=== PATIENT | female | born 1970 | race Caucasian/White ===

== ENCOUNTER 2021-05-23 09:15 | Emergency (ER) | payer OTHER ==
--- OUTSIDE RECORDS SUMMARY | 2021-05-23 09:18 | XMS REPORT | Continuity of Care Document ---
:1970 Author Organization [facility] t Address [address] [place] [address] Care Team Providers Name Role Phone Siver Primary Care Physician THANH Attending Clinician Unavailable Thanh ZAMUDIO Attending Clinician Doctor Unassigned, Name Attending Clinician Unavailable Payers Payer Name Policy Type Policy Number Effective Date Expiration Date S shilo [employer] MEDICARE [id number] 2019 00:00:00 Problems Condition Condition Condition Status Onset Resolution Last Treating Co mments Source Name Details Category Date Date Treatment Clinician Date No known No known Disease Unive rs active active ity of problems problems [facility] Allergies, Adverse Reactions, Alerts Allergy Allergy Status Severity Reaction(s) Onset Inactive Treating Comm ents Source Name Type Date Date Clinician NO KNOWN Drug Active Univers ALLERGIE Class ity of S [facility] Social History Social Habit Start Date Stop Date Quantity Comments Source Exposure to Not sure [facility] SARS-CoV-2 (event) Medica l Branch Sex Assigned At [birth year] [facility] 00:00:00 00:00:00 Medical Branch Smoking Status Start Date Stop Date Source Unknown if ever smoked [facility] Medications Ordered Filled Start Stop Current Ordering Indication Dosage Frequency Signature Comments Components Source Medication Medication Date Date Medication? Clinician (SIG) Name Name dapaglifloz 2020-05 Yes [id number] 10mg Take 1 Univers in 1-15 tablet by ity of (FARXIGA) 00:00: mouth [place] 10 mg 00 daily. Medical tablet Branch glimepiride 2020-05 Yes [id number] 2mg Take 1 Univers 2 mg tablet 1-15 tablet by ity of 00:00: mouth [place] 00 daily with Medical breakfast. Branch semaglutide 2020-05 Yes [id number] 1mg inject 1 Univers (OZEMPIC) 1 1-15 mg under ity of mg/dose (4 00:00: the skin [place] mg/3 mL) 00 weekly. Medical PnIj Branch dapaglifloz 2020-05 Yes [id number] 10mg Take 1 Univers in 1-15 tablet by ity of (FARXIGA) 00:00: mouth [place] 10 mg 00 daily. Medical tablet Branch glimepiride 2020-05 Yes [id number] 2mg Take 1 Univers 2 mg tablet 1-15 tablet by ity of 00:00: mouth [place] 00 daily with Medical breakfast. Branch semaglutide 2020-05 Yes [id number] 1mg inject 1 Univers (OZEMPIC) 1 1-15 mg under ity of mg/dose (4 00:00: the skin [place] mg/3 mL) 00 weekly. Medical PnIj Branch dapaglifloz 2020-05 Yes [id number] 10mg Take 1 Univers in 1-15 tablet by ity of (FARXIGA) 00:00: mouth [place] 10 mg 00 daily. Medical tablet Branch glimepiride 2020-05 Yes [id number] 2mg Take 1 Univers 2 mg tablet 1-15 tablet by ity of 00:00: mouth [place] 00 daily with Medical breakfast. Branch semaglutide 2020-05 Yes [id number] 1mg inject 1 Univers (OZEMPIC) 1 1-15 mg under ity of mg/dose (4 00:00: the skin [place] mg/3 mL) 00 weekly. Medical PnIj Branch dapaglifloz 2020-05 Yes [id number] 10mg Take 1 Univers in 1-15 tablet by ity of (FARXIGA) 00:00: mouth [place] 10 mg 00 daily. Medical tablet Branch glimepiride 2020-05 Yes [id number] 2mg Take 1 Univers 2 mg tablet 1-15 tablet by ity of 00:00: mouth [place] 00 daily with Medical breakfast. Branch semaglutide 2020-05 Yes [id number] 1mg inject 1 Univers (OZEMPIC) 1 1-15 mg under ity of mg/dose (4 00:00: the skin [place] mg/3 mL) 00 weekly. Medical PnIj Branch GLIMEPIRIDE 2020-05- No [id number] 2mg TAKE 1 Univers 2 mg tablet 05-15 TABLET BY it y of 00:00: 00:00 MOUTH [place] 00 :00 DAILY WITH Medical BREAKFAST Branch GLIMEPIRIDE 2020-05- No [id number] 2mg TAKE 1 Univers 2 mg tablet 05-15 TABLET BY it y of 00:00: 00:00 MOUTH [place] 00 :00 DAILY WITH Medical BREAKFAST Branch dapaglifloz 2020- No [id number] 10mg Take 1 Univers in 09-17 tablet by ity of ([facility]) 00:00: 00:00 mouth [place] 10 mg 00 :00 daily. Medical tablet Branch dapaglifloz 2020- No [id number] 10mg Take 1 Univers in 09-17 tablet by ity of ([facility]) 00:00: 00:00 mouth [place] 10 mg 00 :00 daily. Medical tablet Branch semaglutide 2020- No [id number] 1mg inject 1 Univers (OZEMPIC) 1 5-03 11-15 mg under ity of mg/dose (4 00:00: 00:00 [place] mg/3 mL) 00 :00 weekly. Medical PnIj Branch semaglutide 2020- No [id number] 1mg inject 1 Univers (OZEMPIC) 1 5-03 11-15 mg under ity of mg/dose (4 00:00: 00:00 [place] mg/3 mL) 00 :00 weekly. Medical PnIj Branch dulaglutide 2020- No 3mg inject 0.5 Univers injection 3-04 11-15 mL under ity o f 00:00: 00:00 the skin [place] 00 :00 weekly. (3 Medical mg dose) Branch dulaglutide 2020- No 3mg inject 0.5 Univers injection 3-04 11-15 mL under ity o f 00:00: 00:00 the skin [place] 00 :00 weekly. (3 Medical mg dose) Branch Lancets 2019-05 Yes Use to Univers (ACCU-CHEK 2-03 check ity of FASTCLIX 00:00: blood [place] LANCET 00 sugar 1X Medical DRUM) Misc daily. Branch DX:E11.65 blood sugar 2019-05 Yes Use to Univ ers diagnostic 2-03 check ity of (ACCU-CHEK 00:00: blood [place] GUIDE TEST 00 sugar 1X Medic al STRIPS) daily. Branch strip DX:E11.65 Blood-Gluco 2019-05 Yes Use to Univ ers se Meter 2-03 check ity of (ACCU-CHEK 00:00: blood [place] GUIDE 00 sugar 1X Medical GLUCOSE daily. Branch METER) Misc DX:E11.65 Lancets 2019-05 Yes Use to Univers (ACCU-CHEK 2-03 check ity of FASTCLIX 00:00: blood [place] LANCET 00 sugar 1X Medical DRUM) Misc daily. Branch DX:E11.65 blood sugar 2019-05 Yes Use to Univ ers diagnostic 2-03 check ity of (ACCU-CHEK 00:00: blood [place] GUIDE TEST 00 sugar 1X Medic al STRIPS) daily. Branch strip DX:E11.65 Blood-Gluco 2019-05 Yes Use to Univ ers se Meter 2-03 check ity of (ACCU-CHEK 00:00: blood [place] GUIDE 00 sugar 1X Medical GLUCOSE daily. Branch METER) Misc DX:E11. Lancets 2019-05 Yes Use to Univers (ACCU-CHEK 2-03 check ity of FASTCLIX 00:00: blood [place] LANCET 00 sugar 1X Medical DRUM) Misc daily. Branch DX:E11.65 blood sugar 2019-05 Yes Use to Univ ers diagnostic 2-03 check ity of (ACCU-CHEK 00:00: blood [place] GUIDE TEST 00 sugar 1X Medic al STRIPS) daily. Branch strip DX:E11.65 Blood-Gluco 2019-05 Yes Use to Univ ers se Meter 2-03 check ity of (ACCU-CHEK 00:00: blood [place] GUIDE 00 sugar 1X Medical GLUCOSE daily. Branch METER) Misc DX:E11.65 Lancets 2019-05 Yes Use to Univers (ACCU-CHEK 2-03 check ity of FASTCLIX 00:00: blood [place] LANCET 00 sugar 1X Medical DRUM) Misc daily. Branch DX:E11.65 blood sugar 2019-05 Yes Use to Univ ers diagnostic 2-03 check ity of (ACCU-CHEK 00:00: blood [place] GUIDE TEST 00 sugar 1X Medic al STRIPS) daily. Branch strip DX:E11.65 Blood-Gluco 2019-05 Yes Use to Univ ers se Meter 2-03 check ity of (ACCU-CHEK 00:00: blood [place] GUIDE 00 sugar 1X Medical GLUCOSE daily. Branch METER) Misc DX:E11.65 atorvastati 2019-05 Yes 40mg Take 40 mg Univers n 40 mg 1-02 by mouth ity of tablet 10:23: at [place] [address] bedtime. Medical Branch atorvastati 2019-05 Yes 40mg Take 40 mg Univers n 40 mg 1-02 by mouth ity of tablet 10:23: at [place] [address] bedtime. [facility] atorvastati 2019-05 Yes 40mg Take 40 mg Univers n 40 mg 1-02 by mouth ity of tablet 10:23: at [place] [address] bedtime. [facility] atorvastati 2019-05 Yes 40mg Take 40 mg Univers n 40 mg 1-02 by mouth ity of tablet 10:23: at [place] [address] bedtime. [facility] ezetimibe 2019-05 Yes 10mg Take 10 mg Un susie 10 mg 1-02 by mouth ity of tablet 10:23: daily. [address] ezetimibe 2019-05 Yes 10mg Take 10 mg Un susie 10 mg 1-02 by mouth ity of tablet 10:23: daily. [address] ezetimibe 2019-05 Yes 10mg Take 10 mg Un susie 10 mg 1-02 by mouth ity of tablet 10:23: daily. [address] ezetimibe 2019-05 Yes 10mg Take 10 mg Un susie 10 mg 1-02 by mouth ity of tablet 10:23: daily. [address] LISINOPRIL 2019-0 Yes Take by Uni vers ORAL 2-17 mouth. ity of 13:16: [address] LISINOPRIL 2019-0 Yes Take by Uni vers ORAL 2-17 mouth. ity of 13:16: [address] LISINOPRIL 2019-0 Yes Take by Uni vers ORAL 2-17 mouth. ity of 13:16: [address] LISINOPRIL 2019-0 Yes Take by Uni vers ORAL 2-17 mouth. ity of 13:16: [place] 53 Medical Branch omeprazole 2020-0 Yes TK 1 C PO Un susie 40 mg 2-06 D ity of capsule 00:00: [place] [facility] Branch omeprazole 2020-0 Yes TK 1 C PO Un susie 40 mg 2-06 D ity of capsule 00:00: [address] Branch omeprazole 2020-0 Yes TK 1 C PO Un susie 40 mg 2-06 D ity of capsule 00:00: [address] Branch omeprazole 2020-0 Yes TK 1 C PO Un susie 40 mg 2-06 D ity of capsule 00:00: [place] [facility] Branch haloperidol 2020-0 Yes Univer s 5 mg tablet 1-30 ity of 00:00: [place] Medical Branch haloperidol 2020-0 Yes Univer s 5 mg tablet 1-30 ity of 00:00: [place] [facility] Branch haloperidol 2020-0 Yes Univer s 5 mg tablet 1-30 ity of 00:00: [place] [facility] haloperidol 2020-0 Yes Univer s 5 mg tablet 1-30 ity of 00:00: [place] [address] Medical Branch ABILIFY 15 2020-0 Yes TK 1 T PO Un susie mg tablet 1-29 D ity of 00:00: [address] Branch benztropine 2020-0 Yes Univer s 0.5 mg 1-29 ity of tablet 00:00: [place] [address] Medical Branch ABILIFY 15 2020-0 Yes TK 1 T PO Un susie mg tablet 1-29 D ity of 00:00: [place] [facility] benztropine 2020-0 Yes Univer s 0.5 mg 1-29 ity of tablet 00:00: [address] Branch ABILIFY 15 2020-0 Yes TK 1 T PO Un susie mg tablet 1-29 D ity of 00:00: [place] [facility] Branch benztropine 2020-0 Yes Univer s 0.5 mg 1-29 ity of tablet 00:00: [place] [address] Medical Branch ABILIFY 15 2020-0 Yes TK 1 T PO Un susie mg tablet 1-29 D ity of 00:00: [place] [address] Medical Branch benztropine 2020-0 Yes Univer s 0.5 mg 1-29 ity of tablet 00:00: [place] [address] Medical [place] hydrOXYzine 2019-1 Yes TK 1 T PO U nivers 25 mg 2-28 BID ity of tablet 00:00: [address] hydrOXYzine 2019- Yes TK 1 T PO U nivers 25 mg 2-28 BID ity of tablet 00:00: [place] [facility] hydrOXYzine 2019- Yes TK 1 T PO U nivers 25 mg 2-28 BID ity of tablet 00:00: [place] [facility] hydrOXYzine 2018- Yes TK 1 T PO U nivers 25 mg 2-28 BID ity of tablet 00:00: [place] [facility] Ketoprofen 2019- Yes TK 1 C PO Un susie 200 mg C24P 2-24 ONCE D PRN it y of 00:00: [place] [facility] Ketoprofen 2019- Yes TK 1 C PO Un susie 200 mg C24P 2-24 ONCE D PRN it y of 00:00: [address] Ketoprofen 2019- Yes TK 1 C PO Un susie 200 mg C24P 2-24 ONCE D PRN it y of 00:00: [address] Ketoprofen 2018- Yes TK 1 C PO Un susie 200 mg C24P 2-24 ONCE D PRN it y of 00:00: [address] Immunizations Ordered Filled Immunization Date Status Comments Sour e Immunization Name Name Influenza Virus 2020-01-18 Completed Universit y of Vaccine 00:00:00 [facility] Influenza Virus 2020-01-18 Completed Universit y of Vaccine 00:00:00 [facility] Influenza Virus 2020-01-18 Completed Universit y of Vaccine 00:00:00 [facility] Influenza Virus 2020-01-18 Completed Universit y of Vaccine 00:00:00 [facility] Vital Signs Vital Name Observation Time Observation Value Comments Source Systolic blood 2021-03-29 18:07:00 112 mm[Hg] Univer sity [facility] Diastolic blood 2021-03-29 18:07:00 81 mm[Hg] [facility] Heart rate 2021-03-29 18:07:00 86 /min [facility] Body height 2021-03-29 18:07:00 172.7 cm [facility] Body weight 2021-03-29 18:07:00 136.079 kg [facility] BMI 2021-03-29 18:07:00 45.61 kg/m2 [facility] Oxygen saturation 2021-03-29 18:07:00 96 /min [facility] in Arterial blood Medical Br anch by Pulse oximetry Procedures Procedure Date / Time Performed Performing Clinician [facility] e POCT HEMOGLOBIN A1C 2021-03-29 18:08:00 [facility] Encounters Start End Encounter Admission Attending Care Care Encounter Source Date/Time Date/Time Type Type Clinicians Facility Department ID 2021-08-02 2021-08-02 Outpatient R [facility] [id number] Univers 11:30:00 11:30:00 [id number] 2021-08-02 2021-08-02 Outpatient R [facility] [id number] Univers 11:30:00 11:30:00 [facility] 2021-04-21 2021-04-21 Telephone Thanh [facility] [id number] Univers 00:00:00 00:00:00 Striped [place]ail [id number] it y [facility] [id number] [place] BIRD?BLEA [id number] [address] MEDICAL OFFICE BUILDING 2021-03-30 2021-03-30 Outpatient R [facility] [id number] Univers 08:45:00 08:45:00 [id number] [facility] 2021-03-30 2021-03-30 Outpatient R [facility] [id number] Univers 08:45:00 08:45:[facility] 2021-[facility] 2021-03-29 Outpatient R [facility] [id number] Univers 13:30:00 13:30:00 [id number] [facility] 2021-03-29 2021-03-29 Outpatient R [facility] [id number] Univers 13:30:00 13:30:00 [facility] 2021-03-29 2021-03-29 [facility] [id number] Univers 11:45:47 12:15:47 Visit [facility] [id number] it y [facility] [id number] [place] BIRD?BLEA [id number] [address] OFFICE [facility] 2021-03-29 2021-03-29 [facility]phone [facility] [id number] Univers 00:00:00 00:00:00 [facility] [id number] it y [facility] [id number] [place] BIRD?BLEA [id number] [address] 2020-04-16 2020-04-16 Refill [facility] [id number] 00:00:00 00:00:00 Inge [place] [id number] [place] [id number] Professio [id number] [address] 2020-03-26 2020-03-26 Orders Doctor JOSSIE [id number] 00:00:00 00:00:00 Only Unassigned, MILO [id number] [place] [id number] 2020-03-16 2020-03-16 [facility] [id number] 09:57:45 10:33:41 Visit Inge Nolan [id number] [place] [id number] Professio [id number] [address] 2020-03-16 2020-03-16 Orders Doctor JOSSIE [id number] 00:00:00 00:00:00 Only Unassigned, MILO [id number] [place] [id number] Results Test Description Test Time Test Comments Results Result Comments Source POCT HEMOGLOBIN A1C TEST 2021-03-29 18:12:00 Test Item Value Reference Range Interpretation Comme nts POCT HBA1C (test code = 4548-4) 8.0 % 4-6 A Lab Interpretation (test code = 55382-6) Abnormal [facility] HEMOGLOBIN A1C [id number] 18:12:00 Test Item Value Reference Range Interpretation Comments POCT HBA1C (test code = 4548-4) 8.0 % 4-6 A Lab Interpretation (test code = Abnormal 52651-5) [facility]
--- NOTE | 2021-05-23 10:27 | EDPHYS ---
Physician Documentation [facility] Name: Flora Ascencio Age: 51 yrs Sex: Female : 1970 Arrival Date: 05/23/2021 Time: 09:17 Bed 25 Private MD: ED Physician Brent Mcgowan HPI: 05/23 10:20 This 51 yrs old Unknown Female presents to ER via Ambulatory with complaints of Vaginal ma2 Pain. 10:20 Onset: The symptoms/episode began/occurred gradually, 60 day(s) ago. Associated signs ma2 and symptoms: Pertinent negatives: diarrhea, fever, nausea. The patient has not experienced similar symptoms in the past. Patient is here with painful vaginal ulcer for 2 months constant, not vaginal discharge, she is not sexually active. 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 - Social history:: Smoking status: Patient reports the use of cigarette tobacco products, cigars, Patient/guardian denies using alcohol, street drugs, The patient lives with family. - Family history:: not pertinent. ROS: 10:20 Negative for injury or acute deformity, urinary symptoms, hematuria, flank pain, ma2 difficulty urinating, foul smelling urine, vaginal bleeding, menstrual abnormality, missed period. 10:20 Constitutional: Negative for fever, chills, and weight loss. 10:20 All other systems are negative. Exam: 10:20 Constitutional: This is a well developed, well nourished patient who is awake, alert, ma2 and in no acute distress. Chest/axilla: Normal chest wall appearance and motion. Nontender with no deformity. No lesions are appreciated. Cardiovascular: Regular rate and rhythm with a normal S1 and S2. No gallops, murmurs, or rubs. Normal PMI, no JVD. No pulse deficits. Respiratory: Lungs have equal breath sounds bilaterally, clear to auscultation and percussion. No rales, rhonchi or wheezes noted. No increased work of breathing, no retractions or nasal flaring. Abdomen/GI: Soft, non-tender, with normal bowel sounds. No distension or tympany. No guarding or rebound. No evidence of tenderness throughout. Back: No spinal tenderness. No costovertebral tenderness. Full range of motion. Female : There is 2 painful ulcer, on the uvula, outside, otherwise there is no skin rash, and otherwise normal external genitalia. Skin: Warm, dry with normal turgor. Normal color with no rashes, no lesions, and no evidence of cellulitis. MS/ Extremity: Pulses equal, no cyanosis. Neurovascular intact. Full, normal range of motion. Neuro: Awake and alert, GCS 15, oriented to person, place, time, and situation. Cranial nerves II-XII grossly intact. Motor strength 5/5 in all extremities. Sensory grossly intact. Cerebellar exam normal. Normal gait. Vital Signs: 09:21 Pulse 113; Resp 22; Temp 97.1(TE); Pulse Ox 99% on R/A; Weight 136.08 kg; Height 5 ft. ww 8 in. (172.72 cm); Pain 6/10; 10:00 BP 172 / 83; Pulse 95; Resp 17; Pulse Ox 97% ; Pain 6/10; eo2 09:21 Body Mass Index 45.61 (136.08 kg, 172.72 cm) ww MDM: 09:34 Patient medically screened. ma2 10:20 Differential diagnosis: Painful vaginal, uvula ulcer, not raised, likely due to ma2 haemophilus Damien, unlikely STDs, unlikely herpes or syphilis. Unlikely UTI. Data reviewed: vital signs, nurses notes. Counseling: I had a detailed discussion with the patient and/or guardian regarding: the historical points, exam findings, and any diagnostic results supporting the discharge/admit diagnosis, the presence of at least one elevated blood pressure reading (>120/80) during this emergency department visit, the need for further work-up and treatment in the hospital. Response to treatment: the patient's symptoms have markedly improved after treatment. Administered Medications: 10:38 Drug: AZITHromycin 1000 mg Route: PO; eo2 10:52 Follow up: Response: No adverse reaction eo2 Disposition Summary: 05/23/21 10:25 Discharge Ordered Location: Home ma2 Condition: Stable ma2 Diagnosis - Rash and other nonspecific skin eruption - vaginal ulcer ma2 Followup: ma2 - With: Private Physician - When: Tomorrow - Reason: Continuance of care Followup: ma2 - With: Phill Reed MD - When: Tomorrow - Reason: Continuance of care Discharge Instructions: - Discharge Summary Sheet ma2 Forms: - Medication Reconciliation Form ma2 - Thank You Letter ma2 - Antibiotic Education ma2 - Prescription Opioid Use ma2 - Work release form eb Prescriptions: - Clotrimazole 1 % Vaginal Cream - insert 1 applicatorful by VAGINAL route At bedtime for 7 days; 7 Syringe; ma2 Refills: 0, Product Selection Permitted - Diclofenac Sodium 75 mg Oral Tablet Sustained Release - take 1 tablet by ORAL route 2 times per day; 30 tablet; Refills: 0, Product ma2 Selection Permitted Signatures: Dispatcher [employer] EDMS Brent Mcgowan MD MD ma2 Riri Murcia, RN RN Jen Huntley RN RN eo2 Corrections: (The following items were deleted from the chart) 10:29 09:34 IV Saline Lock ordered. ma2 eo2 10:30 09:34 Urine Dipstick-Ancillary ordered. ma2 eo2 10:30 09:34 Labs collected and sent ordered. ma2 eo2
--- NOTE | 2021-05-23 10:27 | ER ---
Nurse's Notes [facility] Name: Flora Ascencio Age: 51 yrs Sex: Female : 1970 Arrival Date: 05/23/2021 Time: 09:17 Bed 25 Private MD: Diagnosis: Rash and other nonspecific skin eruption-vaginal ulcer Presentation: 05/23 09:21 Chief complaint: Patient states: Has a sore on her vagina that has been going on for a ww few weeks and the pain is just getting worse. Attempted to treat with hydocortisone at home. Coronavirus screen: Vaccine status: Patient reports receiving the 2nd dose of the covid vaccine. Client denies travel out of the [place] in the last 14 days. Ebola Screen: Patient negative for fever greater than or equal to 101.5 degrees Fahrenheit, and additional compatible Ebola Virus Disease symptoms Patient denies exposure to infectious person. Initial Sepsis Screen: Does the patient meet any 2 criteria? No. Patient's initial sepsis screen is negative. Does the patient have a suspected source of infection? No. Patient's initial sepsis screen is negative. Risk Assessment: Do you want to hurt yourself or someone else? Patient reports no desire to harm self or others. Onset of symptoms is unknown. 09:21 Method Of Arrival: Ambulatory ww 09:21 Acuity: LILLIANA 3 ww 09:23 Note patient removed blood pressure and refused to retake in triage. ww Triage Assessment: 09:23 General: Appears uncomfortable, Behavior is agitated. Pain: Complains of pain in groin. ww Neuro: Level of Consciousness is awake, alert, obeys commands, Oriented to person, place, time, situation. Cardiovascular: Denies chest pain. Respiratory: Airway is patent Respiratory effort is even, unlabored, Respiratory pattern is regular, symmetrical. GI: No deficits noted. No signs and/or symptoms were reported involving the gastrointestinal system. : No signs and/or symptoms were reported regarding the genitourinary system. Reports vaginal sore. Derm: Reports vaginal sore. 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 - Social history:: Smoking status: Patient reports the use of cigarette tobacco products, cigars, Patient/guardian denies using alcohol, street drugs, The patient lives with family. - Family history:: not pertinent. Screenin:00 Abuse screen: Denies threats or abuse. Denies injuries from another. Nutritional eo2 screening: No deficits noted. Tuberculosis screening: No symptoms or risk factors identified. Fall Risk None identified. Assessment: 09:56 General: Appears in no apparent distress. Behavior is calm, cooperative. Neuro: Level eo2 of Consciousness is awake, alert, obeys commands, Oriented to person, place, time, situation, Denies dizziness, headache. Cardiovascular: Denies chest pain. Respiratory: Reports shortness of breath. : Reports "spot on my vagina for 3 weeks, I've been putting hydrocortisone, and it's not working". Pt denies dysuria, states "it hurts when I'm wiping", denies any discharge, states she had a colonoscopy with Dr. Coombs 3 weeks ago, had what appeared to be a period a few days after but denies vaginal bleeding since that episode. 10:28 Reassessment: Per Dr. Mcgowan, no labs or urine needed. eo2 Vital Signs: 09:21 Pulse 113; Resp 22; Temp 97.1(TE); Pulse Ox 99% on R/A; Weight 136.08 kg; Height 5 ft. ww 8 in. (172.72 cm); Pain 6/10; 10:00 BP 172 / 83; Pulse 95; Resp 17; Pulse Ox 97% ; Pain 6/10; eo2 09:21 Body Mass Index 45.61 (136.08 kg, 172.72 cm) ED Course: 09:17 Patient arrived in ED. am2 09:23 Triage completed. ww 09:23 Arm band placed on left wrist. ww 09:34 Brent Mcgowan MD is Attending Physician. ma2 09:46 Jen Huntley, [place] is Primary Nurse. eo2 10:00 Patient has correct armband on for positive identification. Pulse ox on. NIBP on. Door eo2 closed. Noise minimized. Warm blanket given. 10:20 Assist provider with pelvic exam:. eo2 10:23 Phill Reed MD is Referral Physician. ma2 10:52 Patient did not have IV access during this emergency room visit. eo2 Administered Medications: 10:38 Drug: AZITHromycin 1000 mg Route: PO; eo2 10:52 Follow up: Response: No adverse reaction eo2 Outcome: 10:25 Discharge ordered by . ma2 10: Discharged to home ambulatory. eo2 10:52 Condition: stable 10:52 Discharge instructions given to patient, Instructed on discharge instructions, follow up and referral plans. medication usage, Demonstrated understanding of instructions, follow-up care, medications, Prescriptions given X 1. 10:52 Patient left the ED. eo2 Signatures: Luisa Finch am2 Brent Mcgowan MD MD ma2 Riri Murcia, RN RN ww Jen Huntley RN RN eo2 Corrections: (The following items were deleted from the chart) 10:38 10:36 AZITHromycin 1000 mg PO eo2 eo2
[2021-05-23] MEDS ORDERED: AZITHROMYCIN 250 MG TAB ONE (10:38)
[2021-05-23 11:04] VITALS: TEMP 97.1
[2021-05-23 11:15] VITALS: BP 172/83; O2SAT 97
== END 2021-05-23 10:52 | disposition home or self-care (01) ==
LOC: ER 09:15
DX: N76.5 Ulceration of vagina (principal); R21 Rash and other nonspecific skin eruption; I10 Essential (primary) hypertension; F17.290 Nicotine dependence, other tobacco product, uncomplicated; Z88.5 Allergy status to narcotic agent; Z88.8 Allergy status to other drugs, medicaments and biological substances
CPT/HCPCS: 99284

== ENCOUNTER 2021-09-21 08:32 | Day surgery (SDC) | payer OTHER ==
[2021-09-21] MEDS ORDERED: NA CHLORIDE 0.9% 1,000 ML ONE (08:51)
[2021-09-21] MEDS ORDERED: propofoL 200 MG/20 ML VIAL IV ONE ×2 (10:21→11:44)
[2021-09-21] MEDS ORDERED: FENTANYL CITR 100 MCG/2 ML ONE (10:21)
[2021-09-21] MEDS ORDERED: MIDAZOLAM HCL 2 MG/2 ML INJ ONE (10:22)
[2021-09-21] MEDS ORDERED: LIDOCAINE 2% MPF 5 ML VIAL ONE (10:22)
[2021-09-21] MEDS: LIDOCAINE 1% W/EPI 1:100,000 MDV 50 ML VIAL ONE ×2 (11:11→11:41)
[2021-09-21] MEDS ORDERED: LABETALOL HCL 100 MG/20 ML ONE (11:43)
[2021-09-21] MEDS ORDERED: IBUPROFEN 200 MG TAB PO PRN (12:19)
--- NOTE | 2021-09-21 12:21 | P.BOP ---
Preoperative diagnosis: PMB Postoperative diagnosis: same Primary procedure: hysteroscopy d/c Estimated blood loss: min Specimen: EMC Findings: cavity empty, scant specimen Anesthesia: MAC Complications: None Transferred to: Recovery Room Condition: Good
[2021-09-21 12:27] VITALS: BP 142/98; TEMP 97.6; O2SAT 95
[2021-09-21] MEDS ORDERED: DICYCLOMINE HCL 10 MG CAP PO SCH (14:00)
[2021-09-21] MEDS ORDERED: ATORVASTATIN 20 MG TAB PO SCH (21:00)
[2021-09-21] MEDS ORDERED: GLIMEPIRIDE 2 MG TABLET PO SCH (21:00)
--- NOTE | 2021-09-21 23:56 | OP ---
Date of Procedure: 09/21/2021 Surgeon: Heidi Ambrocio MD Preoperative Diagnosis: Postmenopausal bleeding. Postoperative Diagnosis: Postmenopausal bleeding. Procedure Performed: Hysteroscopy dilatation and curettage. Anesthesia: MAC plus paracervical block. Specimens: Endometrial curettings. Complications: No complications. Drains: No drains. Condition: Stable. Findings: Endometrial cavity empty, undistorted complete cavity visualization obtained. Indications: The patient is a 51-year-old with abnormal bleeding, meeting definition for postmenopau brittany bleeding. The patient with comorbidity of morbid obesity. Transvaginal ultrasound showed thicke herrera endometrium. However, FSH was under 14. So, questionable perimenopausal bleeding, however, wanted to make sure that there is no atypia or mal ignancy in the uterine cavity. The patient is completely intolerant of any office procedures or exam ination to even visualize the cervix adequately, so she was consented for hospital procedure and brou ght in. Description Of Procedure: After informed consent was re-verified, she was taken back to OR, placed i n supine fashion on the operating table and then MAC was given. She was placed in a dorsal lithotomy position using Mohsen stirrups. Vulva and vagina were prepped and draped in a sterile fashion. Spec ulum placed to expose the cervix and the cervix was injected at 12 o'clock with 6 cc of lidocaine wit h epi. Then, 6 each at 4 and 8 o'clock positions. Two Allis clamps were held on the anterior lip. Cervix dilated to 14-Japanese. Diagnostic SlimLine hysteroscope introduced through the cervical canal and traversed into the endometrial canal without any problems. The cavity was empty, had to be rinse d out. Both tubal ostia were seen, no distortion. Scope was removed. Endometrial curettings were p erformed with a #1 curette and the specimens were scant; however, they were sent over for permanent p athology. All instruments were removed. Instrument and sponge counts were correct at the end of adi e. The patient was recovered from anesthesia and taken to PACU in stable condition. She has a 1-wee k followup appointment with us in the office. BABS/DENISSE Voice ID: [id number] Report ID: [id number]
[2021-09-22] MEDS ORDERED: VILAZODONE HCL PO SCH (09:00)
[2021-09-22] MEDS ORDERED: HOME MED 1 EA UNK (Dapagliflozin Propanediol [Farxiga] 10 MG Tablet) PO SCH (09:00)
[2021-09-22] MEDS ORDERED: FERROUS SULFATE 325 MG TAB PO SCH (09:00)
[2021-09-22] MEDS ORDERED: EZETIMIBE 10 MG TAB PO SCH (09:00)
[2021-09-22] MEDS ORDERED: METHSCOPOLAMINE BROMIDE 5 MG PO SCH (09:00)
[2021-09-22] MEDS ORDERED: CARIPRAZINE HCL 3 MG PO SCH (09:00)
[2021-09-22] MEDS ORDERED: VITAMIN D 5,000 UNIT CAP PO SCH (09:00)
[2021-09-22] MEDS ORDERED: lisinopriL 20 MG TAB PO SCH (09:00)
[2021-09-28] MEDS ORDERED: HOME MED 1 EA UNK (Semaglutide [Ozempic] 1 MG/0.75 ML Pen.Injctr) SQ SCH (09:00)
== END 2021-09-21 12:55 | disposition home or self-care (01) ==
LOC: OR 08:32
PROVIDERS: ATTEND Obstetrics & Gynecology
PROC: 0UJD8ZZ Inspection of Uterus and Cervix, Via Natural or Artificial Opening Endoscopic (ICD-10-PCS; 2021-09-21)
PROC: 0UDB7ZX Extraction of Endometrium, Via Natural or Artificial Opening, Diagnostic (ICD-10-PCS; principal; 2021-09-21 10:30)
DX: N95.0 Postmenopausal bleeding (principal); N83.292 Other ovarian cyst, left side; E11.65 Type 2 diabetes mellitus with hyperglycemia; E66.01 Morbid (severe) obesity due to excess calories; I10 Essential (primary) hypertension; Z20.822 Contact with and (suspected) exposure to COVID-19; F32.A Depression, unspecified; E78.00 Pure hypercholesterolemia, unspecified
CPT/HCPCS: 82947; 88305; 58558; U0003; J2704 ×2; J2250; J3010; J7030

== ENCOUNTER → 2023-07-28 | Emergency (ER) | payer OTHER ==
[~2023-07-28] MED LIST: ACYCLOVIR 400 MG TABLET ONE; CEFTRIAXONE 1000 MG/VIAL ONE; KETOROLAC 30 MG/ML INJ ONE; LIDOCAINE 1% MPF 2 ML AMPULE ONE; ONDANSETRON 4 MG (ODT) TAB ONE
--- OUTSIDE RECORDS SUMMARY | 2023-07-28 04:41 | XMS REPORT | Continuity of Care Document ---
Author Name Unknown Address [address] [facility] [address] [place] [address] [facility] thconnect Address [address] [facility] [address] [place] [address] Care Team Providers Care [place] [facility] Name Role Phone Sandra Owens Primary Care Physician [phone] SUZANNA CALVILLO Attending Clinician Unavailable Suzanna Lora Attending Clinician [phone] Doctor Unassigned, [place] Attending Clinician U navailable [email or web address] Attending Clinician Janna Ventura MD Attending Clinician [phone] JANNA HERNANDES Attending Clinician Unavailable Team, [facility] Attending Clinicia n Inge Hay MD Attending Clinician INGE [place] Attending Clinician Unavailable BJ BLACKWELL Attending Clinician jB Moseley MD Attending Clinician [phone] [email or web address] Admitting Clinician Sarah araujo Payers Payer Name Policy Type Policy Number Effective Date Expirati on Date Source [employer] CHO[employer] [id number] 2020 00:00:00 Problems Condition Name Condition Details Condition Category Status Onset Date Resolution Date Last Treatment Date Treating Clinician Comments Source Class 3 severe obesity due to excess calories with serious comorbidit y and body mass index (BMI) of 45.0 to 49.9 in adult Class 3 severe obesity due to excess calories with serious comorbidit y and body mass index (BMI) of 45.0 to 49.9 in adult Disease Active 10-25 00:00: 00 [facility] Mixed hyperlipid emia Mixed hyperlipid emia Disease Active 10-25 00:00: 00 [facility] Type 2 diabetes mellitus with hyperglyce yeyo, without long-term current use of insulin Type 2 diabetes mellitus with hyperglyce yeyo, without long-term current use of insulin Disease Active 08-23 00:00: 00 [facility] Allergies, Adverse Reactions, Alerts Allergy Name Allergy Type Status Severity Reaction(s) Onset Date Inactive Date Treating Clinician Comments Source CODEINE DRUG INGREDI Active Rash 10-18 00:00: 00 [facility] LORAZEPA M DRUG INGREDI Active Hives 10-18 00:00: 00 [facility] Codeine Propensi ty to adverse reaction s Active Rash 10-18 00:00: 00 [facility] Lorazepa m Propensi ty to adverse reaction s Active Hives 10-18 00:00: 00 [facility] NO KNOWN ALLERGIE S Drug Class Active [facility] Social History Social Habit Start Date Stop Date Quantity Comments Source [facility] of tobacco use Cigar Smoker [facility] Alcohol intake 2023-05-12 00:00:00 2023-05-12 00:00:00 .14 /d [facility] History of Social function 2023-04-28 00:00:00 2023-04-28 00:00:00 [facility] Exposure to SARS-CoV-2 (event) 2022-02-12 00:00:00 2022-02-22 12:15:00 Not sure [facility] Sex Assigned At 1970 00:00:00 1970 00:00:00 [facility] Smoking Status Start Date Stop Date Source Occasional tobacco smoker 2023-05-12 00:00:00 [facility] Tobacco smoking consumption unknown [facility] Medications Ordered Medication Name Filled Medication Name Start Date Stop Date Current Medication? Ordering Clinician Indication Dosage Frequency Signature (SIG) Comments Components Source empaglifloz in (JARDIANCE) 10 mg tablet 07-17 00:00: 00 Yes [id number] 10mg Take 1 tablet by mouth in the morning. [facility] DAPAGLIFLOZ IN PROPANEDIOL 10 mg tablet 07-05 00:00: 00 Yes [id number] 10mg TAKE 1 TABLET BY MOUTH IN THE MORNING [facility] DAPAGLIFLOZ IN PROPANEDIOL 10 mg tablet 07-05 00:00: 00 07-17 00:00 :00 No [id number] 10mg TAKE 1 TABLET BY MOUTH IN THE MORNING [facility] tirzepatide (MOUNJARO) 7.5 mg/0.5 mL subcutaneou s injection 06-21 00:00: 00 Yes [id number] 7.5mg inject 7.5 mg under the skin weekly. [facility] tirzepatide (MOUNJARO) 7.5 mg/0.5 mL subcutaneou s injection 06-21 00:00: 00 Yes [id number] 7.5mg inject 7.5 mg under the skin weekly. [facility] tirzepatide (MOUNJARO) 7.5 mg/0.5 mL subcutaneou s injection 06-21 00:00: 00 Yes [id number] 7.5mg inject 7.5 mg under the skin weekly. [facility] tirzepatide (MOUNJARO) 7.5 mg/0.5 mL subcutaneou s injection 06-21 00:00: 00 Yes [id number] 7.5mg inject 7.5 mg under the skin weekly. [facility] glimepiride 2 mg tablet - 00:00: 00 Yes [id number] 2mg Take 1 tablet by mouth 2 (two) times daily before breakfast and dinner. [facility] glimepiride 2 mg tablet 05-23 00:00: 00 Yes [id number] 2mg Take 1 tablet by mouth 2 (two) times daily before breakfast and dinner. [facility] glimepiride 2 mg tablet 4-0 1-09 00:00: 00 Yes [id number] 2mg Take 1 tablet by mouth 2 (two) times daily before breakfast and dinner. [facility] glimepiride 2 mg tablet 4-0 1-09 00:00: 00 Yes [id number] 2mg Take 1 tablet by mouth 2 (two) times daily before breakfast and dinner. [facility] glimepiride 2 mg tablet 4-0 1-09 00:00: 00 Yes [id number] 2mg Take 1 tablet by mouth 2 (two) times daily before breakfast and dinner. [facility] dapaglifloz in (FARXIGA) 10 mg tablet 3-0 6-12 00:00: 00 Yes [id number] TAKE 1 TABLET BY MOUTH IN THE MORNING [facility] dapaglifloz in (FARXIGA) 10 mg tablet 3-0 6-12 00:00: 00 Yes [id number] TAKE 1 TABLET BY MOUTH IN THE MORNING [facility] dapaglifloz in (FARXIGA) 10 mg tablet 3-0 6-12 00:00: 00 Yes [id number] TAKE 1 TABLET BY MOUTH IN THE MORNING [facility] dapaglifloz in (FARXIGA) 10 mg tablet 3-0 6-12 00:00: 00 Yes [id number] TAKE 1 TABLET BY MOUTH IN THE MORNING [facility] dapaglifloz in (FARXIGA) 10 mg tablet 3-0 6-12 00:00: 00 Yes [id number] TAKE 1 TABLET BY MOUTH IN THE MORNING [facility] dapaglifloz in (FARXIGA) 10 mg tablet 3-0 6-12 00:00: 00 Yes [id number] TAKE 1 TABLET BY MOUTH IN THE MORNING [facility] dapaglifloz in (FARXIGA) 10 mg tablet 2023-0 6-12 00:00: 00 Yes [id number] TAKE 1 TABLET BY MOUTH IN THE MORNING [facility] dapaglifloz in (FARXIGA) 10 mg tablet 2023-0 6-12 00:00: 00 07-05 00:00 :00 No [id number] TAKE 1 TABLET BY MOUTH IN THE MORNING [facility] Fe gluconate/v it C/folic acid (IRON-C ORAL) 10-18 13:42: 41 Yes [facility] Fe gluconate/v it C/folic acid (IRON-C ORAL) 0 10-18 13:42: 41 Yes [facility] Fe gluconate/v it C/folic acid (IRON-C ORAL) 0 10-18 13:42: 41 Yes [facility] Fe gluconate/v it C/folic acid (IRON-C ORAL) 10-18 13:42: 41 Yes [facility] Fe gluconate/v it C/folic acid (IRON-C ORAL) 10-18 13:42: 41 Yes [facility] Fe gluconate/v it C/folic acid (IRON-C ORAL) 10-18 13:42: 41 Yes [facility] Fe gluconate/v it C/folic acid (IRON-C ORAL) 0 10-18 13:42: 41 Yes [facility] Fe gluconate/v it C/folic acid (IRON-C ORAL) 10-18 13:42: 41 Yes [facility] Fe gluconate/v it C/folic acid (IRON-C ORAL) 0 10-18 13:42: 41 Yes [facility] Fe gluconate/v it C/folic acid (IRON-C ORAL) 0 10-18 13:42: 41 Yes [facility] Fe gluconate/v it C/folic acid (IRON-C ORAL) 10-18 13:42: 41 Yes [facility] L. acidophilus /Bifido. longum (PROBIOTIC PEARLS ORAL) 0 10-18 13:42: 40 Yes [facility] L. acidophilus /Bifido. longum (PROBIOTIC PEARLS ORAL) 10-18 13:42: 40 Yes [facility] L. acidophilus /Bifido. longum (PROBIOTIC PEARLS ORAL) 10-18 13:42: 40 Yes [facility] L. acidophilus /Bifido. longum (PROBIOTIC PEARLS ORAL) 10-18 13:42: 40 Yes [facility] L. acidophilus /Bifido. longum (PROBIOTIC PEARLS ORAL) 10-18 13:42: 40 Yes [facility] L. acidophilus /Bifido. longum (PROBIOTIC PEARLS ORAL) 10-18 13:42: 40 Yes [facility] L. acidophilus /Bifido. longum (PROBIOTIC PEARLS ORAL) 10-18 13:42: 40 Yes [facility] L. acidophilus /Bifido. longum (PROBIOTIC PEARLS ORAL) 10-18 13:42: 40 Yes [facility] L. acidophilus /Bifido. longum (PROBIOTIC PEARLS ORAL) 10-18 13:42: 40 Yes [facility] L. acidophilus /Bifido. longum (PROBIOTIC PEARLS ORAL) 10-18 13:42: 40 Yes [facility] L. acidophilus /Bifido. longum (PROBIOTIC PEARLS ORAL) 10-18 13:42: 40 Yes [facility] mv-mn/iron/ folic acid/herb 190 (VITAMIN D3 COMPLETE ORAL) 10-18 13:42: 39 Yes [facility] mv-mn/iron/ folic acid/herb 190 (VITAMIN D3 COMPLETE ORAL) 10-18 13:42: 39 Yes [facility] mv-mn/iron/ folic acid/herb 190 (VITAMIN D3 COMPLETE ORAL) 10-18 13:42: 39 Yes [facility] mv-mn/iron/ folic acid/herb 190 (VITAMIN D3 COMPLETE ORAL) 10-18 13:42: 39 Yes [facility] mv-mn/iron/ folic acid/herb 190 (VITAMIN D3 COMPLETE ORAL) 10-18 13:42: 39 Yes [facility] mv-mn/iron/ folic acid/herb 190 (VITAMIN D3 COMPLETE ORAL) 0 10-18 13:42: 39 Yes [facility] mv-mn/iron/ folic acid/herb 190 (VITAMIN D3 COMPLETE ORAL) 0 10-18 13:42: 39 Yes [facility] mv-mn/iron/ folic acid/herb 190 (VITAMIN D3 COMPLETE ORAL) 0 10-18 13:42: 39 Yes [facility] mv-mn/iron/ folic acid/herb 190 (VITAMIN D3 COMPLETE ORAL) 0 10-18 13:42: 39 Yes [facility] mv-mn/iron/ folic acid/herb 190 (VITAMIN D3 COMPLETE ORAL) 0 10-18 13:42: 39 Yes [facility] mv-mn/iron/ folic acid/herb 190 (VITAMIN D3 COMPLETE ORAL) 0 10-18 13:42: 39 Yes [facility] LISINOPRIL ORAL 0 10-18 13:22: 37 Yes Take by mouth. [facility] LISINOPRIL ORAL 0 10-18 13:22: 37 Yes Take by mouth. [facility] LISINOPRIL ORAL 0 10-18 13:22: 37 Yes Take by mouth. [facility] LISINOPRIL ORAL 0 10-18 13:22: 37 Yes Take by mouth. [facility] LISINOPRIL ORAL 0 10-18 13:22: 37 Yes Take by mouth. [facility] LISINOPRIL ORAL 2022-0 10-18 13:22: 37 Yes Take by mouth. [facility] LISINOPRIL ORAL 2022-0 10-18 13:22: 37 Yes Take by mouth. [facility] LISINOPRIL ORAL 0 10-18 13:22: 37 Yes Take by mouth. [facility] LISINOPRIL ORAL 2022-0 10-18 13:22: 37 Yes Take by mouth. [facility] LISINOPRIL ORAL 2022-10-18 13:22: 37 Yes Take by mouth. [facility] LISINOPRIL ORAL 10-18 13:22: 37 Yes Take by mouth. [facility] atorvastati n 40 mg tablet 10-18 13:22: 14 Yes 40mg Take 40 mg by mouth at bedtime. [facility] atorvastati n 40 mg tablet 10-18 13:22: 14 Yes 40mg Take 40 mg by mouth at bedtime. [facility] atorvastati n 40 mg tablet 10-18 13:22: 14 Yes 40mg Take 40 mg by mouth at bedtime. [facility] atorvastati n 40 mg tablet 10-18 13:22: 14 Yes 40mg Take 40 mg by mouth at bedtime. [facility] atorvastati n 40 mg tablet 10-18 13:22: 14 Yes 40mg Take 40 mg by mouth at bedtime. [facility] atorvastati n 40 mg tablet 10-18 13:22: 14 Yes 40mg Take 40 mg by mouth at bedtime. [facility] atorvastati n 40 mg tablet 10-18 13:22: 14 Yes 40mg Take 40 mg by mouth at bedtime. [facility] atorvastati n 40 mg tablet 10-18 13:22: 14 Yes 40mg Take 40 mg by mouth at bedtime. [facility] atorvastati n 40 mg tablet 10-18 13:22: 14 Yes 40mg Take 40 mg by mouth at bedtime. [facility] atorvastati n 40 mg tablet 0 10-18 13:22: 14 Yes 40mg Take 40 mg by mouth at bedtime. [facility] atorvastati n 40 mg tablet 0 10-18 13:22: 14 Yes 40mg Take 40 mg by mouth at bedtime. [facility] ezetimibe 10 mg tablet 10-18 13:22: 13 Yes 10mg Take 10 mg by mouth daily. [facility] ezetimibe 10 mg tablet 2022-0 10-18 13:22: 13 Yes 10mg Take 10 mg by mouth daily. [facility] ezetimibe 10 mg tablet 2022-0 10-18 13:22: 13 Yes 10mg Take 10 mg by mouth daily. [facility] ezetimibe 10 mg tablet 0 10-18 13:22: 13 Yes 10mg Take 10 mg by mouth daily. [facility] ezetimibe 10 mg tablet 2022-0 10-18 13:22: 13 Yes 10mg Take 10 mg by mouth daily. [facility] ezetimibe 10 mg tablet 0 10-18 13:22: 13 Yes 10mg Take 10 mg by mouth daily. [facility] ezetimibe 10 mg tablet 0 10-18 13:22: 13 Yes 10mg Take 10 mg by mouth daily. [facility] ezetimibe 10 mg tablet 0 10-18 13:22: 13 Yes 10mg Take 10 mg by mouth daily. [facility] ezetimibe 10 mg tablet 0 10-18 13:22: 13 Yes 10mg Take 10 mg by mouth daily. [facility] ezetimibe 10 mg tablet 0 10-18 13:22: 13 Yes 10mg Take 10 mg by mouth daily. [facility] ezetimibe 10 mg tablet 0 10-18 13:22: 13 Yes 10mg Take 10 mg by mouth daily. [facility] semaglutide (OZEMPIC) 2 mg/dose (8 mg/3 mL) PnIj 0 10-18 00:00: 00 Yes [id number] 2mg inject 2 mg under the skin weekly. [facility] glimepiride 2 mg tablet 0 10-18 00:00: 00 Yes [id number] 2mg Take 1 tablet by mouth 2 (two) times daily before breakfast and dinner. [facility] semaglutide (OZEMPIC) 2 mg/dose (8 mg/3 mL) PnIj 10-18 00:00: 00 Yes [id number] 2mg inject 2 mg under the skin weekly. [facility] glimepiride 2 mg tablet 10-18 00:00: 00 Yes [id number] 2mg Take 1 tablet by mouth 2 (two) times daily before breakfast and dinner. [facility] semaglutide (OZEMPIC) 2 mg/dose (8 mg/3 mL) PnIj 10-18 00:00: 00 Yes [id number] 2mg inject 2 mg under the skin weekly. [facility] glimepiride 2 mg tablet 10-18 00:00: 00 Yes [id number] 2mg Take 1 tablet by mouth 2 (two) times daily before breakfast and dinner. [facility] semaglutide (OZEMPIC) 2 mg/dose (8 mg/3 mL) PnIj 10-18 00:00: 00 Yes [id number] 2mg inject 2 mg under the skin weekly. [facility] glimepiride 2 mg tablet 10-18 00:00: 00 Yes [id number] 2mg Take 1 tablet by mouth 2 (two) times daily before breakfast and dinner. [facility] semaglutide (OZEMPIC) 2 mg/dose (8 mg/3 mL) PnIj 10-18 00:00: 00 Yes [id number] 2mg inject 2 mg under the skin weekly. [facility] glimepiride 2 mg tablet 10-18 00:00: 00 Yes [id number] 2mg Take 1 tablet by mouth 2 (two) times daily before breakfast and dinner. [facility] semaglutide (OZEMPIC) 2 mg/dose (8 mg/3 mL) PnIj 0 10-18 00:00: 00 Yes [id number] 2mg inject 2 mg under the skin weekly. [facility] glimepiride 2 mg tablet 10-18 00:00: 00 Yes [id number] 2mg Take 1 tablet by mouth 2 (two) times daily before breakfast and dinner. [facility] semaglutide (OZEMPIC) 2 mg/dose (8 mg/3 mL) PnIj 0 6-06 00:00: 00 Yes [id number] 2mg inject 2 mg under the skin weekly. [facility] semaglutide (OZEMPIC) 2 mg/dose (8 mg/3 mL) PnIj 0 6- 00:00: 00 06-21 00:00 :00 No [id number] 2mg inject 2 mg under the skin weekly. [facility] glimepiride 2 mg tablet 0 - 00:00: 00 05-23 00:00 :00 No [id number] 2mg Take 1 tablet by mouth 2 (two) times daily before breakfast and dinner. [facility] dapaglifloz in ([facility]) 10 mg tablet 3-0 5-25 00:00: 00 Yes [id number] 10mg Take 1 tablet by mouth in the morning. NEED TO MAKE FOLLOW UP APPT FOR FURTHER REFILLS [facility] 10 mg tablet 3-0 5-25 00:00: 00 10-24 00:00 :00 No [id number] 10mg Take 1 tablet by mouth in the morning. NEED TO MAKE FOLLOW UP APPT FOR FURTHER REFILLS [facility]loz in [facility] 10 mg tablet 3-0 5-25 00:00: 00 10-24 00:00 :00 No [id number] 10mg Take 1 tablet by mouth in the morning. NEED TO MAKE FOLLOW UP APPT FOR FURTHER REFILLS [facility]loz in [facility] 10 mg tablet 3-0 5-25 00:00: 00 10-24 00:00 :00 No [id number] 10mg Take 1 tablet by mouth in the morning. NEED TO MAKE FOLLOW UP APPT FOR FURTHER REFILLS [facility] ABILIFY 10 mg tablet 2023-0 5-10 00:00: 00 Yes [facility] ABILIFY 10 mg tablet 3-0 5-10 00:00: 00 Yes [facility] ABILIFY 10 mg tablet 2023-0 5-10 00:00: 00 Yes [facility] ABILIFY 10 mg tablet 2023-0 5-10 00:00: 00 Yes [facility] ABILIFY 10 mg tablet 2023-0 5-10 00:00: 00 Yes [facility] ABILIFY 10 mg tablet 3-0 5-10 00:00: 00 Yes [facility] ABILIFY 10 mg tablet 2023-0 5-10 00:00: 00 Yes [facility] ABILIFY 10 mg tablet 2023-0 5-10 00:00: 00 Yes [facility] ABILIFY 10 mg tablet 3-0 5-10 00:00: 00 Yes [facility] ABILIFY 10 mg tablet 3-0 5-10 00:00: 00 Yes [facility] ABILIFY 10 mg tablet 3-0 5-10 00:00: 00 Yes [facility] azelastine 137 mcg (0.1 %) nasal spray 2022-0 08-10 00:00: 00 Yes USE 1 TO 2 SPRAYS IN EACH NOSTRIL TWICE DAILY [facility] azelastine 137 mcg (0.1 %) nasal spray 2022-0 08-10 00:00: 00 Yes USE 1 TO 2 SPRAYS IN EACH NOSTRIL TWICE DAILY [facility] azelastine 137 mcg (0.1 %) nasal spray 2022-0 08-10 00:00: 00 Yes USE 1 TO 2 SPRAYS IN EACH NOSTRIL TWICE DAILY [facility] azelastine 137 mcg (0.1 %) nasal spray 2022-0 08-10 00:00: 00 Yes USE 1 TO 2 SPRAYS IN EACH NOSTRIL TWICE DAILY [facility] azelastine 137 mcg (0.1 %) nasal spray 2022-0 08-10 00:00: 00 Yes USE 1 TO 2 SPRAYS IN EACH NOSTRIL TWICE DAILY [facility] azelastine 137 mcg (0.1 %) nasal spray 2022-0 08-10 00:00: 00 Yes USE 1 TO 2 SPRAYS IN EACH NOSTRIL TWICE DAILY [facility] azelastine 137 mcg (0.1 %) nasal spray 08-10 00:00: 00 Yes USE 1 TO 2 SPRAYS IN EACH NOSTRIL TWICE DAILY [facility] azelastine 137 mcg (0.1 %) nasal spray 08-10 00:00: 00 Yes USE 1 TO 2 SPRAYS IN EACH NOSTRIL TWICE DAILY [facility] azelastine 137 mcg (0.1 %) nasal spray 08-10 00:00: 00 Yes USE 1 TO 2 SPRAYS IN EACH NOSTRIL TWICE DAILY [facility] azelastine 137 mcg (0.1 %) nasal spray 08-10 00:00: 00 Yes USE 1 TO 2 SPRAYS IN EACH NOSTRIL TWICE DAILY [facility] azelastine 137 mcg (0.1 %) nasal spray 08-10 00:00: 00 Yes USE 1 TO 2 SPRAYS IN EACH NOSTRIL TWICE DAILY [facility] glimepiride 2 mg tablet 2021-05 00:00: 00 Yes [id number] 2mg Take 1 tablet by mouth 2 (two) times daily before breakfast and dinner. [facility] dapaglifloz in ([facility]) 10 mg tablet 2021-05 00:00: 00 Yes [id number] 10mg Take 1 tablet by mouth in the morning. [facility] semaglutide (OZEMPIC) 1 mg/dose (4 mg/3 mL) PnIj 2021-05 00:00: 00 Yes [id number] 1mg inject 1 mg under the skin weekly. [facility] glimepiride 2 mg tablet 2021-05 00:00: 00 Yes [id number] 2mg Take 1 tablet by mouth 2 (two) times daily before breakfast and dinner. [facility]loz in ([facility] 10 mg tablet 2021-05 00:00: 00 Yes [id number] 10mg Take 1 tablet by mouth in the morning. [facility] semaglutide (OZEMPIC) 1 mg/dose (4 mg/3 mL) PnIj 2021-05 00:00: 00 Yes [id number] 1mg inject 1 mg under the skin weekly. [facility] glimepiride 2 mg tablet 2021-05 00:00: 00 Yes [id number] 2mg Take 1 tablet by mouth 2 (two) times daily before breakfast and dinner. [facility] dapaglifloz in (FARXIGA) 10 mg tablet 2021-05 00:00: 00 Yes [id number] 10mg Take 1 tablet by mouth in the morning. [facility] semaglutide (OZEMPIC) 1 mg/dose (4 mg/3 mL) [facility] 2021-05 00:00: 00 Yes [id number] 1mg inject 1 mg under the skin weekly. [facility] glimepiride 2 mg tablet 2021-05 00:00: 00 Yes [id number] 2mg Take 1 tablet by mouth 2 (two) times daily before breakfast and dinner. [facility] d[facility]loz in ([facility] 10 mg tablet 2021-05 00:00: 00 Yes [id number] 10mg Take 1 tablet by mouth in the morning. [facility] semaglutide (OZEMPIC) 1 mg/dose (4 mg/3 mL) Ij 2021-05 00:00: 00 Yes [id number] 1mg inject 1 mg under the skin weekly. [facility] glimepiride 2 mg tablet 2021-05 00:00: 00 Yes [id number] 2mg Take 1 tablet by mouth 2 (two) times daily before breakfast and dinner. [facility] dapaglifloz in ([facility]) 10 mg tablet 2021-05 00:00: 00 Yes [id number] 10mg Take 1 tablet by mouth in the morning. [facility] semaglutide (OZEMPIC) 1 mg/dose (4 mg/3 mL) PnIj 2021-05 00:00: 00 Yes [id number] 1mg inject 1 mg under the skin weekly. [facility] glimepiride 2 mg tablet 2021-05 0-11 00:00: 00 Yes [id number] 2mg Take 1 tablet by mouth 2 (two) times daily before breakfast and dinner. [facility] semaglutide (OZEMPIC) 1 mg/dose (4 mg/3 mL) PnIj 2021-05 0-11 00:00: 00 Yes [id number] 1mg inject 1 mg under the skin weekly. [facility] glimepiride 2 mg tablet 2021-05 0 00:00: 00 10-18 00:00 :00 No [id number] 2mg Take 1 tablet by mouth 2 (two) times daily before breakfast and dinner. [facility] semaglutide (OZEMPIC) 1 mg/dose (4 mg/3 mL) PnIj 2021-05 0 00:00: 00 10-18 00:00 :00 No [id number] 1mg inject 1 mg under the skin weekly. [facility] glimepiride 2 mg tablet 2021-05 0 00:00: 00 10-18 00:00 :00 No [id number] 2mg Take 1 tablet by mouth 2 (two) times daily before breakfast and dinner. [facility] semaglutide (OZEMPIC) 1 mg/dose (4 mg/3 mL) PnIj 2021-05 0 00:00: 00 10-18 00:00 :00 No [id number] 1mg inject 1 mg under the skin weekly. [facility] dapaglifloz in (FARXIGA) 10 mg tablet 2021-05 0-11 00:00: 00 10-06 00:00 :00 No [id number] 10mg Take 1 tablet by mouth in the morning. [facility] vilazodone 20 mg 2021- 0-10 00:00: 00 Yes [facility] vilazodone 20 mg 2021- 0-10 00:00: 00 Yes [facility] vilazodone 20 mg 2021- 0-10 00:00: 00 Yes [facility] vilazodone 20 mg 2-1 0-10 00:00: 00 Yes [facility] vilazodone 20 mg 2-1 0-10 00:00: 00 Yes [facility] ity [facility] vilazodone 20 mg 2-1 0-10 00:00: 00 Yes [facility] ity [facility] vilazodone 20 mg 2-1 0-10 00:00: 00 10-18 00:00 :00 No [facility] ity [facility] vilazodone 20 mg 2-1 0-10 00:00: 00 10-18 00:00 :00 No [facility] ity [facility] semaglutide (OZEMPIC) 1 mg/dose (4 mg/3 mL) PnIj 08-23 00:00: 00 Yes [id number] 1mg inject 1 mg under the skin weekly. [facility] glimepiride 2 mg tablet 08-23 00:00: 00 Yes [id number] 2mg Take 1 tablet by mouth 2 (two) times daily before breakfast and dinner. [facility] dapaglifloz in (FARXIGA) 10 mg tablet 2021-0 08-23 00:00: 00 Yes [id number] 10mg Take 1 tablet by mouth daily. [facility] semaglutide (OZEMPIC) 1 mg/dose (4 mg/3 mL) PnIj 0 08-23 00:00: 00 Yes [id number] 1mg inject 1 mg under the skin weekly. [facility] glimepiride 2 mg tablet 0 08-23 00:00: 00 Yes [id number] 2mg Take 1 tablet by mouth 2 (two) times daily before breakfast and dinner. [facility] dapaglifloz in (FARXIGA) 10 mg tablet 0 08-23 00:00: 00 Yes [id number] 10mg Take 1 tablet by mouth daily. [facility] semaglutide (OZEMPIC) 1 mg/dose (4 mg/3 mL) PnIj 0 - 00:00: 00 Yes [id number] 1mg inject 1 mg under the skin weekly. [facility] glimepiride 2 mg tablet 0 08-23 00:00: 00 Yes [id number] 2mg Take 1 tablet by mouth 2 (two) times daily before breakfast and dinner. [facility] dapaglifloz in ([facility]) 10 mg tablet 0 08-23 00:00: 00 Yes [id number] 10mg Take 1 tablet by mouth daily. [facility] semaglutide (OZEMPIC) 1 mg/dose (4 mg/3 mL) PnIj 0 08-23 00:00: 00 Yes [id number] 1mg inject 1 mg under the skin weekly. [facility] glimepiride 2 mg tablet 08-23 00:00: 00 Yes [id number] 2mg Take 1 tablet by mouth 2 (two) times daily before breakfast and dinner. [facility] dapaglifloz in ([facility]) 10 mg tablet 08-23 00:00: 00 Yes [id number] 10mg Take 1 tablet by mouth daily. [facility] semaglutide (OZEMPIC) 1 mg/dose (4 mg/3 mL) PnIj 0 08-23 00:00: 00 Yes [id number] 1mg inject 1 mg under the skin weekly. [facility] glimepiride 2 mg tablet 2021-0 08-23 00:00: 00 Yes [id number] 2mg Take 1 tablet by mouth 2 (two) times daily before breakfast and dinner. [facility] dapaglifloz in ([facility]) 10 mg tablet 2021-0 08-23 00:00: 00 Yes [id number] 10mg Take 1 tablet by mouth daily. [facility] semaglutide (OZEMPIC) 1 mg/dose (4 mg/3 mL) PnIj 0 08-23 00:00: 00 Yes [id number] 1mg inject 1 mg under the skin weekly. [facility] glimepiride 2 mg tablet 2021-0 - 00:00: 00 Yes [id number] 2mg Take 1 tablet by mouth 2 (two) times daily before breakfast and dinner. [facility] dapaglifloz in ([facility]) 10 mg tablet 08-23 00:00: 00 Yes [id number] 10mg Take 1 tablet by mouth daily. [facility] glimepiride 2 mg tablet 08-23 00:00: 00 02-22 00:00 :00 No [id number] 2mg Take 1 tablet by mouth 2 (two) times daily before breakfast and dinner. [facility] dapaglifloz in ([facility]) 10 mg tablet 08-23 00:00: 00 02-22 00:00 :00 No [id number] 10mg Take 1 tablet by mouth daily. [facility] semaglutide (OZEMPIC) 1 mg/dose (4 mg/3 mL) Ij 08-23 00:00: 00 02-22 00:00 :00 No [id number] 1mg inject 1 mg under the skin weekly. [facility] glimepiride 2 mg tablet 08-23 00:00: 00 02-22 00:00 :00 No [id number] 2mg Take 1 tablet by mouth 2 (two) times daily before breakfast and dinner. [facility] dapaglifloz in ([facility]) 10 mg tablet 08-23 00:00: 00 02-22 00:00 :00 No [id number] 10mg Take 1 tablet by mouth daily. [facility] semaglutide (OZEMPIC) 1 mg/dose (4 mg/3 mL) PnIj 08-23 00:00: 00 02-22 00:00 :00 No [id number] 1mg inject 1 mg under the skin weekly. [facility] valACYclovi r 500 mg tablet 18 00:00: 00 Yes 500mg Take 500 mg by mouth 2 (two) times daily. [facility] valACYclovi r 500 mg tablet 18 00:00: 00 Yes 500mg Take 500 mg by mouth 2 (two) times daily. [facility] valACYclovi r 500 mg tablet 18 00:00: 00 Yes 500mg Take 500 mg by mouth 2 (two) times daily. [facility] valACYclovi r 500 mg tablet 2021-0 3-18 00:00: 00 Yes 500mg Take 500 mg by mouth 2 (two) times daily. [facility] valACYclovi r 500 mg tablet 2021-0 3-18 00:00: 00 Yes 500mg Take 500 mg by mouth 2 (two) times daily. [facility] valACYclovi r 500 mg tablet 2021-0 318 00:00: 00 Yes 500mg Take 500 mg by mouth 2 (two) times daily. [facility] valACYclovi r 500 mg tablet 2021-0 18 00:00: 00 Yes 500mg Take 500 mg by mouth 2 (two) times daily. [facility] valACYclovi r 500 mg tablet 2021-0 318 00:00: 00 Yes 500mg Take 500 mg by mouth 2 (two) times daily. [facility] valACYclovi r 500 mg tablet 2021-0 18 00:00: 00 Yes 500mg Take 500 mg by mouth 2 (two) times daily. [facility] valACYclovi r 500 mg tablet 2021-0 18 00:00: 00 Yes 500mg Take 500 mg by mouth 2 (two) times daily. [facility] valACYclovi r 500 mg tablet 2021-0 318 00:00: 00 Yes 500mg Take 500 mg by mouth 2 (two) times daily. [facility] valACYclovi r 500 mg tablet 2021-0 318 00:00: 00 Yes 500mg Take 500 mg by mouth 2 (two) times daily. [facility] valACYclovi r 500 mg tablet 2-0 3-18 00:00: 00 Yes 500mg Take 500 mg by mouth 2 (two) times daily. [facility] valACYclovi r 500 mg tablet 2-0 3-18 00:00: 00 Yes 500mg Take 500 mg by mouth 2 (two) times daily. [facility] valACYclovi r 500 mg tablet 2021-0 3-18 00:00: 00 Yes 500mg Take 500 mg by mouth 2 (two) times daily. [facility] 2-0 3-18 00:00: 00 Yes 500mg Take 500 mg by mouth 2 (two) times daily. [facility] mg tablet 2-0 3-18 00:00: 00 Yes 500mg Take 500 mg by mouth 2 (two) times daily. [facility] mg tablet 2-0 3-18 00:00: 00 Yes 500mg Take 500 mg by mouth 2 (two) times daily. [facility] mg tablet 2-0 3-18 00:00: 00 Yes 500mg Take 500 mg by mouth 2 (two) times daily. [facility] mg tablet 2-0 3-18 00:00: 00 Yes 500mg Take 500 mg by mouth 2 (two) times daily. [facility] mg tablet 2-0 3-18 00:00: 00 Yes 500mg Take 500 mg by mouth 2 (two) times daily. [facility] mg tablet 2-0 3-18 00:00: 00 Yes 500mg Take 500 mg by mouth 2 (two) times daily. [facility] valACYclovi r 500 mg tablet 2-0 3-18 00:00: 00 Yes 500mg Take 500 mg by mouth 2 (two) times daily. [facility] VRAYLAR 1.5 mg Cap 2022-0 3-13 00:00: 00 Yes [facility] VRAYLAR 1.5 mg Cap 2022-0 3-13 00:00: 00 Yes [facility] VRAYLAR 1.5 mg Cap 2022-0 3-13 00:00: 00 Yes [facility] VRAYLAR 1.5 mg Cap 2022-0 3-13 00:00: 00 Yes [facility] VRAYLAR 1.5 mg Cap 2022-0 3-13 00:00: 00 Yes [facility] VRAYLAR 1.5 mg Cap 2-0 3-13 00:00: 00 Yes [facility] VRAYLAR 1.5 mg Cap 2-0 3-13 00:00: 00 Yes [facility] VRAYLAR 1.5 mg Cap 2-0 3-13 00:00: 00 Yes [facility] VRAYLAR 1.5 mg Cap 2-0 3-13 00:00: 00 Yes [facility] VRAYLAR 1.5 mg Cap 2-0 3-13 00:00: 00 Yes [facility] VRAYLAR 1.5 mg Cap 2-0 3-13 00:00: 00 Yes [facility] VRAYLAR 1.5 mg Cap 2-0 3-13 00:00: 00 Yes [facility] VRAYLAR 1.5 mg Cap 2-0 3-13 00:00: 00 10-18 00:00 :00 No [facility] VRAYLAR 1.5 mg Cap 2-0 3-13 00:00: 00 10-18 00:00 :00 No [facility] dapaglifloz in ([facility]) 10 mg tablet 2020-05 00:00: 00 08-23 00:00 :00 No [id number] 10mg Take 1 tablet by mouth daily. [facility] glimepiride 2 mg tablet 2020-05 00:00: 00 08-23 00:00 :00 No [id number] 2mg Take 1 tablet by mouth daily with breakfast. [facility] semaglutide (OZEMPIC) 1 mg/dose (4 mg/3 mL) PnIj 2020-05 00:00: 00 08-23 00:00 :00 No [id number] 1mg inject 1 mg under the skin weekly. [facility] dapaglifloz in ([facility]) 10 mg tablet 2020-05 00:00: 00 08-23 00:00 :00 No [id number] 10mg Take 1 tablet by mouth daily. [facility] glimepiride 2 mg tablet 2020-05 00:00: 00 08-23 00:00 :00 No [id number] 2mg Take 1 tablet by mouth daily with breakfast. [facility] semaglutide (OZEMPIC) 1 mg/dose (4 mg/3 mL) PnIj 2020-05 00:00: 00 08-23 00:00 :00 No [id number] 1mg inject 1 mg under the skin weekly. [facility] Lancets (ACCU-CHEK FASTCLIX LANCET DRUM) [facility] 2019-05 00:00: 00 Yes Use to check blood sugar 1X daily. DX:E11.65 [facility] blood sugar diagnostic (ACCU-CHEK GUIDE TEST STRIPS) strip 2019-05 00:00: 00 Yes Use to check blood sugar 1X daily. DX:E11.65 [facility] Blood-Gluco se Meter (ACCU-CHEK GUIDE GLUCOSE METER) [facility] 2019-05 00:00: 00 Yes Use to check blood sugar 1X daily. DX:E11.65 [facility] Lancets (ACCU-CHEK FASTCLIX LANCET DRUM) [facility] 2019-05 00:00: 00 Yes Use to check blood sugar 1X daily. DX:E11.65 [facility] blood sugar diagnostic (ACCU-CHEK GUIDE TEST STRIPS) strip 2019-05 00:00: 00 Yes Use to check blood sugar 1X daily. DX:E11.65 [facility] Blood-Gluco se Meter (ACCU-CHEK GUIDE GLUCOSE METER) [facility] 2019-05 00:00: 00 Yes Use to check blood sugar 1X daily. DX:E11.65 [facility] Lancets (ACCU-CHEK FASTCLIX LANCET DRUM) [facility] 2019-05 00:00: 00 Yes Use to check blood sugar 1X daily. DX:E11.65 [facility] blood sugar diagnostic (ACCU-CHEK GUIDE TEST STRIPS) strip 2019-05 00:00: 00 Yes Use to check blood sugar 1X daily. DX[facility]E11.65 [facility] (ACCU-CHEK GUIDE GLUCOSE METER) [facility] 2019-05 00:00: 00 Yes Use to check blood sugar 1X daily. DX:E11.65 [facility] Lancets (ACCU-CHEK FASTCLIX LANCET DRUM) [facility] 2019-05 00:00: 00 Yes Use to check blood sugar 1X daily. DX:E11.65 [facility] blood sugar diagnostic (ACCU-CHEK GUIDE TEST STRIPS) strip 2019-05 00:00: 00 Yes Use to check blood sugar 1X daily. DX:E11.65 [facility] Blood-Gluco se Meter (ACCU-CHEK GUIDE GLUCOSE METER) [facility] 2019-05 00:00: 00 Yes Use to check blood sugar 1X daily. DX:E11.65 [facility] Lancets (ACCU-CHEK FASTCLIX LANCET DRUM) [facility] 2019-05 00:00: 00 Yes Use to check blood sugar 1X daily. DX:E11.65 [facility] blood sugar diagnostic (ACCU-CHEK GUIDE TEST STRIPS) strip 2019-05 00:00: 00 Yes Use to check blood sugar 1X daily. DX:E11.65 [facility] Blood-Gluco se Meter (ACCU-CHEK GUIDE GLUCOSE METER) [facility] 2019-05 00:00: 00 Yes Use to check blood sugar 1X daily. DX:E11.65 [facility] Lancets (ACCU-CHEK FASTCLIX LANCET DRUM) [facility] 2019-05 00:00: 00 Yes Use to check blood sugar 1X daily. DX:E11.65 [facility] blood sugar diagnostic (ACCU-CHEK GUIDE TEST STRIPS) strip 2019-05 00:00: 00 Yes Use to check blood sugar 1X daily. DX:E11.65 [facility] Blood-Gluco se Meter (ACCU-CHEK GUIDE GLUCOSE METER) [facility] 2019-05 00:00: 00 Yes Use to check blood sugar 1X daily. DX:E11.65 [facility] Lancets (ACCU-CHEK FASTCLIX LANCET DRUM) [facility] 2019-05 00:00: 00 Yes Use to check blood sugar 1X daily. DX:E11.65 [facility] blood sugar diagnostic (ACCU-CHEK GUIDE TEST STRIPS) strip 2019-05 00:00: 00 Yes Use to check blood sugar 1X daily. DX:E11.65 [facility] Blood-Gluco se Meter (ACCU-CHEK GUIDE GLUCOSE METER) [facility] 2019-05 00:00: 00 Yes Use to check blood sugar 1X daily. DX:E11.65 [facility] Lancets (ACCU-CHEK FASTCLIX LANCET DRUM) [facility] 2019-05 00:00: 00 Yes Use to check blood sugar 1X daily. DX:E11.65 [facility] blood sugar diagnostic (ACCU-CHEK GUIDE TEST STRIPS) strip 2019-05 00:00: 00 Yes Use to check blood sugar 1X daily. DX:E11.65 [facility] Blood-Gluco se Meter (ACCU-CHEK GUIDE GLUCOSE METER) [facility] 2019-05 00:00: 00 Yes Use to check blood sugar 1X daily. DX:E11.65 [facility] Lancets (ACCU-CHEK FASTCLIX LANCET DRUM) [facility] 2019-05 00:00: 00 Yes Use to check blood sugar 1X daily. DX:E11.65 [facility] blood sugar diagnostic (ACCU-CHEK GUIDE TEST STRIPS) strip 2019-05 00:00: 00 Yes Use to check blood sugar 1X daily. DX:E11.65 [facility] Blood-Gluco se Meter (ACCU-CHEK GUIDE GLUCOSE METER) [facility] 2019-05 00:00: 00 Yes Use to check blood sugar 1X daily. DX:E11.65 [facility] Lancets (ACCU-CHEK FASTCLIX LANCET DRUM) [facility] 2019-05 00:00: 00 Yes Use to check blood sugar 1X daily. DX:E11.65 [facility] blood sugar diagnostic (ACCU-CHEK GUIDE TEST STRIPS) strip 2019-05 00:00: 00 Yes Use to check blood sugar 1X daily. DX:E11.65 [facility] (ACCU-CHEK GUIDE GLUCOSE METER) [facility] 2019-05 00:00: 00 Yes Use to check blood sugar 1X daily. DX:E11.65 [facility] Lancets (ACCU-CHEK FASTCLIX LANCET DRUM) [facility] 2019-05 00:00: 00 Yes Use to check blood sugar 1X daily. DX:E11.65 [facility] blood sugar diagnostic (ACCU-CHEK GUIDE TEST STRIPS) strip 2019-05 00:00: 00 Yes Use to check blood sugar 1X daily. DX:E11.65 [facility] Blood-Gluco se Meter (ACCU-CHEK GUIDE GLUCOSE METER) [facility] 2019-05 00:00: 00 Yes Use to check blood sugar 1X daily. DX:E11.65 [facility] Lancets (ACCU-CHEK FASTCLIX LANCET DRUM) [facility] 2019-05 00:00: 00 Yes Use to check blood sugar 1X daily. DX:E11.65 [facility] blood sugar diagnostic (ACCU-CHEK GUIDE TEST STRIPS) strip 2019-05 00:00: 00 Yes Use to check blood sugar 1X daily. DX:E11.65 [facility] Blood-Gluco se Meter (ACCU-CHEK GUIDE GLUCOSE METER) [facility] 2019-05 00:00: 00 Yes Use to check blood sugar 1X daily. DX:E11.65 [facility] Lancets (ACCU-CHEK FASTCLIX LANCET DRUM) [facility] 2019-05 00:00: 00 Yes Use to check blood sugar 1X daily. DX:E11.65 [facility] blood sugar diagnostic (ACCU-CHEK GUIDE TEST STRIPS) strip 2019-05 00:00: 00 Yes Use to check blood sugar 1X daily. DX:E11.65 [facility] Blood-Gluco se Meter (ACCU-CHEK GUIDE GLUCOSE METER) [facility] 2019-05 00:00: 00 Yes Use to check blood sugar 1X daily. DX:E11.65 [facility] Lancets (ACCU-CHEK FASTCLIX LANCET DRUM) [facility] 2019-05 00:00: 00 Yes Use to check blood sugar 1X daily. DX:E11.65 [facility] blood sugar diagnostic (ACCU-CHEK GUIDE TEST STRIPS) strip 2019-05 00:00: 00 Yes Use to check blood sugar 1X daily. DX:E11.65 [facility] Blood-Gluco se Meter (ACCU-CHEK GUIDE GLUCOSE METER) [facility] 2019-05 00:00: 00 Yes Use to check blood sugar 1X daily. DX:E11.65 [facility] Lancets (ACCU-CHEK FASTCLIX LANCET DRUM) [facility] 2019-05 00:00: 00 Yes Use to check blood sugar 1X daily. DX:E11.65 [facility] blood sugar diagnostic (ACCU-CHEK GUIDE TEST STRIPS) strip 2019-05 00:00: 00 Yes Use to check blood sugar 1X daily. DX:E11.65 [facility] Blood-Gluco se Meter (ACCU-CHEK GUIDE GLUCOSE METER) [facility] 2019-05 00:00: 00 Yes Use to check blood sugar 1X daily. DX:E11.65 [facility] Lancets (ACCU-CHEK FASTCLIX LANCET DRUM) [facility] 2019-05 00:00: 00 Yes Use to check blood sugar 1X daily. DX:E11.65 [facility] blood sugar diagnostic (ACCU-CHEK GUIDE TEST STRIPS) strip 2019-05 00:00: 00 Yes Use to check blood sugar 1X daily. DX:E11.65 [facility] Blood-Gluco se Meter (ACCU-CHEK GUIDE GLUCOSE METER) [facility] 2019-05 00:00: 00 Yes Use to check blood sugar 1X daily. DX:E11.65 [facility] Lancets (ACCU-CHEK FASTCLIX LANCET DRUM) [facility] 2019-05 00:00: 00 Yes Use to check blood sugar 1X daily. DX:E11.65 [facility] (ACCU-CHEK GUIDE TEST STRIPS) strip 2019-05 00:00: 00 Yes Use to check blood sugar 1X daily. DX:E11.65 [facility] Blood-Gluco se Meter (ACCU-CHEK GUIDE GLUCOSE METER) [facility] 2019-05 00:00: 00 Yes Use to check blood sugar 1X daily. DX:E11.65 [facility] Lanc[facility] (ACCU-CHEK FASTCLIX LANCET DRUM) [facility] 2019-05 00:00: 00 Yes Use to check blood sugar 1X daily. DX:E11.65 [facility] diagnostic (ACCU-CHEK GUIDE TEST STRIPS) strip 2019-05 00:00: 00 Yes Use to check blood sugar 1X daily. DX:E11.65 [facility] Blood-Gluco se Meter (ACCU-CHEK GUIDE GLUCOSE METER) [facility] 2019-05 00:00: 00 Yes Use to check blood sugar 1X daily. DX:E11.65 [facility] Lancets (ACCU-CHEK FASTCLIX LANCET DRUM) [facility] 2019-05 00:00: 00 Yes Use to check blood sugar 1X daily. DX:E11.65 [facility] blood sugar diagnostic (ACCU-CHEK GUIDE TEST STRIPS) strip 2019-05 00:00: 00 Yes Use to check blood sugar 1X daily. DX:E11.65 [facility] Blood-Gluco [facility] Meter (ACCU-CHEK GUIDE GLUCOSE METER) [facility] 2019-05 00:00: 00 Yes Use to check blood sugar 1X daily. DX:E11.65 [facility] Lancets (ACCU-CHEK FASTCLIX LANCET DRUM) [facility] 2019-05 00:00: 00 Yes Use to check blood sugar 1X daily. DX:E11.65 [facility] diagnostic (ACCU-CHEK GUIDE TEST STRIPS) strip 2019-05 00:00: 00 Yes Use to check blood sugar 1X daily. DX:E11.65 [facility] Blood-Gluco se Meter (ACCU-CHEK GUIDE GLUCOSE METER) [facility] 2019-05 00:00: 00 Yes Use to check blood sugar 1X daily. DX:E11.65 [facility] Lancets (ACCU-CHEK FASTCLIX LANCET DRUM) [facility] 2019-05 00:00: 00 Yes Use to check blood sugar 1X daily. DX:E11.65 [facility] blood sugar diagnostic (ACCU-CHEK GUIDE TEST STRIPS) strip 2019-05 00:00: 00 Yes Use to check blood sugar 1X daily. DX:E11.65 [facility] Blood-Gluco se Meter (ACCU-CHEK GUIDE GLUCOSE METER) [facility] 2019-05 00:00: 00 Yes Use to check blood sugar 1X daily. DX:E11.65 [facility] Lancets (ACCU-CHEK FASTCLIX LANCET DRUM) [facility] 2019-05 00:00: 00 Yes Use to check blood sugar 1X daily. DX:E11.65 [facility] blood sugar diagnostic (ACCU-CHEK GUIDE TEST STRIPS) strip 2019-05 00:00: 00 Yes Use to check blood sugar 1X daily. DX:E11.65 [facility] Blood-Gluco se Meter (ACCU-CHEK GUIDE GLUCOSE METER) [facility] 2019-05 00:00: 00 Yes Use to check blood sugar 1X daily. DX:E11.65 [facility] Lancets (ACCU-CHEK FASTCLIX LANCET DRUM) [facility] 2019-05 00:00: 00 Yes Use to check blood sugar 1X daily. DX:E11.65 [facility] blood sugar diagnostic (ACCU-CHEK GUIDE TEST STRIPS) strip 2019-05 00:00: 00 Yes Use to check blood sugar 1X daily. DX:E11.65 [facility] Blood-Gluco se Meter (ACCU-CHEK GUIDE GLUCOSE METER) [facility] 2019-05 00:00: 00 Yes Use to check blood sugar 1X daily. DX:E11.65 [facility] Lancets (ACCU-CHEK FASTCLIX LANCET DRUM) [facility] 2019-05 00:00: 00 Yes Use to check blood sugar 1X daily. DX:E11.65 [facility] blood sugar diagnostic (ACCU-CHEK GUIDE TEST STRIPS) strip 2019-05 00:00: 00 Yes Use to check blood sugar 1X daily. DX:E11.65 [facility] Blood-Gluco se Meter (ACCU-CHEK GUIDE GLUCOSE METER) [facility] 2019-05 00:00: 00 Yes Use to check blood sugar 1X daily. DX:E11.65 [facility] atorvastati n 40 mg tablet 2019-05 10:23: 31 Yes 40mg Take 40 mg by mouth at bedtime. [facility] atorvastati n 40 mg tablet 2019-05 10:23: 31 Yes 40mg Take 40 mg by mouth at bedtime. [facility] atorvastati n 40 mg tablet 2019-05 10:23: 31 Yes 40mg Take 40 mg by mouth at bedtime. [facility] atorvastati n 40 mg tablet 2019-05 10:23: 31 Yes 40mg Take 40 mg by mouth at bedtime. [facility] atorvastati n 40 mg tablet 2019-05 10:23: 31 Yes 40mg Take 40 mg by mouth at bedtime. [facility] atorvastati n 40 mg tablet 2019-05 10:23: 31 Yes 40mg Take 40 mg by mouth at bedtime. [facility] atorvastati n 40 mg tablet 2019-05 10:23: 31 Yes 40mg Take 40 mg by mouth at bedtime. [facility] atorvastati n 40 mg tablet 2019-05 10:23: 31 Yes 40mg Take 40 mg by mouth at bedtime. [facility] atorvastati n 40 mg tablet 2019-05 10:23: 31 Yes 40mg Take 40 mg by mouth at bedtime. [facility] atorvastati n 40 mg tablet 2019-05 10:23: 31 Yes 40mg Take 40 mg by mouth at bedtime. [facility] atorvastati n 40 mg tablet 2019-05 10:23: 31 Yes 40mg Take 40 mg by mouth at bedtime. [facility] atorvastati n 40 mg tablet 2019-05 10:23: 31 Yes 40mg Take 40 mg by mouth at bedtime. [facility] atorvastati n 40 mg tablet 2019-05 10:23: 31 Yes 40mg Take 40 mg by mouth at bedtime. [facility] ezetimibe 10 mg tablet 2019-05 10:23: 16 Yes 10mg Take 10 mg by mouth daily. [facility] ezetimibe 10 mg tablet 2019-05 10:23: 16 Yes 10mg Take 10 mg by mouth daily. [facility] ezetimibe 10 mg tablet 2019-05 10:23: 16 Yes 10mg Take 10 mg by mouth daily. [facility] ezetimibe 10 mg tablet 2019-05 10:23: 16 Yes 10mg Take 10 mg by mouth daily. [facility] ezetimibe 10 mg tablet 2019-05 10:23: 16 Yes 10mg Take 10 mg by mouth daily. [facility] ezetimibe 10 mg tablet 2019-05 10:23: 16 Yes 10mg Take 10 mg by mouth daily. [facility] ezetimibe 10 mg tablet 2019-05 10:23: 16 Yes 10mg Take 10 mg by mouth daily. [facility] ezetimibe 10 mg tablet 2019-05 10:23: 16 Yes 10mg Take 10 mg by mouth daily. [facility] ezetimibe 10 mg tablet 2019-05 10:23: 16 Yes 10mg Take 10 mg by mouth daily. [facility] ezetimibe 10 mg tablet 2019-05 10:23: 16 Yes 10mg Take 10 mg by mouth daily. [facility] ezetimibe 10 mg tablet 2019-05 10:23: 16 Yes 10mg Take 10 mg by mouth daily. [facility] ezetimibe 10 mg tablet 2019-1 05-16 10:23: 16 Yes 10mg Take 10 mg by mouth daily. [facility] ezetimibe 10 mg tablet 2019-1 - 10:23: 16 Yes 10mg Take 10 mg by mouth daily. [facility] 2020-0 2-17 13:16: 53 Yes Take by mouth. [facility] LISIN[facility]AL 2020-0 2-17 13:16: 53 Yes Take by mouth. [facility] LISINOPRIL ORAL 2020-0 2-17 13:16: 53 Yes Take by mouth. [facility] LISINOPRIL ORAL 2020-0 2-17 13:16: 53 Yes Take by mouth. [facility] LISINOPRIL ORAL 2020-0 2-17 13:16: 53 Yes Take by mouth. [facility] LISINOPRIL ORAL 2020-0 2-17 13:16: 53 Yes Take by mouth. [facility] LIS[facility]AL 2020-0 2-17 13:16: 53 Yes Take by mouth. [facility] LISINOPRIL ORAL 2020-0 2-17 13:16: 53 Yes Take by mouth. [facility] LISINOPRIL ORAL 2020-0 2-17 13:16: 53 Yes Take by mouth. [facility] LISINOPRIL ORAL 2020-0 2-17 13:16: 53 Yes Take by mouth. [facility] LISINOPRIL ORAL 2020-0 2-17 13:16: 53 Yes Take by mouth. [facility] LISINOPRIL ORAL 2020-0 2-17 13:16: 53 Yes Take by mouth. [facility] LISINOPRIL ORAL 2020-0 2-17 13:16: 53 Yes Take by mouth. [facility] omeprazole 40 mg capsule 2020-0 2-06 00:00: 00 Yes TK 1 C PO D [facility] capsule 2020-0 2-06 00:00: 00 Yes TK 1 C PO D [facility] omeprazole 40 mg capsule 2020-0 2-06 00:00: 00 Yes TK 1 C PO D [facility] omeprazole 40 mg capsule 2020-0 2-06 00:00: 00 Yes TK 1 C PO D [facility] omeprazole 40 mg capsule 2020-0 2-06 00:00: 00 Yes TK 1 C PO D [facility] omeprazole 40 mg capsule 2020-0 2-06 00:00: 00 Yes TK 1 C PO D [facility] omeprazole 40 mg capsule 2020-0 2-06 00:00: 00 Yes TK 1 C PO D [facility] omeprazole 40 mg capsule 2020-0 2-06 00:00: 00 Yes TK 1 C PO D [facility] omeprazole 40 mg capsule 2020-0 2-06 00:00: 00 Yes TK 1 C PO D [facility] omeprazole 40 mg capsule 2020-0 2-06 00:00: 00 Yes TK 1 C PO D [facility] omeprazole 40 mg capsule 2020-0 2-06 00:00: 00 Yes TK 1 C PO D [facility] omeprazole 40 mg capsule 2020-0 2-06 00:00: 00 Yes TK 1 C PO D [facility] omeprazole 40 mg capsule 2020-0 2-06 00:00: 00 Yes TK 1 C PO D [facility] omeprazole 40 mg capsule 2020-0 2-06 00:00: 00 - 00:00 :00 No TK 1 C PO D [facility] omeprazole 40 mg capsule 2020-0 2-06 00:00: 00 - 00:00 :00 No TK 1 C PO D [facility] haloperidol 5 mg tablet 2020-0 1-30 00:00: 00 Yes [facility] haloperidol 5 mg tablet 2020-0 1-30 00:00: 00 Yes [facility] haloperidol 5 mg tablet 2020-0 1-30 00:00: 00 Yes [facility] haloperidol 5 mg tablet 2020-0 1-30 00:00: 00 Yes [facility] haloperidol 5 mg tablet 2020-0 1-30 00:00: 00 Yes [facility] haloperidol 5 mg tablet 2020-0 30 00:00: 00 Yes [facility] haloperidol 5 mg tablet 2020-0 06-13 00:00: 00 Yes [facility] haloperidol 5 mg tablet 2020-0 06-13 00:00: 00 Yes [facility] haloperidol 5 mg tablet 2020-0 06-13 00:00: 00 Yes [facility] haloperidol 5 mg tablet 2020-0 06-13 00:00: 00 Yes [facility] haloperidol 5 mg tablet 2019-0 06-13 00:00: 00 Yes [facility] haloperidol 5 mg tablet 2019-0 06-13 00:00: 00 Yes [facility] haloperidol 5 mg tablet 2019-0 06-13 00:00: 00 Yes [facility] haloperidol 5 mg tablet 2019-0 06-13 00:00: 00 10-18 00:00 :00 No [facility] haloperidol 5 mg tablet 2019-0 06-13 00:00: 00 10-18 00:00 :00 No [facility] ABILIFY 15 mg tablet 2019-0 06-12 00:00: 00 Yes TK 1 T PO D [facility] benztropine 0.5 mg tablet 2019-0 06-12 00:00: 00 Yes [facility] ABILIFY 15 mg tablet 2020-0 06-12 00:00: 00 Yes TK 1 T PO D [facility] benztropine 0.5 mg tablet 2019-0 06-12 00:00: 00 Yes [facility] ABILIFY 15 mg tablet 2020-0 06-12 00:00: 00 Yes TK 1 T PO D [facility] benztropine 0.5 mg tablet 2020-0 06-12 00:00: 00 Yes [facility] ABILIFY 15 mg tablet 2020-0 06-12 00:00: 00 Yes TK 1 T PO D [facility] benztropine 0.5 mg tablet 2020-0 06-12 00:00: 00 Yes [facility] ABILIFY 15 mg tablet 2020-0 29 00:00: 00 Yes TK 1 T PO D [facility] benztropine 0.5 mg tablet 2020-0 06-12 00:00: 00 Yes [facility] ABILIFY 15 mg tablet 2020-0 06-12 00:00: 00 Yes TK 1 T PO D [facility] benztropine 0.5 mg tablet 2020-0 06-12 00:00: 00 Yes [facility] ABILIFY 15 mg tablet 2020-0 06-12 00:00: 00 Yes TK 1 T PO D [facility] benztropine 0.5 mg tablet 2020-0 06-12 00:00: 00 Yes [facility] benztropine 0.5 mg tablet 2020-0 06-12 00:00: 00 Yes [facility] benztropine 0.5 mg tablet 2020-0 06-12 00:00: 00 Yes [facility] benztropine 0.5 mg tablet 2020-0 06-12 00:00: 00 Yes [facility] benztropine 0.5 mg tablet 2020-0 29 00:00: 00 Yes [facility] benztropine 0.5 mg tablet 2020-0 06-12 00:00: 00 Yes [facility] benztropine 0.5 mg tablet 2020-0 29 00:00: 00 Yes [facility] benztropine 0.5 mg tablet 2020-0 29 00:00: 00 Yes [facility] benztropine 0.5 mg tablet 2020-0 29 00:00: 00 Yes [facility] benztropine 0.5 mg tablet 2020-0 29 00:00: 00 Yes [facility] benztropine 0.5 mg tablet 2020-0 29 00:00: 00 Yes [facility] benztropine 0.5 mg tablet 2020-0 29 00:00: 00 Yes [facility] ABILIFY 15 mg tablet 2020-0 06-12 00:00: 00 Yes TK 1 T PO D [facility] benztropine 0.5 mg tablet 2019-0 06-12 00:00: 00 Yes [facility] ABILIFY 15 mg tablet 2019-0 06-12 00:00: 00 Yes TK 1 T PO D [facility] benztropine 0.5 mg tablet 2019-0 06-12 00:00: 00 Yes [facility] ABILIFY 15 mg tablet 2019-0 06-12 00:00: 00 Yes TK 1 T PO D [facility] benztropine 0.5 mg tablet 2019-0 06-12 00:00: 00 Yes [facility] ABILIFY 15 mg tablet 2019-0 06-12 00:00: 00 Yes TK 1 T PO D [facility] benztropine 0.5 mg tablet 0 06-12 00:00: 00 Yes [facility] ABILIFY 15 mg tablet 2019-0 06-12 00:00: 00 Yes TK 1 T PO D [facility] benztropine 0.5 mg tablet 2019-0 06-12 00:00: 00 Yes [facility] ABILIFY 15 mg tablet 2019-0 06-12 00:00: 00 Yes TK 1 T PO D [facility] benztropine 0.5 mg tablet 0 06-12 00:00: 00 Yes [facility] ABILIFY 15 mg tablet 2019-0 06-12 00:00: 00 10-18 00:00 :00 No TK 1 T PO D [facility] ABILIFY 15 mg tablet 2019-0 06-12 00:00: 00 10-18 00:00 :00 No TK 1 T PO D [facility] hydrOXYzine 25 mg tablet 2018-05 00:00: 00 Yes TK 1 T PO BID [facility] hydrOXYzine 25 mg tablet 2018-05 00:00: 00 Yes TK 1 T PO BID [facility] hydrOXYzine 25 mg tablet 2018-05 00:00: 00 Yes TK 1 T PO BID [facility] hydrOXYzine 25 mg tablet 2018-05 00:00: 00 Yes TK 1 T PO BID [facility] hydrOXYzine 25 mg tablet 2018-05 00:00: 00 Yes TK 1 T PO BID [facility] hydrOXYzine 25 mg tablet 2018-05 00:00: 00 Yes TK 1 T PO BID [facility] hydrOXYzine 25 mg tablet 2018-05 00:00: 00 Yes TK 1 T PO BID [facility] hydrOXYzine 25 mg tablet 2018-05 00:00: 00 Yes TK 1 T PO BID [facility] hydrOXYzine 25 mg tablet 2018-05 00:00: 00 Yes TK 1 T PO BID [facility] hydrOXYzine 25 mg tablet 2018-05 00:00: 00 Yes TK 1 T PO BID [facility] hydrOXYzine 25 mg tablet 2018-05 00:00: 00 Yes TK 1 T PO BID [facility] hydrOXYzine 25 mg tablet 2018-05 00:00: 00 Yes TK 1 T PO BID [facility] hydrOXYzine 25 mg tablet 2018-05 00:00: 00 Yes TK 1 T PO BID [facility] hydrOXYzine 25 mg tablet 2018-05 00:00: 00 10-18 00:00 :00 No TK 1 T PO BID [facility] hydrOXYzine 25 mg tablet 2018-05 00:00: 00 10-18 00:00 :00 No TK 1 T PO BID [facility] Ketoprofen 200 mg C24P 2018-05 00:00: 00 Yes TK 1 C PO ONCE D PRN [facility] Ketoprofen 200 mg C24P 2018-05 00:00: 00 Yes TK 1 C PO ONCE D PRN [facility] Ketoprofen 200 mg C24P 2018-05 00:00: 00 Yes TK 1 C PO ONCE D PRN [facility] Ketoprofen 200 mg C24P 2019- 2 00:00: 00 Yes TK 1 C PO ONCE D PRN [facility] Ketoprofen 200 mg C24P 2019-1 2 00:00: 00 Yes TK 1 C PO ONCE D PRN [facility] Ketoprofen 200 mg C24P 2019- 2 00:00: 00 Yes TK 1 C PO ONCE D PRN [facility] Ketoprofen 200 mg C24P 2019- 2 00:00: 00 Yes TK 1 C PO ONCE D PRN [facility] Ketoprofen 200 mg C24P 2019-07-08 00:00: 00 Yes TK 1 C PO ONCE D PRN [facility] Ketoprofen 200 mg C24P 2019-07-08 00:00: 00 Yes TK 1 C PO ONCE D PRN [facility] Ketoprofen 200 mg C24P 2019- 2 00:00: 00 Yes TK 1 C PO ONCE D PRN [facility] Ketoprofen 200 mg C24P 2019-07-08 00:00: 00 Yes TK 1 C PO ONCE D PRN [facility] Ketoprofen 200 mg C24P 2019-07-08 00:00: 00 Yes TK 1 C PO ONCE D PRN [facility] Ketoprofen 200 mg C24P 2018-07-08 00:00: 00 Yes TK 1 C PO ONCE D PRN [facility] Ketoprofen 200 mg C24P 2019- 2 00:00: 00 Yes TK 1 C PO ONCE D PRN [facility] Ketoprofen 200 mg C24P 2019-1 2 00:00: 00 Yes TK 1 C PO ONCE D PRN [facility] Ketoprofen 200 mg C24P 2019-1 2 00:00: 00 Yes TK 1 C PO ONCE D PRN [facility] Ketoprofen 200 mg C24P 2019-1 2 00:00: 00 Yes TK 1 C PO ONCE D PRN [facility] Ketoprofen 200 mg C24P 2019- 2 00:00: 00 Yes TK 1 C PO ONCE D PRN [facility] Ketoprofen 200 mg C24P 2018-05 00:00: 00 Yes TK 1 C PO ONCE D PRN [facility] Ketoprofen 200 mg C24P 2018-05 00:00: 00 Yes TK 1 C PO ONCE D PRN [facility] Ketoprofen 200 mg C24P 2018-05 00:00: 00 Yes TK 1 C PO ONCE D PRN [facility] Ketoprofen 200 mg C24P 2018-05 00:00: 00 Yes TK 1 C PO ONCE D PRN [facility] Ketoprofen 200 mg C24P 2018-05 00:00: 00 Yes TK 1 C PO ONCE D PRN [facility] Ketoprofen 200 mg C24P 2018-05 00:00: 00 Yes TK 1 C PO ONCE D PRN [facility] Immunizations Ordered Immunization Name Filled Immunization Name Date Status Comments Source Influenza Virus Vaccine 2020-01-18 00:00:00 Completed [facility] Influenza Virus Vaccine 2020-01-18 00:00:00 Completed [facility] Influenza Virus Vaccine 2020-01-18 00:00:00 Completed [facility] Influenza Virus Vaccine 2020-01-18 00:00:00 Completed [facility] Influenza Virus Vaccine 2020-01-18 00:00:00 Completed [facility] Influenza Virus Vaccine 2020-01-18 00:00:00 Completed [facility] Influenza Virus Vaccine 2020-01-18 00:00:00 Completed [facility] Influenza Virus Vaccine 2020-01-18 00:00:00 Completed [facility] Influenza Virus Vaccine 2020-01-18 00:00:00 Completed [facility] Influenza Virus Vaccine 2020-01-18 00:00:00 Completed [facility] Influenza Virus Vaccine 2020-01-18 00:00:00 Completed [facility] Influenza Virus Vaccine 2020-01-18 00:00:00 Completed [facility] Influenza Virus Vaccine 2020-01-18 00:00:00 Completed [facility] Influenza Virus Vaccine 2020-01-18 00:00:00 Completed [facility] Influenza Virus Vaccine 2020-01-18 00:00:00 Completed [facility] Influenza Virus Vaccine 2020-01-18 00:00:00 Completed [facility] Influenza Virus Vaccine Unknown Completed [facility] Influenza Virus Vaccine Unknown Completed [facility] Influenza Virus Vaccine Unknown Completed [facility] Influenza Virus Vaccine Unknown Completed [facility] Influenza Virus Vaccine Unknown Completed [facility] Influenza Virus Vaccine Unknown Completed [facility] Influenza Virus Vaccine Unknown Completed [facility] Influenza Virus Vaccine Unknown Completed [facility] Vital Signs Vital Name Observation Time Observation Value Comments S ource Heart rate 2023-04-28 17:35:00 94 /min [facility] Body height 2023-04-28 17:35:00 172.7 cm [facility] Body weight 2023-04-28 17:35:00 136.261 kg [facility] BMI 2023-04-28 17:35:00 45.68 kg/m2 [facility] Oxygen saturation in Arterial blood by Pulse oximetry 2023-04-28 17:35:00 94 /min [facility] Systolic blood pressure 2022-10-18 18:09:00 123 mm[Hg] [facility] Diastolic blood pressure 2022-10-18 18:09:00 94 mm[Hg] [facility] Heart rate 2022-10-18 18:09:00 98 /min [facility] Body height 2022-10-18 18:09:00 172.7 cm [facility] Body weight 2022-10-18 18:09:00 135.353 kg [facility] BMI 2022-10-18 18:09:00 45.37 kg/m2 [facility] Systolic blood pressure 2022-02-22 17:29:00 128 mm[Hg] [facility] Diastolic blood pressure 2022-02-22 17:29:00 89 mm[Hg] [facility] Heart rate 2022-02-22 17:29:00 105 /min [facility] Body height 2022-02-22 17:29:00 172.7 cm [facility] Body weight 2022-02-22 17:29:00 133.811 kg [facility] BMI 2022-02-22 17:29:00 44.85 kg/m2 [facility] Oxygen saturation in Arterial blood by Pulse oximetry 2022-02-22 17:29:00 94 /min [facility] Heart rate 2021-08-23 18:15:00 112 /min [facility] Body height 2021-08-23 18:15:00 172.7 cm [facility] Body weight 2021-08-23 18:15:00 134.718 kg [facility] BMI 2021-08-23 18:15:00 45.16 kg/m2 [facility] Oxygen saturation in Arterial blood by Pulse oximetry 2021-08-23 18:15:00 91 /min [facility] Procedures Procedure Date / Time Performed Performing Clinicia n Source POCT HEMOGLOBIN A1C TEST 2023-04-28 17:37:00 Suzanna Calvillo [facility] ASSIGNMENT OF BENEFITS 2023-04-28 17:03:13 Docto r Unassigned, Willard [facility] POCT HEMOGLOBIN A1C TEST 2022-10-18 18:12:00 Suzanna Calvillo [facility] POCT HEMOGLOBIN A1C TEST 2022-02-22 17:33:00 Janna Hernandes [facility] ASSIGNMENT OF BENEFITS 2022-02-22 17:18:51 Docto r Unassigned, Willard [facility] POCT HEMOGLOBIN A1C TEST 2021-08-23 18:20:00 Inge Caba [facility] Encounters Start Date/Time End Date/Time Encounter Type Admission Type Attending Clinicians Care Facility Care Department Encounter ID Source 2023-08-25 13:00:00 2023-08-25 13:00:00 Outpatient R SUZANNA CALVILLO [facility] [id number] [facility] 2023-07-18 00:00:00 2023-07-18 00:00:00 Telephone Suzanna Calvillo [facility] [id number] 350.1.13.10 4.2.7.2.686 [id number] 220 [id number] [facility] 2023-07-05 00:00:00 2023-07-05 00:00:00 [facility]ill [facility] [id number] 350.1.13.10 4.2.7.2.686 [id number] [facility] 2023-06-21 00:00:00 2023-06-21 00:00:00 [facility] [id number] 350.1.13.10 4.2.7.2.686 [id number] [facility] 2023-06-19 00:00:00 2023-06-19 00:00:00 [facility] [id number] 350.1.13.10 4.2.7.2.686 [id number] [facility] 2023-05-22 00:00:00 2023-05-22 00:00:00 [facility]phone [facility] [id number] 350.1.13.10 4.2.7.2.686 [id number] [facility] 2023-04-28 11:30:00 2023-04-28 14:07:35 Outpatient R SUZANNA CALVILLO [facility] [id number] [facility] 2023-04-28 11:30:00 2023-04-28 14:07:35 Office Visit [facility] [id number] 350.1.13.10 4.2.7.2.686 [id number] [facility] 2023-04-28 00:00:00 2023-04-28 00:00:00 Orders Only Doctor Unassigned, Willard [facility] 1.840.114 350.1.13.10 4.2.7.2.686 [id number] [facility] 2023-03-12 00:00:00 2023-03-12 00:00:00 Outpatient GC_[id number] diyala_S PRIV PRIV [id number] [facility] 2023-01-31 15:30:00 2023-01-31 15:30:00 Outpatient R GOODSUZANNA DUNCAN [facility] [id number] [facility] 2023-01-24 13:00:00 2023-01-24 13:00:00 Outpatient R GOODDAKOTA [facility] [id number] [facility] 2022-10-24 00:00:00 2022-10-24 00:00:00 Refill [facility] 1.840.114 350.1.13.10 4.2.7.2.686 [id number] [facility] 2022-10-18 13:00:00 2022-10-18 13:47:23 Outpatient R GOODDAKOTA [facility] [id number] [facility] 2022-10-18 13:00:00 2022-10-18 13:47:23 Office Visit Karli [facility]?TOSHIAVicki [facility] 1.840.114 350.1.13.10 4.2.7.2.686 [id number] [facility] 2022-10-06 00:00:00 2022-10-06 00:00:00 [facility] 1.840.114 350.1.13.10 4.2.7.2.686 [id number] [facility] 2022-08-09 14:00:00 2022-08-09 14:00:00 Outpatient R [facility] [id number] [facility] 2022-08-08 00:00:00 2022-08-08 00:00:00 Refill [facility] 1.840.114 350.1.13.10 4.2.7.2.686 [id number] [facility] 2022-03-17 00:00:00 2022-03-17 00:00:00 Telephone Team, [facility] 1..114 350.1.13.10 4.2.7.2.686 [id number] [facility] 2022-02-22 13:00:00 2022-02-22 13:43:27 Outpatient R [facility] [id number] [facility] 2022-02-22 13:00:00 2022-02-22 13:43:27 Office Visit [facility] [id number] 350.1.13.10 4.2.7.2.686 [id number] [facility] 2022-02-22 00:00:00 2022-02-22 00:00:00 Orders Only Doctor Unassigned, Willard [facility] 1.20.114 350.1.13.10 4.2.7.2.686 [id number] [facility] 2022-02-22 00:00:00 2022-02-22 00:00:00 [facility] 1.2840.114 350.1.13.10 4.2.7.2.686 [id number] [facility] 2021-11-30 16:00:00 2021-11-30 16:00:00 Outpatient R JANNA HERNANDES [facility] [id number] [facility] 2021-11-23 00:00:00 2021-11-23 00:00:00 Telephone Rosales [facility] 1.2840.114 350.1.13.10 4.2.7.2.686 [id number] [facility] 2021-08-26 00:00:00 2021-08-26 00:00:00 Telephone Rosales [facility] 1.2840.114 350.1.13.10 4.2.7.2.686 [id number] [facility] 2021-08-24 00:00:00 2021-08-24 00:00:00 Telephone Rosales [facility] 1.2840.114 350.1.13.10 4.2.7.2.686 [id number] [facility] 2021-08-23 13:30:00 2021-08-23 14:04:25 Outpatient R ROSALES NEMOURS [facility] [id number] [facility] 2021-08-23 13:30:00 2021-08-23 14:04:25 Office Visit Rosales [facility] B[facility] 1.2840.114 350.1.13.10 4.2.7.2.686 [id number] 220 [id number] [facility] 2021-08-20 00:00:00 2021-08-20 00:00:00 [facility] 1.2840.114 350.1.13.10 4.2.7.2.686 [id number] 220 [id number] [facility] 2021-08-02 11:30:00 2021-08-02 11:30:00 [facility] [id number] [facility] 2021-08-02 11:30:00 2021-08-02 11:30:00 Outpatient R ROSALES [facility] [id number] [facility] 2021-08-02 00:00:00 2021-08-02 00:00:00 [facility] 1..840.114 350.1.13.10 4.2.7.2.686 [id number] 220 [id number] [facility] 2021-07-07 00:00:00 2021-07-07 00:00:00 Orders Only Doctor Unassigned, Willard [facility] 1..840.114 350.1.13.10 4.2.7.2.686 [id number] 009 [id number] [facility] 2021-05-25 00:00:00 2021-05-25 00:00:00 [facility] 1..840.114 350.1.13.10 4.2.7.2.686 [id number] 220 [id number] [facility] 2021-04-21 00:00:00 2021-04-21 00:00:00 [facility] 1..840.114 350.1.13.10 4.2.7.2.686 [id number] 220 [id number] [facility] 2021-03-30 08:45:00 2021-03-30 15:54:44 Outpatient R ROSALES [facility] [id number] [facility] 2021-03-30 08:45:00 2021-03-30 08:45:00 Outpatient R INGE CABA [facility] [id number] [facility] 2021-03-29 13:30:00 2021-03-29 13:30:00 Outpatient R INGE CABA [facility] [id number] [facility] 2021-03-29 11:45:47 2021-03-29 12:15:47 Office Visit [facility] 1.2.840.114 350.1.13.10 4.2.7.2.686 [id number] 220 [id number] [facility] 2021-03-29 11:30:00 2021-03-29 11:30:00 [facility] [id number] [facility] 2021-03-29 00:00:00 2021-03-29 00:00:00 Telephone Rosales [facility] 1.2.840.114 350.1.13.10 4.2.7.2.686 [id number] 220 [id number] [facility] 2021-03-14 00:00:00 2021-03-14 00:00:00 Refill Rosales [facility] BUILDING 1.2.840.114 350.1.13.10 4.2.7.2.686 [id number] 220 [id number] [facility] 2021-02-22 10:30:00 2021-02-22 10:30:00 [facility] [id number] [facility] 2021-01-25 13:00:00 2021-01-25 13:00:00 Outpatient R ROSALES [facility] [id number] [facility] 2021-01-22 00:00:00 2021-01-22 00:00:00 Telephone Inge Caba [facility] 1.2.840.114 350.1.13.10 4.2.7.2.686 [id number] 220 [id number] [facility] 2020-10-05 13:45:00 2020-10-05 13:45:00 Outpatient R ROSALES [facility] [id number] [facility] 2020-10-05 13:45:00 2020-10-05 13:45:00 Outpatient R ROSALES [facility] [id number] [facility] 2020-09-14 11:00:00 2020-09-14 11:00:00 Outpatient R ROSALES [facility] [id number] [facility] 2020-09-14 09:57:24 2020-09-14 10:54:01 Office Visit Rosales [facility] 1..840.114 350.1.13.10 4.2.7.2.686 [id number] 220 [id number] [facility] 2020-09-14 10:00:00 2020-09-14 10:00:00 Outpatient R ROSALES [facility] [id number] [facility] 2020-09-11 00:00:00 2020-09-11 00:00:00 Orders Only Doctor Unassigned, Willard [facility] 1..840.114 350.1.13.10 4.2.7.2.686 [id number] 009 [id number] [facility] 2020-09-08 00:00:00 2020-09-08 00:00:00 Telephone Rosales [facility] 1.2.840.114 350.1.13.10 4.2.7.2.686 [id number] 220 [id number] [facility] 2020-09-08 00:00:00 2020-09-08 00:00:00 Telephone Inge Caba [facility] 1.2.840.114 350.1.13.10 4.2.7.2.686 [id number] 220 [id number] [facility] 2020-07-15 00:00:00 2020-07-15 00:00:00 [facility] 1.2.840.114 350.1.13.10 4.2.7.2.686 [id number] 220 [id number] [facility] 2020-05-27 00:00:00 2020-05-27 00:00:00 [facility] 1.2.840.114 350.1.13.10 4.2.7.2.686 [id number] 220 [id number] [facility] 2020-04-16 00:00:00 2020-04-16 00:00:00 Refill Rosales [facility] 1.2.840.114 350.1.13.10 4.2.7.2.686 [id number] 220 [id number] 2020-04-16 00:00:00 2020-04-16 00:00:00 [facility] 1.2.840.114 350.1.13.10 4.2.7.2.686 [id number] 220 [id number] [facility] 2020-04-03 12:00:00 2020-04-03 12:00:00 Outpatient BJ BURCIAGA [facility] [id number] [facility] 2020-03-26 00:00:00 2020-03-26 00:00:00 Orders Only Doctor Unassigned, Willard [facility] 1.2.840.114 350.1.13.10 4.2.7.2.686 [id number] 009 [id number] 2020-03-26 00:00:00 2020-03-26 00:00:00 Orders Only Doctor Unassigned, Willard [facility] 1.2.840.114 350.1.13.10 4.2.7.2.686 [id number] 009 [id number] [facility] 2020-03-16 09:57:45 2020-03-16 10:33:41 Office Visit Rosales [facility] 1.2.840.114 350.1.13.10 4.2.7.2.686 [id number] 220 [id number] 2020-03-16 09:57:45 2020-03-16 10:33:41 Office Visit Rosales [facility] 1.2.840.114 350.1.13.10 4.2.7.2.686 [id number] 220 [id number] [facility] 2020-03-16 10:00:00 2020-03-16 10:00:00 Outpatient R ROSALES [facility] [id number] [facility] 2020-03-16 00:00:00 2020-03-16 00:00:00 Orders Only Doctor Unassigned, Willard [facility] 1.2.840.114 350.1.13.10 4.2.7.2.686 [id number] 009 [id number] 2020-03-16 00:00:00 2020-03-16 00:00:00 Letter (Out) Doctor Unassigned, Willard [facility] 1.2.840.114 350.1.13.10 4.2.7.2.686 [id number] [id number] [facility] 2020-03-16 00:00:00 2020-03-16 00:00:00 Orders Only Doctor Unassigned, Willard [facility] 1.2.840.114 350.1.13.10 4.2.7.2.686 [id number] 009 [id number] [facility] 2020-02-17 11:00:00 2020-02-17 11:00:00 Outpatient R INGE CABA [facility] [id number] [facility] 2020-02-07 00:00:00 2020-02-07 00:00:00 Telephone Inge Caba [facility] Professio nal Building 1.2.840.114 350.1.13.10 4.2.7.2.686 [id number] 220 [id number] [facility] 2020-01-24 00:00:00 2020-01-24 00:00:00 [facility] 1.2.840.114 350.1.13.10 4.2.7.2.686 [id number] 220 [id number] [facility] 2020-01-24 00:00:00 2020-01-24 00:00:00 Telephone Inge Caba [facility] 1.2.840.114 350.1.13.10 4.2.7.2.686 [id number] 220 [id number] [facility] 2020-01-01 00:00:00 2020-01-01 00:00:00 Telephone Rosales Inge [facility] Professio nal Building 1.2.840.114 350.1.13.10 4.2.7.2.686 [id number] 220 [id number] [facility] 2019-12-08 00:00:00 2019-12-08 00:00:00 Telephone Inge Caba [facility] 1.2.840.114 350.1.13.10 4.2.7.2.686 [id number] 220 [id number] [facility] 2019-12-06 00:00:00 2019-12-06 00:00:00 Telephone Bj Blackwell [facility] Professio nal Building 1.2840.114 350.1.13.10 4.2.7.2.686 [id number] 220 [id number] [facility] 2019-10-16 00:00:00 2019-10-16 00:00:00 Orders Only Doctor Unassigned, Willard [facility] 1.2.840.114 350.1.13.10 4.2.7.2.686 [id number] [id number] [facility] 2019-10-08 00:00:00 2019-10-08 00:00:[facility] 1.2840.114 350.1.13.10 4.2.7.2.686 [id number] 220 [id number] [facility] 2019-09-30 11:30:00 2019-09-30 11:30:00 Outpatient R ROSALES [facility] [id number] [facility] 2019-09-30 08:04:06 2019-09-30 08:34:06 Telemedici ne Visit Douglasmaximo [facility] 1.2840.114 350.1.13.10 4.2.7.2.686 [id number] 220 [id number] [facility] 2019-08-28 00:00:00 2019-08-28 00:00:00 Orders Only Doctor Unassigned, Willard [facility] 1.2840.114 350.1.13.10 4.2.7.2.686 [id number] 009 [id number] [facility] 2019-08-22 00:00:00 2019-08-22 00:00:00 Telephone Douglaschemokhadijah [facility] 1.2840.114 350.1.13.10 4.2.7.2.686 [id number] 220 [id number] [facility] 2019-08-22 00:00:00 2019-08-22 00:00:00 Telephone Inge Caba [facility] Building 1.2.840.114 350.1.13.10 4.2.7.2.686 [id number] 220 [id number] [facility] 2019-08-02 00:00:00 2019-08-02 00:00:00 Orders Only Doctor Unassigned, Willard [facility] 1.2.840.114 350.1.13.10 4.2.7.2.686 [id number] 009 [id number] [facility] 2019-07-31 00:00:00 2019-07-31 00:00:00 Telephone Inge Caba [facility] Building 1.2.840.114 350.1.13.10 4.2.7.2.686 [id number] 220 [id number] [facility] 2019-07-31 00:00:00 2019-07-31 00:00:00 Telephone Inge Caba [facility] Building 1.2.840.114 350.1.13.10 4.2.7.2.686 [id number] 220 [id number] [facility] 2019-07-15 00:00:00 2019-07-15 00:00:00 Telephone Inge Caba [facility] Building 1.2.840.114 350.1.13.10 4.2.7.2.686 [id number] 220 [id number] [facility] 2019-07-14 00:00:00 2019-07-14 00:00:00 Orders Only Doctor Unassigned, Willard [facility] 1.2.840.114 350.1.13.10 4.2.7.2.686 [id number] 009 [id number] [facility] 2019-07-10 00:00:00 2019-07-10 00:00:00 [facility] 1.2.840.114 350.1.13.10 4.2.7.2.686 [id number] 220 [id number] [facility] 2019-07-08 00:00:00 2019-07-08 00:00:00 Telephone Inge Caba [facility] essio nal Building 1.2.840.114 350.1.13.10 4.2.7.2.686 [id number] 220 [id number] [facility] 2019-07-01 12:57:27 2019-07-01 17:00:06 Office Visit Inge Caba [facility] Maggiio nal Building 1.2.840.114 350.1.13.10 4.2.7.2.686 [id number] 220 [id number] [facility] Results Test Description Test Time Test Comments Results Result Co mments Source [facility] Hemoglobin A1C [id number] 17:37:00* Test Item Value Reference Range Interpretation Comme nts POCT HBA1C (test code = 4548-4) 9.6 % 4-6 A Lab Interpretation (test cod e = 22324-3) Abnormal [facility] HEMOGLOBIN A1C [id number] 18:12:00* Test Item Value Reference Range Interpretation Comme nts POCT HBA1C (test code = 4548-4) 8.0 % 4-6 A Lab Interpretation (test cod e = 05467-7) Abnormal [facility] HEMOGLOBIN A1C [id number] 18:12:00* Test Item Value Reference Range Interpretation Comme nts POCT HBA1C (test code = 4548-4) 8.0 % 4-6 A Lab Interpretation (test cod e = 55967-7) Abnormal [facility] HEMOGLOBIN A1C [id number] 17:33:00* Test Item Value Reference Range Interpretation Comme nts POCT HBA1C (test code = 4548-4) 7.9 % 4-6 A Lab Interpretation (test cod e = 89546-9) Abnormal [facility] HEMOGLOBIN A1C [id number] 17:33:00* Test Item Value Reference Range Interpretation Comme nts POCT HBA1C (test code = 4548-4) 7.9 % 4-6 A Lab Interpretation (test cod e = 20955-1) Abnormal [facility] HEMOGLOBIN A1C [id number] 18:20:00* Test Item Value Reference Range Interpretation Comme [facility] POCT HBA1C (test code = 4548-4) 8.3 % 4-6 A Lab Interpretation (test cod e = 03605-3) Abnormal [facility] HEMOGLOBIN A1C [id number] 18:20:00* Test Item Value Reference Range Interpretation Comme [facility] POCT HBA1C (test code = 4548-4) 8.3 % 4-6 A Lab Interpretation (test cod e = 18135-4) Abnormal [facility] Notes Date/Time Note Provider Source 2023-07-18 17:30:11 8qlZB7X60SubARXMyhrK 8bzw1Qk8v8Xqi hIoTNwK5REIEQt35WTeet5G7q7suZqo93 05-08-047:30:11 Please call patient and let her know that since her insurance will not cover her Víctorxiga, I have placed a prescription for Jardiance instead. 32911-6Iifgcderr encounter GjrfDH3055-03-58R30:35:27Telephon e encounter NoteTXT1.2.840.662446.1.13.104.2. 7.2.087781|[id number] for patient jocy75986-9HywgETEESTIHXGAHomubsb ed C-CDA narrative [address] FdyrUrnescapzYuctjebmwPYYA4177665 379WPFBGHLYEOBGLLWPSHCRCQ1395-42- 05T17:35:271.2.840.753215.1.72.3. 15|1.2.840.622044.1.13.104.2.7.2. 727879_[id number] [facility] 2023-07-05 10:35:21 5/pWb+jm2mEswfE8XZUK RSTZXFS+QW5B8 MHPPFWLIyNptLS33uctPxIA4Qpq8/zG20 08-07-20T10:35:21 RAMILA 04/28/2023NOV 4dapagliflozin (FARXIGA) 10 mg Lon Montes MA 07/05/2023 10:37 AM 08399-1Uilvajoae encounter LfeoUV6956-21-92A07:38:21Telephon e encounter NoteTXT1.2.840.614561.1.13.104.2. 7.2.684446|5787589633LLZxbifmmid for patient vkwv26032-8YzqgSSVOFASTRBNJnnbxcl ed C-CDA narrative text[address] VadlOefuynlbhXckdmgfaiTYCB0549844 422RJGUDAOEMTYALNZDKAINUT5992-98- 21T10:38:211.2.840.017043.1.72.3. 15|1.2.840.589388.1.13.104.2.7.2. 727879_[id number] [facility] 2023-06-21 10:08:21 BHroDVyzY9z0okAW1Yc0 DS0p6BewO5qPY lbgLzZaDDYPMQbBPHz9rz9BapszcV1U54 08-07-06T10:08:21 Spoke with patient and let her know Navdeepro was sent to pharmacy in place of Ozempic. She states she was doing well on Ozempic up until the last couple of doses which made her sick, vomiting, ect. Reminded patient importance of eating smaller, more frequent and health conscience meals to help avoid gastric issues when taking these types of medications.Patient reported eating healthier, making better choices. Blood sugar has gone up since being off Ozempic. 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 Let patient know many medications are requiring a prior authorization but the clinic sometimes does not receive the fax. 03452-1Iihixuiky encounter ApdgIJ9815-06-55M34:14:21Telephon e encounter NoteTXT1.2.840.437039.1.13.104.2. 7.2.447731|[id number] for patient bvuc29089-5PzvoGQPBVUVBBLPLgbkhqu ed C-CDA narrative [id number] D [place] [address] 078TBKAVEOKYGETZNGWUKBDSO2160-34- 07T10:14:211.2.840.916504.1.72.3. 15|1.2.840.473431.1.13.104.2.7.2. 727879_[id number] Aga Knutson LVN [facility] 2023-06-21 08:57:21 UsvgHOqGsFNGxW1m15X6 xgLBPlee90QUp w5vOJf0hB/p9CKOIg4bLAhgPTbvOCoH45 08-07-06T08:57:21 Noted. Closing encounter 16128-1Ajpdhhcky encounter KyocMK1985-97-62F84:57:33Telephon e encounter NoteTXT1.2.840.685344.1.13.104.2. 7.2.378382|6795801997GQFdyedvddk for patient nfcv58470-0OpcxMLNANLIAALUVuhzlre ed C-CDA narrative ilea188738795Rspp D [place] [address] 192KCATEDZXSXAHKQNQSBXXCB6737-87- 07T08:57:331.2.840.147288.1.72.3. 15|1.2.840.495688.1.13.104.2.7.2. 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 A prescription for Mounjaro 7.5 mg weekly injection has been sent to her local [facility] [place] [address]-1Sjmriqbpt encounter QutmQX1346-39-09A41:45:07Telephon e encounter NoteTXT1.2.840.388595.1.13.104.2. 7.2.375705|4252432610LUZcqoaijvk for patient apwt69082-6KwcfYYOCZYKZEKACjwfyjc ed C-CDA narrative textUT[address] DlzjJxescucqwShuubsupqUCHU4845193 843NGAFLRUWKIWHZIICKTJCGU8531-82- 07T08:45:071.2.840.646607.1.72.3. 15|1.2.840.338142.1.13.104.2.7.2. 727879_[id number] [facility] 2023-06-21 08:32:24 XAwAC8GNjnF6HApKM0Jb KBaVd90c2EFwl DPczu77oltzYT2oXBmuENklD+/aNcX960 08-07-0608:32:24 Flora Ascencio is a 53 year old female pt is calling stating she is still having elevated blood sugars and Ozempic makes her vomit. Please advise asap 55662-5Yzxoymmwp encounter JnscCG5421-22-55X55:34:11Telephon e encounter NoteTXT1.2.840.684760.1.13.104.2. 7.2.548886|9887092466BGImxqnuigi for patient dafa06211-2CiduLTCPTAYNKBZHgybywh ed C-CDA narrative oryq058835739Kqqoqcuo [address]TXTX[address] 062EDEMGAUCUNOFELRDPUDXGG5266-66- 07T08:34:111.2.840.731959.1.72.3. 15|1.2.840.642927.1.13.104.2.7.2. 727879_[id number] [facility] 14:28:34 fguXPrLcvR/z8O+vCuO4 ezzxedq8qj22G nCFXCX158ctXEFKSYBFzudQRAsmpadU74 08-07-05T14:28:34 Exchange Consultant Karri is calling to talk to the Nurse about the Assessment call yesterday. Please call Karri at [phone] signed by Lauren Wesley at 06/20/2023 2:30 PM RRH78836-2Rbnhgbiyr encounter SutiXY3783-30-74D26:30:01Telephon e encounter NoteTXT1.2.840.094031.1.13.104.2. 7.2.468174|2511022445KGLegdxdgmy for patient pfdv70478-5QgaoDOUAGTORUDSDwpfitr ed C-CDA narrative kofm468653355Ptdgb J Boudreau[address]TXTX[address] 779MVCSIXZZGJVEDHKBFWODGH5251-91- 06T14:30:011.2.840.117998.1.72.3. 15|1.2.840.598731.1.13.104.2.7.2. 727879_[id number] Lauren Wesley [facility] 2023-06-20 13:27:27 1evv97Qikv1+qog1jYeE Yhn1vDkqRuWjy T/V2BEVaKRSiQA6wlR2BioGSlqaKFQT71 08-07-053:27:27 Flora Ascencio is a 53 year old femalePts caregiver is calling to speak with a nurse regarding pts blood sugar and vomiting , Please advise 18564-5Havysjroo encounter SeiqXE5681-57-54G46:29:36Telephon e encounter NoteTXT1.2.840.134747.1.13.104.2. 7.2.455210|0921307467BGRxzuciefl for patient wjcw88950-7QpzsYVIJZJLXJHBWlhnpua ed C-CDA narrative khxa539617079Jczvee [address] HjkcUqgqvffwmCylprhohnGQMI2563322 487FBJRKZKVJHGCNHNFACZDXI3488-36- 06T13:29:361.2.840.802571.1.72.3. 15|1.2.840.241753.1.13.104.2.7.2. 727879_[id number] Rut Navarrete [facility] 2023-06-20 10:32:16 Jasmyne/Kai/PROCfLAcgr MAYimMdqe6+63 0nFyMvtZtxlz6RyBRdbzlpZk7tKEr6K17 08-07-050:32:16 Flora Ascencio is a 53 year old femalePt is calling back requesting to speak with a nurse 49623-1Tqpgnkyck encounter FnpvSL3993-92-14E60:32:46Telephon e encounter NoteTXT1.2.840.985419.1.13.104.2. 7.2.730832|8679650746YLCtrnugqjx for patient tuvf17683-5CkuoDXLDOKCOVSKRgjymkb ed C-CDA narrative mavt897863715Lswanu Mayra Hay[address]TXTX[address] 886IKBBIWDINCYWBDSXNABSYJ6021-09- 06T10:32:461.2.840.546638.1.72.3. 15|1.2.840.132063.1.13.104.2.7.2. 727879_[id number] Chinyere Guido [facility] 2023-06-20 09:11:52 2qj/eEFn7sRLTN5cvnEf Jose/5LdRZZQR P4yhXKAUoTruzbePEMrLw2kJ5ADi2sz74 08-07-05T09:11:52 Flora Ascencio is a 53 year old femalePatient mother calling in requesting a call back from nurse regarding pts sugar being high in the mornings.[phone] - [phone] - [facility] number 13921-0Ygmmypzki encounter FbozLJ0287-06-54Y08:13:20Telephon e encounter NoteTXT1.2.840.278874.1.13.104.2. 7.2.691833|5125712367DZObkqjihoi for patient pprw62808-2WoqdKPIUKRHZYCAMhlqcaa ed C-CDA narrative dspg971666603Iqax [address]TXTX[address] 659FYAVGJJJNXORQCOUQAHAQS6655-66- 06T09:13:201.2.840.665275.1.72.3. 15|1.2.840.124904.1.13.104.2.7.2. 727879_[id number] Madelyn Curtis [facility] 2023-06-19 15:11:01 g6yLKYSukEMo6tXIBh/0 HsTHbaWxQIERL bWb9s340yTl+TxyDI4+souCSEqi3JGD10 08-07-045:11:01 Pt florin moon call 30959-5Ukwusubil encounter FyoyUS3392-19-97E14:11:13Telephon e encounter NoteTXT1.2.840.554354.1.13.104.2. 7.2.687413|8464188910ZEAwteaqeuj for patient rftr22112-3PizuTLWAQXSTEBYGmeyrwf ed C-CDA narrative cdlo670984607Jcvrjrb [address] UvqbO[id number] 710EGRJGYVBAIHDEOJYAFEZMN3353-61- 05T15:11:131.2.840.018094.1.72.3. 15|1.2.840.050626.1.13.104.2.7.2. 727879_[id number] Diann Mckinney [facility] 2023-06-19 14:58:52 5gVc/cqI55JExr7d1In0 h9zJ7879HRkHi KkCzuxs8KQW4tDsV1Dy3nlQ3/cPCGF835 08-07-044:58:52 Reached out to patient but no answer. Left message. 78365-0Jxosxhxxv encounter DqylCD4398-81-24B68:59:21Telephon e encounter NoteTXT1.2.840.604131.1.13.104.2. 7.2.615823|8579641000YFMhpntnyye for patient wraq54170-9LeyxAXHJCHNUZMIEwnuxot ed C-CDA narrative text[address]TXTX[address]77 459EKLITAFIQSOIYPMDOBURZE7514-75- 05T14:59:211.2.840.700885.1.72.3. 15|1.2.840.280272.1.13.104.2.7.2. 727879_[id number] [facility] 2023-06-19 14:39:12 SoMetC4fCePAp1pox1JU R4aaSh/Ad0QSc 3pvkPlJQiksOZmaObcPawn1PtySvF0T85 08-07-044:39:12 Pt is returning call to the nurse about her blood sugar being 300.969-179-0372Qqlfikufwmmvch signed by Lauren Wesley at 06/19/2023 2:41 PM WIJ03972-4Jlqyrkwwe encounter TckaJF8814-36-32G74:41:16Telephon e encounter NoteTXT1.2.840.864196.1.13.104.2. 7.2.023005|8507021395EMVvaekyoes for patient attq06331-1TkwlZXGBPROBQTDAkxvzjc ed C-CDA narrative textUT[address] Brown StreetTXTX[address]77 653ECXSIHCQRLHRGEIRIKUUIK3448-56- 05T14:41:161.2.840.027810.1.72.3. 15|1.2.840.587168.1.13.104.2.7.2. 727879_[id number] [facility] 2023-06-19 08:28:46 Vz2s3rJv2z6JMQLRueiF GnWvLWlOMBbWJ cGAj3ackUckosed6MpSGHcXW/2Zs8UU54 08-07-0408:28:46 Pt states that her meds are not helping. Pt states that her blood sugar is 300. She states that Ozempic makes her vomit. Pls advise. 64636-5Tsimsujzp encounter YkjdIL5011-24-95A06:29:57Telephon e encounter NoteTXT1.2.840.955507.1.13.104.2. 7.2.982523|[id number] for patient axbj25908-0AkspJHUVWAHPGSOLzlvjet ed C-CDA narrative [id number] [address] HirxLesxsrmpcRqgtpwuotGZGP8457779 442QEQVIZDWYXNJXKAIHMPFAG3220-32- 05T08:29:571.2.840.904000.1.72.3. 15|1.2.840.392751.1.13.104.2.7.2. 727879_[id number] Danilo [facility] 2023-05-23 10:09:53 HLomkn4NRQ5/1x9MbGZV kDglHcCeOsOij tishEDZ/sDltLpM4XJtA4lQalqAbY3t51 07-06-080:09:53 RAMILA 04/28/23NOV 08/25/23Per RAMILA note:Please restart Glimepiride 2 mg BID 04228-0Zvabnxnxs encounter VlpwYI3411-02-53A71:11:09Telephon e encounter NoteTXT1.2.840.570853.1.13.104.2. 7.2.995746|5027262176CHJrbyimpkq for patient wznh52764-4FhmtNVPITSOBOQUUvvvezr ed C-CDA narrative textUT49 Armstrong StreetJmnkIuyprsfgrZfigcagsrPMPE8678796 155FKFBQZLFHELGFXMIYURJDZ6423-58- 09T10:11:091.2.840.040843.1.72.3. 15|1.2.840.934210.1.13.104.2.7.2. 727879_[id number] [facility] 2023-05-22 17:24:23 yvkAGVYw1z+bIq8ZuvMc AXzHl0VT093bb eUr1QGrhfCcUmUdQ2ow9mUAOETaNHfP68 07-06-077:24:23 Images from the original note were not included. 53841-1Aqqzqmcuv encounter UxglVC3619-48-84Z52:25:05Telephon e encounter NoteTXT1.2.840.844701.1.13.104.2. 7.2.000287|1975359194DUFycowajav for patient agum11782-0ZtzeFUCZUOOMZHRGokevla ed C-CDA narrative rxwc167906509Doilpo NallUT49 [address] StreetMwqfVtwhvivemBgikapqhwCCCA9206688 171ZKYOJKSEVCILQYTZTFSJCG6431-69- 08T17:25:051.2.840.214058.1.72.3. 15|1.2.840.565520.1.13.104.2.7.2. 727879_[id number] Ginger Thomas [facility]"
--- NOTE | 2023-07-28 06:43 | EDPHYS ---
Physician Documentation [facility] Name: Flora Ascencio Age: 53 yrs Sex: Female : 1970 Arrival Date: 07/28/2023 Time: 04:36 Bed 6 Private MD: ED Physician Emiliano Lagos HPI: 07/27 04:44 This 53 yrs old Female presents to ER via Unassigned with complaints of sp4 Facial Swelling. 06:53 Pleasant 53-year-old female presents with complaint of left lower gingival pain left sp4 lower facial pain. Patient states that is also blister consistent with fever blister to the left lower lip. . 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 - Social history:: Smoking status: Patient reports the use of cigarette tobacco products, denies chronic smoking, but will smoke occasionally, Patient uses alcohol, but reports only rare drinking. Patient/guardian denies using street drugs. - Family history:: not pertinent. ROS: 06:53 Constitutional: Negative for fever, chills, and weight loss, positive for left lower sp4 gingival pain, positive lower dental pain. Eyes: Negative for injury, pain, redness, and discharge, ENT: Negative for injury, positive for left lower gingival pain 06:53 All other systems are negative, Exam: 06:53 Constitutional: This is a well developed, well nourished patient who is awake, alert, sp4 and in no acute distress. Head/Face: Normocephalic, atraumatic. Eyes: Pupils equal round and reactive to light, extra-ocular motions intact. Lids and lashes normal. Conjunctiva and sclera are not injected. Cornea within normal limits. Periorbital areas with no swelling, redness, or edema. ENT: Nares patent. No nasal discharge, no septal abnormalities noted. Tympanic membranes are normal and external auditory canals are clear. Oropharynx with no redness, swelling, or masses, exudates, or evidence of obstruction, uvula midline. Mucous membranes moist. There is small fever blister lower lip left side Neck: Trachea midline, no thyromegaly or masses palpated, and no cervical lymphadenopathy. Supple, full range of motion without nuchal rigidity, or vertebral point tenderness. Chest/axilla: Normal chest wall appearance and motion. Nontender with no deformity. No lesions are appreciated. Cardiovascular: Regular rate and rhythm with a normal S1 and S2. No gallops, murmurs, or rubs. Normal PMI, no JVD. No pulse deficits. Respiratory: Lungs have equal breath sounds bilaterally, clear to auscultation and percussion. No rales, rhonchi or wheezes noted. No increased work of breathing, no retractions or nasal flaring. Abdomen/GI: Soft, with normal bowel sounds. No distension or tympany. No guarding or rebound. No evidence of tenderness throughout. Back: No spinal tenderness. No costovertebral tenderness. Skin: Warm, dry with normal turgor. Normal color with no rashes, no lesions, and no evidence of cellulitis. MS/ Extremity: Pulses equal, no cyanosis. Neurovascular intact. Full, normal range of motion. Neuro: Awake and alert, GCS 15, oriented to person, place, time, and situation. Cranial nerves II-XII grossly intact. Motor strength 5/5 in all extremities. Sensory grossly intact. Psych: Awake, alert, with orientation to person, place and time. Behavior, mood, and affect are within normal limits Vital Signs: 04:50 Pulse 98; Resp 18; Temp 97.5; Pulse Ox 97% on R/A; Weight 131.54 kg; Height 5 ft. 8 in. pf1 ; Pain 5/10; 05:19 vc1 06:31 Pulse 96; Resp 16 S; Pulse Ox 97% on R/A; jw7 04:50 Body Mass Index 44.09 (131.54 kg, 172.72 cm) pf1 04:50 Pain Scale: Adult pf1 04:50 Patient refused BP pf1 05:19 Patient refuses blood pressure, states it hurts to bad, tried on forearm as well. Pt vc1 states it still hurts too bad. MDM: 05:07 Patient medically screened. sp4 06:53 Differential Diagnosis Dental pain, gingival pain, gingivitis, periapical abscess, sp4 stomatitis, herpes labialis. Data reviewed: vital signs, nurses notes, radiologic studies, CT scan. ED course: CT revealed no periapical abscesses. . 07/27 05:02 Order name: CT Facial Bones W/O Con sp4 Administered Medications: 05:27 Drug: Ondansetron PO 4 mg PO once Route: PO; vc1 07:05 Follow up: Response: No adverse reaction; Marked relief of symptoms jw7 05:27 Drug: Acyclovir PO 800 mg PO once Route: PO; vc1 07:05 Follow up: Response: No adverse reaction jw7 05:28 Drug: Rocephin (cefTRIAXone) IM 1 grams IM once Route: IM; Site: right gluteus; vc1 07:05 Follow up: Response: No adverse reaction jw7 05:28 Drug: Ketorolac IM 60 mg IM once Route: IM; Site: right ventrogluteal; vc1 07:05 Follow up: Response: No adverse reaction; Marked relief of symptoms jw7 Disposition Summary: 07/28/23 06:42 Discharge Ordered Notes: Location: Home sp4 Problem: new sp4 Symptoms: have improved sp4 Condition: Stable sp4 Diagnosis - Dental alveolar anomalies sp4 Followup: sp4 - With: Christian Araiza DDS - When: 7 - 10 days - Reason: Recheck today's complaints Discharge Instructions: - Discharge Summary Sheet sp4 - Dental Pain, [id number] sp4 Forms: - Patient Portal Instructions sp4 Prescriptions: - naproxen 500 mg Oral tablet - take 1 tablet ORAL route every 12 hours PRN pain; 30 tablet; Refills: 0, sp4 Product Selection Permitted - promethazine 25 mg Oral tablet - take 1 tablet ORAL route every 6 hours PRN nausea; 30 tablet; Refills: 0, sp4 Product Selection Permitted - valacyclovir 1 gram Oral tablet - take 1 tablet ORAL route every 12 hours for 10 days; 20 tablet; Refills: 0, sp4 Product Selection Permitted - Fioricet 50-300-40 mg Oral capsule - take 1 capsule ORAL route every 6 hours PRN pain; 30 capsule; Refills: 0, sp4 Product Selection Permitted - Tramadol 50 mg Oral tablet - take 1 tablet ORAL route every 8 hours as needed; 20 tablet; Refills: 0, sp4 Product Selection Permitted Signatures: Dispatcher [employer] Raisa Robertson RN RN vc1 Sarah Saldana RN RN pf1 Emiliano Lagos MD MD sp4 Cristina Aleman RN jw7 Corrections: (The following items were deleted from the chart) 05:04 04:56 PSHx: foot (Hypertensive disorder); pf1 pf1
--- NOTE | 2023-07-28 06:43 | ER ---
Nurse's Notes [facility] Name: Flora Ascencio Age: 53 yrs Sex: Female : 1970 Arrival Date: 07/28/2023 Time: 04:36 Bed 6 Private MD: Diagnosis: Dental alveolar anomalies Presentation: 07/27 04:50 Chief complaint: Patient states: left lower tooth infection with pain of 5,onset 2 pf1 weeks. Patient stated is currently taking doxycycline since Monday from Dr. Rascon. Coronavirus screen: Vaccine status: Client denies travel out of the [place] in the last 14 days. At this time, the client does not indicate any symptoms associated with coronavirus-19. Ebola Screen: Patient negative for fever greater than or equal to 101.5 degrees Fahrenheit, and additional compatible Ebola Virus Disease symptoms. Initial Sepsis Screen: Does the patient meet any 2 criteria? HR > 90 bpm. No. Patient's initial sepsis screen is negative. Does the patient have a suspected source of infection? No. Patient's initial sepsis screen is negative. Risk Assessment: Do you want to hurt yourself or someone else? Patient reports no desire to harm self or others. 04:50 Method Of Arrival: Ambulatory pf1 04:50 Acuity: LILLIANA 4 pf1 05:24 Onset of symptoms is unknown. vc1 Triage Assessment: 04:45 General: Appears in no apparent distress. comfortable, obese, well groomed, well pf1 developed, Behavior is calm, cooperative, appropriate for age, quiet. 04:45 Pain: Complains of pain in left lower mouth Pain began 2 weeks. 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 - Social history:: Smoking status: Patient reports the use of cigarette tobacco products, denies chronic smoking, but will smoke occasionally, Patient uses alcohol, but reports only rare drinking. Patient/guardian denies using street drugs. - Family history:: not pertinent. Screenin:[facility] ED Fall Risk Assessment (Adult) History of falling in the last 3 months, vc1 including since admission No falls in past 3 months (0 pts) Confusion or Disorientation No (0 pts) Intoxicated or Sedated No (0 pts) Impaired Gait No (0 pts) Mobility Assist Device Used No (0 pt) Altered Elimination No (0 pt) Score/Fall Risk Level 0 - 2 = Low Risk Oriented to surroundings, Maintained a safe environment, Educated pt \\T\\ family on fall prevention, incl call for assistance when getting out of bed. Abuse screen: Denies threats or abuse. Nutritional screening: No deficits noted. Tuberculosis screening: No symptoms or risk factors identified. Assessment: 05:22 General: Appears in no apparent distress. comfortable, obese, well groomed, Behavior is vc1 calm, cooperative, appropriate for age. Pain: Complains of pain in left cheek and left jaw Pain does not radiate. Pain currently is 5 out of 10 on a pain scale. at worst was 10 out of 10 on a pain scale. Quality of pain is described as throbbing, Pain began couple of weeks Is continuous, Also complains of no other associated symptoms. Neuro: Level of Consciousness is awake, alert, obeys commands, Oriented to person, place, time, situation, Appropriate for age. Cardiovascular: Heart tones S1 S2 Capillary refill < 3 seconds Patient's skin is warm and dry. Respiratory: Airway is patent Respiratory effort is even, unlabored, Respiratory pattern is regular, symmetrical, Breath sounds are clear. GI: No deficits noted. No signs and/or symptoms were reported involving the gastrointestinal system. Abdomen is round non-distended, Abd is soft and non tender Patient currently denies nausea. : No deficits noted. No signs and/or symptoms were reported regarding the genitourinary system. EENT: No deficits noted. No signs and/or symptoms were reported regarding the EENT system. Derm: swelling to left side of face. Musculoskeletal: No deficits noted. No signs and/or symptoms reported regarding the musculoskeletal system. 06:30 Reassessment: Patient appears in no apparent distress at this time. No changes from jw7 previously documented assessment. Patient and/or family updated on plan of care and expected duration. Pain level reassessed. Patient is alert, oriented x 3, equal unlabored respirations, skin warm/dry/pink. Vital Signs: 04:50 Pulse 98; Resp 18; Temp 97.5; Pulse Ox 97% on R/A; Weight 131.54 kg; Height 5 ft. 8 in. pf1 ; Pain 5/10; 05:19 vc1 06:31 Pulse 96; Resp 16 S; Pulse Ox 97% on R/A; jw7 04:50 Body Mass Index 44.09 (131.54 kg, 172.72 cm) pf1 04:50 Pain Scale: Adult pf1 04:50 Patient refused BP pf1 05:19 Patient refuses blood pressure, states it hurts to bad, tried on forearm as well. Pt vc1 states it still hurts too bad. ED Course: 04:39 Patient arrived in ED. jj6 04:44 Emiliano Lagos MD is Attending Physician. sp4 04:56 Triage completed. pf1 05:22 Arm band placed on right wrist. vc1 05:24 Patient has correct armband on for positive identification. Bed in low position. Call vc1 light in reach. 05:30 Provided Education on: use of call light. jw7 05:42 CT Facial Bones W/O Con In Process Unspecified. EDMS 06:41 Christian Araiza DDS is Referral Physician. sp4 07:04 No provider procedures requiring assistance completed. Patient did not have IV access jw7 during this emergency room visit. Administered Medications: 05:27 Drug: Ondansetron PO 4 mg PO once Route: PO; vc1 07:05 Follow up: Response: No adverse reaction; Marked relief of symptoms jw7 05:27 Drug: Acyclovir PO 800 mg PO once Route: PO; vc1 07:05 Follow up: Response: No adverse reaction jw7 05:28 Drug: Rocephin (cefTRIAXone) IM 1 grams IM once Route: IM; Site: right gluteus; vc1 07:05 Follow up: Response: No adverse reaction jw7 05:28 Drug: Ketorolac IM 60 mg IM once Route: IM; Site: right ventrogluteal; vc1 07:05 Follow up: Response: No adverse reaction; Marked relief of symptoms jw7 Medication: 05:24 VIS not applicable for this client. vc1 Outcome: 06:42 Discharge ordered by . sp4 07:04 Discharged to home ambulatory, jw7 07:04 Condition: stable 07:04 Discharge instructions given to patient, Instructed on discharge instructions, follow up and referral plans. medication usage, Demonstrated understanding of instructions, follow-up care, medications, Prescriptions given X 5 07:05 Patient left the ED. jw7 Addendum: 07/29/2023 18:09 Addendum: Other patient has called several times today requesting more pain meds to be e b called in/ explained to her that we nor the providers are allowed to all in any medication that if she felt that she needed to get rechecked or had a medical emergency she is more than welcome to return to the ED/ pt states " I WILL NOT BE COMING BACK UP THERE SOMEONE WILL BE CALLING IN MORE PAIN MEDS" she left her cell number for a provider "ONLY" to call her at [phone]. Signatures: Dispatcher [employer] EDVT Yani Wilson Jennifer jj6 Raisa Raza RN RN vc1 Cristina Aleman RN RN jw7 Sarah Saldana RN RN pf1 Emiliano Lagos MD MD sp4 Corrections: (The following items were deleted from the chart) 07/27 05:04 04:56 PSHx: foot (Hypertensive disorder); pf1 pf1
[2023-07-28 07:22] VITALS: TEMP 97.5; O2SAT 97
--- NOTE | 2023-07-28 07:49 | RAD REPORT ---
EXAM DESCRIPTION: CT - Facial Bones W/ Mpr - 07/28/2023 5:40 am CLINICAL HISTORY: Left lower facial pain COMPARISON: None TECHNIQUE: Computed axial tomography of the face was obtained. Coronal and sagittal reconstruction w as performed. All CT scans are performed using dose optimization technique as appropriate and may include automated exposure control or mA/KV adjustment according to patient size. FINDINGS: The visualized airway unremarkable. Parotid and submandibular glands unremarkable Mild edema within left cheek. No abscess. The globes are intact. Fluid within the sinuses is not seen. A mucus retention cyst right maxillary sinus IMPRESSION: Mild edema left cheek may indicate a cellulitis should be correlated clinically. No absc ess seen
== END ==
LOC: ER 04:36
DX: M26.79 Other specified alveolar anomalies (principal); K08.89 Other specified disorders of teeth and supporting structures; E11.9 Type 2 diabetes mellitus without complications; I10 Essential (primary) hypertension; F17.210 Nicotine dependence, cigarettes, uncomplicated; Z88.5 Allergy status to narcotic agent
CPT/HCPCS: 70486; 76377; 96372; 99284; Q0162; J0696

== ENCOUNTER → 2023-07-31 | Emergency (ER) | payer OTHER ==
--- OUTSIDE RECORDS SUMMARY | 2023-07-31 07:18 | XMS REPORT | Continuity of Care Document ---
Author Name Unknown Address [address] [facility] [address] [place] [address] [facility] thconnect Address [address] [facility] [address] [place] [address] Care Team Providers Care Bench Tool Maker Name Role Phone Sandra Owens Primary Care Physician [phone] SUZANNA CALVILLO Attending Clinician Unavailable Suzanna Lora Attending Clinician [phone] Doctor Unassigned, [place] Attending Clinician U navailable [email or web address]_S Attending Clinician Janna Ventura MD Attending Clinician [phone] JANNA HERNANDES Attending Clinician Unavailable Team, [facility] Attending Clinicia n Inge Hay MD Attending Clinician INGE [place] Attending Clinician Unavailable BJ BLACKWELL Attending Clinician Bj Moseley MD Attending Clinician [phone] [email or web address]_Kaarinaa_S Admitting Clinician Sarah araujo Payers Payer Name Policy Type Policy Number Effective Date Expirati on Date Source [employer] CHO[employer] [id number] 2020 00:00:00 Problems Condition Name Condition Details [...] in adult Disease Active 10-25 00:00: 00 [facility] Mixed hyperlipid emia Mixed hyperlipid emia Disease Active 10-25 00:00: 00 [facility] Type 2 diabetes mellitus with hyperglyce yeyo, without long-term current use of insulin Type 2 diabetes mellitus with hyperglyce yeyo, without long-term current use of insulin Disease Active 08-23 00:00: 00 [facility] Allergies, Adverse Reactions, Alerts Allergy Name Allergy Type Status Severity Reaction(s) Onset Date Inactive Date Treating Clinician Comments Source CODEINE DRUG INGREDI Active Rash 10-18 00:00: 00 [facility] LORAZEPA M DRUG INGREDI Active Hives 10-18 00:00: 00 [facility] Codeine Propensi ty to adverse reaction s Active Rash 10-18 00:00: 00 [facility] Lorazepa m Propensi ty to adverse reaction s Active Hives 10-18 00:00: 00 [facility] NO KNOWN ALLERGIE S Drug Class Active [facility] Social History Social Habit Start Date Stop Date Quantity Comments Source [facility] of tobacco use Cigar Smoker [facility] Alcohol intake 2023-05-12 00:00:00 2023-05-12 00:00:00 .14 /d [facility] History of Social function 2023-04-28 00:00:00 2023-04-28 00:00:00 [facility] Exposure to SARS-CoV-2 (event) 2022-02-12 00:00:00 2022-02-22 12:15:00 Not sure [facility] Sex Assigned At 1970 00:00:00 1970 00:00:00 [facility] Smoking Status Start Date Stop Date Source Occasional tobacco smoker 2023-05-12 00:00:00 [facility] Tobacco smoking consumption unknown [facility] Medications Ordered Medication Name Filled Medication Name Start Date Stop Date Current Medication? Ordering Clinician Indication Dosage Frequency Signature (SIG) Comments Components Source empaglifloz in (JARDIANCE) 10 mg tablet 07-17 00:00: 00 Yes [id number] 10mg Take 1 tablet by mouth in the morning. [facility] DAPAGLIFLOZ IN PROPANEDIOL 10 mg tablet 07-05 00:00: 00 Yes [id number] 10mg TAKE 1 TABLET BY MOUTH IN THE MORNING [facility] DAPAGLIFLOZ IN PROPANEDIOL 10 mg tablet 07-05 00:00: 00 07-17 00:00 :00 No [id number] 10mg TAKE 1 TABLET BY MOUTH IN THE MORNING [facility] tirzepatide (MOUNJARO) 7.5 mg/0.5 mL subcutaneou s injection 06-21 00:00: 00 Yes [id number] 7.5mg inject 7.5 mg under the skin weekly. [facility] tirzepatide (MOUNJARO) 7.5 mg/0.5 mL subcutaneou s injection 06-21 00:00: 00 Yes [id number] 7.5mg inject 7.5 mg under the skin weekly. [facility] tirzepatide (MOUNJARO) 7.5 mg/0.5 mL subcutaneou s injection 06-21 00:00: 00 Yes [id number] 7.5mg inject 7.5 mg under the skin weekly. [facility] tirzepatide (MOUNJARO) 7.5 mg/0.5 mL subcutaneou s injection 06-21 00:00: 00 Yes [id number] 7.5mg inject 7.5 mg under the skin weekly. [facility] glimepiride 2 mg tablet - 00:00: 00 Yes [id number] 2mg Take 1 tablet by mouth 2 (two) times daily before breakfast and dinner. [facility] glimepiride 2 mg tablet 05-23 00:00: 00 Yes [id number] 2mg Take 1 tablet by mouth 2 (two) times daily before breakfast and dinner. [facility] glimepiride 2 mg tablet 4-0 1-09 00:00: 00 Yes [id number] 2mg Take 1 tablet by mouth 2 (two) times daily before breakfast and dinner. [facility] glimepiride 2 mg tablet 4-0 1-09 00:00: 00 Yes [id number] 2mg Take 1 tablet by mouth 2 (two) times daily before breakfast and dinner. [facility] glimepiride 2 mg tablet 4-0 1-09 00:00: 00 Yes [id number] 2mg Take 1 tablet by mouth 2 (two) times daily before breakfast and dinner. [facility] dapaglifloz in (FARXIGA) 10 mg tablet 3-0 6-12 00:00: 00 Yes [id number] TAKE 1 TABLET BY MOUTH IN THE MORNING [facility] dapaglifloz in (FARXIGA) 10 mg tablet 3-0 6-12 00:00: 00 Yes [id number] TAKE 1 TABLET BY MOUTH IN THE MORNING [facility] dapaglifloz in (FARXIGA) 10 mg tablet 3-0 6-12 00:00: 00 Yes [id number] TAKE 1 TABLET BY MOUTH IN THE MORNING [facility] dapaglifloz in (FARXIGA) 10 mg tablet 3-0 6-12 00:00: 00 Yes [id number] TAKE 1 TABLET BY MOUTH IN THE MORNING [facility] dapaglifloz in (FARXIGA) 10 mg tablet 3-0 6-12 00:00: 00 Yes [id number] TAKE 1 TABLET BY MOUTH IN THE MORNING [facility] dapaglifloz in (FARXIGA) 10 mg tablet 3-0 6-12 00:00: 00 Yes [id number] TAKE 1 TABLET BY MOUTH IN THE MORNING [facility] dapaglifloz in (FARXIGA) 10 mg tablet 2023-0 6-12 00:00: 00 Yes [id number] TAKE 1 TABLET BY MOUTH IN THE MORNING [facility] dapaglifloz in (FARXIGA) 10 mg tablet 2023-0 6-12 00:00: 00 07-05 00:00 :00 No [id number] TAKE 1 TABLET BY MOUTH IN THE MORNING [facility] Fe gluconate/v it C/folic acid (IRON-C ORAL) 10-18 13:42: 41 Yes [facility] Fe gluconate/v it C/folic acid (IRON-C ORAL) 0 10-18 13:42: 41 Yes [facility] Fe gluconate/v it C/folic acid (IRON-C ORAL) 0 10-18 13:42: 41 Yes [facility] Fe gluconate/v it C/folic acid (IRON-C ORAL) 10-18 13:42: 41 Yes [facility] Fe gluconate/v it C/folic acid (IRON-C ORAL) 10-18 13:42: 41 Yes [facility] Fe gluconate/v it C/folic acid (IRON-C ORAL) 10-18 13:42: 41 Yes [facility] Fe gluconate/v it C/folic acid (IRON-C ORAL) 0 10-18 13:42: 41 Yes [facility] Fe gluconate/v it C/folic acid (IRON-C ORAL) 10-18 13:42: 41 Yes [facility] Fe gluconate/v it C/folic acid (IRON-C ORAL) 0 10-18 13:42: 41 Yes [facility] Fe gluconate/v it C/folic acid (IRON-C ORAL) 0 10-18 13:42: 41 Yes [facility] Fe gluconate/v it C/folic acid (IRON-C ORAL) 10-18 13:42: 41 Yes [facility] L. acidophilus /Bifido. longum (PROBIOTIC PEARLS ORAL) 0 10-18 13:42: 40 Yes [facility] L. acidophilus /Bifido. longum (PROBIOTIC PEARLS ORAL) 10-18 13:42: 40 Yes [facility] L. acidophilus /Bifido. longum (PROBIOTIC PEARLS ORAL) 10-18 13:42: 40 Yes [facility] L. acidophilus /Bifido. longum (PROBIOTIC PEARLS ORAL) 10-18 13:42: 40 Yes [facility] L. acidophilus /Bifido. longum (PROBIOTIC PEARLS ORAL) 10-18 13:42: 40 Yes [facility] L. acidophilus /Bifido. longum (PROBIOTIC PEARLS ORAL) 10-18 13:42: 40 Yes [facility] L. acidophilus /Bifido. longum (PROBIOTIC PEARLS ORAL) 10-18 13:42: 40 Yes [facility] L. acidophilus /Bifido. longum (PROBIOTIC PEARLS ORAL) 10-18 13:42: 40 Yes [facility] L. acidophilus /Bifido. longum (PROBIOTIC PEARLS ORAL) 10-18 13:42: 40 Yes [facility] L. acidophilus /Bifido. longum (PROBIOTIC PEARLS ORAL) 10-18 13:42: 40 Yes [facility] L. acidophilus /Bifido. longum (PROBIOTIC PEARLS ORAL) 10-18 13:42: 40 Yes [facility] mv-mn/iron/ folic acid/herb 190 (VITAMIN D3 COMPLETE ORAL) 10-18 13:42: 39 Yes [facility] mv-mn/iron/ folic acid/herb 190 (VITAMIN D3 COMPLETE ORAL) 10-18 13:42: 39 Yes [facility] mv-mn/iron/ folic acid/herb 190 (VITAMIN D3 COMPLETE ORAL) 10-18 13:42: 39 Yes [facility] mv-mn/iron/ folic acid/herb 190 (VITAMIN D3 COMPLETE ORAL) 10-18 13:42: 39 Yes [facility] mv-mn/iron/ folic acid/herb 190 (VITAMIN D3 COMPLETE ORAL) 10-18 13:42: 39 Yes [facility] mv-mn/iron/ folic acid/herb 190 (VITAMIN D3 COMPLETE ORAL) 0 10-18 13:42: 39 Yes [facility] mv-mn/iron/ folic acid/herb 190 (VITAMIN D3 COMPLETE ORAL) 0 10-18 13:42: 39 Yes [facility] mv-mn/iron/ folic acid/herb 190 (VITAMIN D3 COMPLETE ORAL) 0 10-18 13:42: 39 Yes [facility] mv-mn/iron/ folic acid/herb 190 (VITAMIN D3 COMPLETE ORAL) 0 10-18 13:42: 39 Yes [facility] mv-mn/iron/ folic acid/herb 190 (VITAMIN D3 COMPLETE ORAL) 0 10-18 13:42: 39 Yes [facility] mv-mn/iron/ folic acid/herb 190 (VITAMIN D3 COMPLETE ORAL) 0 10-18 13:42: 39 Yes [facility] LISINOPRIL ORAL 0 10-18 13:22: 37 Yes Take by mouth. [facility] LISINOPRIL ORAL 0 10-18 13:22: 37 Yes Take by mouth. [facility] LISINOPRIL ORAL 0 10-18 13:22: 37 Yes Take by mouth. [facility] LISINOPRIL ORAL 0 10-18 13:22: 37 Yes Take by mouth. [facility] LISINOPRIL ORAL 0 10-18 13:22: 37 Yes Take by mouth. [facility] LISINOPRIL ORAL 2022-0 10-18 13:22: 37 Yes Take by mouth. [facility] LISINOPRIL ORAL 2022-0 10-18 13:22: 37 Yes Take by mouth. [facility] LISINOPRIL ORAL 0 10-18 13:22: 37 Yes Take by mouth. [facility] LISINOPRIL ORAL 2022-0 10-18 13:22: 37 Yes Take by mouth. [facility] LISINOPRIL ORAL 2022-10-18 13:22: 37 Yes Take by mouth. [facility] LISINOPRIL ORAL 10-18 13:22: 37 Yes Take by mouth. [facility] atorvastati n 40 mg tablet 10-18 13:22: 14 Yes 40mg Take 40 mg by mouth at bedtime. [facility] atorvastati n 40 mg tablet 10-18 13:22: 14 Yes 40mg Take 40 mg by mouth at bedtime. [facility] atorvastati n 40 mg tablet 10-18 13:22: 14 Yes 40mg Take 40 mg by mouth at bedtime. [facility] atorvastati n 40 mg tablet 10-18 13:22: 14 Yes 40mg Take 40 mg by mouth at bedtime. [facility] atorvastati n 40 mg tablet 10-18 13:22: 14 Yes 40mg Take 40 mg by mouth at bedtime. [facility] atorvastati n 40 mg tablet 10-18 13:22: 14 Yes 40mg Take 40 mg by mouth at bedtime. [facility] atorvastati n 40 mg tablet 10-18 13:22: 14 Yes 40mg Take 40 mg by mouth at bedtime. [facility] atorvastati n 40 mg tablet 10-18 13:22: 14 Yes 40mg Take 40 mg by mouth at bedtime. [facility] atorvastati n 40 mg tablet 10-18 13:22: 14 Yes 40mg Take 40 mg by mouth at bedtime. [facility] atorvastati n 40 mg tablet 0 10-18 13:22: 14 Yes 40mg Take 40 mg by mouth at bedtime. [facility] atorvastati n 40 mg tablet 0 10-18 13:22: 14 Yes 40mg Take 40 mg by mouth at bedtime. [facility] ezetimibe 10 mg tablet 10-18 13:22: 13 Yes 10mg Take 10 mg by mouth daily. [facility] ezetimibe 10 mg tablet 2022-0 10-18 13:22: 13 Yes 10mg Take 10 mg by mouth daily. [facility] ezetimibe 10 mg tablet 2022-0 10-18 13:22: 13 Yes 10mg Take 10 mg by mouth daily. [facility] ezetimibe 10 mg tablet 0 10-18 13:22: 13 Yes 10mg Take 10 mg by mouth daily. [facility] ezetimibe 10 mg tablet 2022-0 10-18 13:22: 13 Yes 10mg Take 10 mg by mouth daily. [facility] ezetimibe 10 mg tablet 0 10-18 13:22: 13 Yes 10mg Take 10 mg by mouth daily. [facility] ezetimibe 10 mg tablet 0 10-18 13:22: 13 Yes 10mg Take 10 mg by mouth daily. [facility] ezetimibe 10 mg tablet 0 10-18 13:22: 13 Yes 10mg Take 10 mg by mouth daily. [facility] ezetimibe 10 mg tablet 0 10-18 13:22: 13 Yes 10mg Take 10 mg by mouth daily. [facility] ezetimibe 10 mg tablet 0 10-18 13:22: 13 Yes 10mg Take 10 mg by mouth daily. [facility] ezetimibe 10 mg tablet 0 10-18 13:22: 13 Yes 10mg Take 10 mg by mouth daily. [facility] semaglutide (OZEMPIC) 2 mg/dose (8 mg/3 mL) PnIj 0 10-18 00:00: 00 Yes [id number] 2mg inject 2 mg under the skin weekly. [facility] glimepiride 2 mg tablet 0 10-18 00:00: 00 Yes [id number] 2mg Take 1 tablet by mouth 2 (two) times daily before breakfast and dinner. [facility] semaglutide (OZEMPIC) 2 mg/dose (8 mg/3 mL) PnIj 10-18 00:00: 00 Yes [id number] 2mg inject 2 mg under the skin weekly. [facility] glimepiride 2 mg tablet 10-18 00:00: 00 Yes [id number] 2mg Take 1 tablet by mouth 2 (two) times daily before breakfast and dinner. [facility] semaglutide (OZEMPIC) 2 mg/dose (8 mg/3 mL) PnIj 10-18 00:00: 00 Yes [id number] 2mg inject 2 mg under the skin weekly. [facility] glimepiride 2 mg tablet 10-18 00:00: 00 Yes [id number] 2mg Take 1 tablet by mouth 2 (two) times daily before breakfast and dinner. [facility] semaglutide (OZEMPIC) 2 mg/dose (8 mg/3 mL) PnIj 10-18 00:00: 00 Yes [id number] 2mg inject 2 mg under the skin weekly. [facility] glimepiride 2 mg tablet 10-18 00:00: 00 Yes [id number] 2mg Take 1 tablet by mouth 2 (two) times daily before breakfast and dinner. [facility] semaglutide (OZEMPIC) 2 mg/dose (8 mg/3 mL) PnIj 10-18 00:00: 00 Yes [id number] 2mg inject 2 mg under the skin weekly. [facility] glimepiride 2 mg tablet 10-18 00:00: 00 Yes [id number] 2mg Take 1 tablet by mouth 2 (two) times daily before breakfast and dinner. [facility] semaglutide (OZEMPIC) 2 mg/dose (8 mg/3 mL) PnIj 0 10-18 00:00: 00 Yes [id number] 2mg inject 2 mg under the skin weekly. [facility] glimepiride 2 mg tablet 10-18 00:00: 00 Yes [id number] 2mg Take 1 tablet by mouth 2 (two) times daily before breakfast and dinner. [facility] semaglutide (OZEMPIC) 2 mg/dose (8 mg/3 mL) PnIj 0 6-06 00:00: 00 Yes [id number] 2mg inject 2 mg under the skin weekly. [facility] semaglutide (OZEMPIC) 2 mg/dose (8 mg/3 mL) PnIj 0 6- 00:00: 00 06-21 00:00 :00 No [id number] 2mg inject 2 mg under the skin weekly. [facility] glimepiride 2 mg tablet 0 - 00:00: 00 05-23 00:00 :00 No [id number] 2mg Take 1 tablet by mouth 2 (two) times daily before breakfast and dinner. [facility] dapaglifloz in ([facility]) 10 mg tablet 3-0 5-25 00:00: 00 Yes [id number] 10mg Take 1 tablet by mouth in the morning. NEED TO MAKE FOLLOW UP APPT FOR FURTHER REFILLS [facility] 10 mg tablet 3-0 5-25 00:00: 00 10-24 00:00 :00 No [id number] 10mg Take 1 tablet by mouth in the morning. NEED TO MAKE FOLLOW UP APPT FOR FURTHER REFILLS [facility] dapaglifloz in ([facility] 10 mg tablet 3-0 5-25 00:00: 00 10-24 00:00 :00 No [id number] 10mg Take 1 tablet by mouth in the morning. NEED TO MAKE FOLLOW UP APPT FOR FURTHER REFILLS [facility] dapaglifloz in ([facility] 10 mg tablet 3-0 5-25 00:00: 00 10-24 00:00 :00 No [id number] 10mg Take 1 tablet by mouth in the morning. NEED TO MAKE FOLLOW UP APPT FOR FURTHER REFILLS [facility] ABILIFY 10 mg tablet 2023-0 5-10 00:00: 00 Yes [facility] ABILIFY 10 mg tablet 3-0 5-10 00:00: 00 Yes [facility] ABILIFY 10 mg tablet 2023-0 5-10 00:00: 00 Yes [facility] ABILIFY 10 mg tablet 2023-0 5-10 00:00: 00 Yes [facility] ABILIFY 10 mg tablet 2023-0 5-10 00:00: 00 Yes [facility] ABILIFY 10 mg tablet 3-0 5-10 00:00: 00 Yes [facility] ABILIFY 10 mg tablet 2023-0 5-10 00:00: 00 Yes [facility] ABILIFY 10 mg tablet 2023-0 5-10 00:00: 00 Yes [facility] ABILIFY 10 mg tablet 3-0 5-10 00:00: 00 Yes [facility] ABILIFY 10 mg tablet 3-0 5-10 00:00: 00 Yes [facility] ABILIFY 10 mg tablet 3-0 5-10 00:00: 00 Yes [facility] azelastine 137 mcg (0.1 %) nasal spray 2022-0 08-10 00:00: 00 Yes USE 1 TO 2 SPRAYS IN EACH NOSTRIL TWICE DAILY [facility] azelastine 137 mcg (0.1 %) nasal spray 2022-0 08-10 00:00: 00 Yes USE 1 TO 2 SPRAYS IN EACH NOSTRIL TWICE DAILY [facility] azelastine 137 mcg (0.1 %) nasal spray 2022-0 08-10 00:00: 00 Yes USE 1 TO 2 SPRAYS IN EACH NOSTRIL TWICE DAILY [facility] azelastine 137 mcg (0.1 %) nasal spray 2022-0 08-10 00:00: 00 Yes USE 1 TO 2 SPRAYS IN EACH NOSTRIL TWICE DAILY [facility] azelastine 137 mcg (0.1 %) nasal spray 2022-0 08-10 00:00: 00 Yes USE 1 TO 2 SPRAYS IN EACH NOSTRIL TWICE DAILY [facility] azelastine 137 mcg (0.1 %) nasal spray 2022-0 08-10 00:00: 00 Yes USE 1 TO 2 SPRAYS IN EACH NOSTRIL TWICE DAILY [facility] azelastine 137 mcg (0.1 %) nasal spray 08-10 00:00: 00 Yes USE 1 TO 2 SPRAYS IN EACH NOSTRIL TWICE DAILY [facility] azelastine 137 mcg (0.1 %) nasal spray 08-10 00:00: 00 Yes USE 1 TO 2 SPRAYS IN EACH NOSTRIL TWICE DAILY [facility] azelastine 137 mcg (0.1 %) nasal spray 08-10 00:00: 00 Yes USE 1 TO 2 SPRAYS IN EACH NOSTRIL TWICE DAILY [facility] azelastine 137 mcg (0.1 %) nasal spray 08-10 00:00: 00 Yes USE 1 TO 2 SPRAYS IN EACH NOSTRIL TWICE DAILY [facility] azelastine 137 mcg (0.1 %) nasal spray 08-10 00:00: 00 Yes USE 1 TO 2 SPRAYS IN EACH NOSTRIL TWICE DAILY [facility] glimepiride 2 mg tablet 2021-05 00:00: 00 Yes [id number] 2mg Take 1 tablet by mouth 2 (two) times daily before breakfast and dinner. [facility] dapaglifloz in ([facility]) 10 mg tablet 2021-05 00:00: 00 Yes [id number] 10mg Take 1 tablet by mouth in the morning. [facility] semaglutide (OZEMPIC) 1 mg/dose (4 mg/3 mL) PnIj 2021-05 00:00: 00 Yes [id number] 1mg inject 1 mg under the skin weekly. [facility] glimepiride 2 mg tablet 2021-05 00:00: 00 Yes [id number] 2mg Take 1 tablet by mouth 2 (two) times daily before breakfast and dinner. [facility]apaglifloz in ([facility] 10 mg tablet 2021-05 00:00: 00 Yes [id number] 10mg Take 1 tablet by mouth in the morning. [facility] semaglutide (OZEMPIC) 1 mg/dose (4 mg/3 mL) PnIj 2021-05 00:00: 00 Yes [id number] 1mg inject 1 mg under the skin weekly. [facility] glimepiride 2 mg tablet 2021-05 00:00: 00 Yes [id number] 2mg Take 1 tablet by mouth 2 (two) times daily before breakfast and dinner. [facility] dapaglifloz in ([facility]) 10 mg tablet 2021-05 00:00: 00 Yes [id number] 10mg Take 1 tablet by mouth in the morning. [facility] semaglutide (OZEMPIC) 1 mg/dose (4 mg/3 mL) [facility] 2021-05 00:00: 00 Yes [id number] 1mg inject 1 mg under the skin weekly. [facility] glimepiride 2 mg tablet 2021-05 00:00: 00 Yes [id number] 2mg Take 1 tablet by mouth 2 (two) times daily before breakfast and dinner. [facility] dapaglifloz in ([facility] 10 mg tablet 2021-05 00:00: 00 Yes [id number] 10mg Take 1 tablet by mouth in the morning. [facility] semaglutide (OZEMPIC) 1 mg/dose (4 mg/3 mL) Ij 2021-05 00:00: 00 Yes [id number] 1mg inject 1 mg under the skin weekly. [facility] glimepiride 2 mg tablet 2021-05 00:00: 00 Yes [id number] 2mg Take 1 tablet by mouth 2 (two) times daily before breakfast and dinner. [facility] dapaglifloz in ([facility]) 10 mg tablet 2021-05 00:00: 00 Yes [id number] 10mg Take 1 tablet by mouth in the morning. [facility] semaglutide (OZEMPIC) 1 mg/dose (4 mg/3 mL) PnIj 2021-05 00:00: 00 Yes [id number] 1mg inject 1 mg under the skin weekly. [facility] glimepiride 2 mg tablet 2021-05 0-11 00:00: 00 Yes [id number] 2mg Take 1 tablet by mouth 2 (two) times daily before breakfast and dinner. [facility] semaglutide (OZEMPIC) 1 mg/dose (4 mg/3 mL) PnIj 2021-05 0-11 00:00: 00 Yes [id number] 1mg inject 1 mg under the skin weekly. [facility] glimepiride 2 mg tablet 2021-05 0 00:00: 00 10-18 00:00 :00 No [id number] 2mg Take 1 tablet by mouth 2 (two) times daily before breakfast and dinner. [facility] semaglutide (OZEMPIC) 1 mg/dose (4 mg/3 mL) PnIj 2021-05 0 00:00: 00 10-18 00:00 :00 No [id number] 1mg inject 1 mg under the skin weekly. [facility] glimepiride 2 mg tablet 2021-05 0 00:00: 00 10-18 00:00 :00 No [id number] 2mg Take 1 tablet by mouth 2 (two) times daily before breakfast and dinner. [facility] semaglutide (OZEMPIC) 1 mg/dose (4 mg/3 mL) PnIj 2021-05 0 00:00: 00 10-18 00:00 :00 No [id number] 1mg inject 1 mg under the skin weekly. [facility] dapaglifloz in ([facility]) 10 mg tablet 2021-05 0-11 00:00: 00 10-06 00:00 :00 No [id number] 10mg Take 1 tablet by mouth in the morning. [facility] vilazodone 20 mg 2021- 0-10 00:00: 00 Yes [facility] vilazodone 20 mg 2021- 0-10 00:00: 00 Yes [facility] vilazodone 20 mg 2021- 0-10 00:00: 00 Yes [facility] vilazodone 20 mg 2-1 0-10 00:00: 00 Yes [facility] vilazodone 20 mg 2-1 0-10 00:00: 00 Yes [facility] vilazodone 20 mg 2-1 0-10 00:00: 00 Yes [facility] vilazodone 20 mg 2-1 0-10 00:00: 00 10-18 00:00 :00 No [facility] vilazodone 20 mg 2-1 0-10 00:00: 00 10-18 00:00 :00 No [facility] semaglutide (OZEMPIC) 1 mg/dose (4 mg/3 mL) PnIj 08-23 00:00: 00 Yes [id number] 1mg inject 1 mg under the skin weekly. [facility] glimepiride 2 mg tablet 08-23 00:00: 00 Yes [id number] 2mg Take 1 tablet by mouth 2 (two) times daily before breakfast and dinner. [facility] dapaglifloz in (FARXIGA) 10 mg tablet 2021-0 08-23 00:00: 00 Yes [id number] 10mg Take 1 tablet by mouth daily. [facility] semaglutide (OZEMPIC) 1 mg/dose (4 mg/3 mL) PnIj 0 08-23 00:00: 00 Yes [id number] 1mg inject 1 mg under the skin weekly. [facility] glimepiride 2 mg tablet 0 08-23 00:00: 00 Yes [id number] 2mg Take 1 tablet by mouth 2 (two) times daily before breakfast and dinner. [facility] dapaglifloz in (FARXIGA) 10 mg tablet 0 08-23 00:00: 00 Yes [id number] 10mg Take 1 tablet by mouth daily. [facility] semaglutide (OZEMPIC) 1 mg/dose (4 mg/3 mL) PnIj 0 - 00:00: 00 Yes [id number] 1mg inject 1 mg under the skin weekly. [facility] glimepiride 2 mg tablet 0 08-23 00:00: 00 Yes [id number] 2mg Take 1 tablet by mouth 2 (two) times daily before breakfast and dinner. [facility] dapaglifloz in ([facility]) 10 mg tablet 0 08-23 00:00: 00 Yes [id number] 10mg Take 1 tablet by mouth daily. [facility] semaglutide (OZEMPIC) 1 mg/dose (4 mg/3 mL) PnIj 0 08-23 00:00: 00 Yes [id number] 1mg inject 1 mg under the skin weekly. [facility] glimepiride 2 mg tablet 08-23 00:00: 00 Yes [id number] 2mg Take 1 tablet by mouth 2 (two) times daily before breakfast and dinner. [facility] dapaglifloz in ([facility]) 10 mg tablet 08-23 00:00: 00 Yes [id number] 10mg Take 1 tablet by mouth daily. [facility] semaglutide (OZEMPIC) 1 mg/dose (4 mg/3 mL) PnIj 0 08-23 00:00: 00 Yes [id number] 1mg inject 1 mg under the skin weekly. [facility] glimepiride 2 mg tablet 2021-0 08-23 00:00: 00 Yes [id number] 2mg Take 1 tablet by mouth 2 (two) times daily before breakfast and dinner. [facility] dapaglifloz in ([facility]) 10 mg tablet 2021-0 08-23 00:00: 00 Yes [id number] 10mg Take 1 tablet by mouth daily. [facility] semaglutide (OZEMPIC) 1 mg/dose (4 mg/3 mL) PnIj 0 08-23 00:00: 00 Yes [id number] 1mg inject 1 mg under the skin weekly. [facility] glimepiride 2 mg tablet 2021-0 - 00:00: 00 Yes [id number] 2mg Take 1 tablet by mouth 2 (two) times daily before breakfast and dinner. [facility] dapaglifloz in ([facility]) 10 mg tablet 08-23 00:00: 00 Yes [id number] 10mg Take 1 tablet by mouth daily. [facility] glimepiride 2 mg tablet 08-23 00:00: 00 02-22 00:00 :00 No [id number] 2mg Take 1 tablet by mouth 2 (two) times daily before breakfast and dinner. [facility] dapaglifloz in ([facility]) 10 mg tablet 08-23 00:00: 00 02-22 00:00 :00 No [id number] 10mg Take 1 tablet by mouth daily. [facility] semaglutide (OZEMPIC) 1 mg/dose (4 mg/3 mL) Ij 08-23 00:00: 00 02-22 00:00 :00 No [id number] 1mg inject 1 mg under the skin weekly. [facility] glimepiride 2 mg tablet 08-23 00:00: 00 02-22 00:00 :00 No [id number] 2mg Take 1 tablet by mouth 2 (two) times daily before breakfast and dinner. [facility] dapaglifloz in ([facility]) 10 mg tablet 08-23 00:00: 00 02-22 00:00 :00 No [id number] 10mg Take 1 tablet by mouth daily. [facility] semaglutide (OZEMPIC) 1 mg/dose (4 mg/3 mL) PnIj 08-23 00:00: 00 02-22 00:00 :00 No [id number] 1mg inject 1 mg under the skin weekly. [facility] valACYclovi r 500 mg tablet 18 00:00: 00 Yes 500mg Take 500 mg by mouth 2 (two) times daily. [facility] valACYclovi r 500 mg tablet 18 00:00: 00 Yes 500mg Take 500 mg by mouth 2 (two) times daily. [facility] valACYclovi r 500 mg tablet 18 00:00: 00 Yes 500mg Take 500 mg by mouth 2 (two) times daily. [facility] valACYclovi r 500 mg tablet 2021-0 3-18 00:00: 00 Yes 500mg Take 500 mg by mouth 2 (two) times daily. [facility] valACYclovi r 500 mg tablet 2021-0 3-18 00:00: 00 Yes 500mg Take 500 mg by mouth 2 (two) times daily. [facility] valACYclovi r 500 mg tablet 2021-0 318 00:00: 00 Yes 500mg Take 500 mg by mouth 2 (two) times daily. [facility] valACYclovi r 500 mg tablet 2021-0 18 00:00: 00 Yes 500mg Take 500 mg by mouth 2 (two) times daily. [facility] valACYclovi r 500 mg tablet 2021-0 318 00:00: 00 Yes 500mg Take 500 mg by mouth 2 (two) times daily. [facility] valACYclovi r 500 mg tablet 2021-0 18 00:00: 00 Yes 500mg Take 500 mg by mouth 2 (two) times daily. [facility] valACYclovi r 500 mg tablet 2021-0 18 00:00: 00 Yes 500mg Take 500 mg by mouth 2 (two) times daily. [facility] valACYclovi r 500 mg tablet 2021-0 318 00:00: 00 Yes 500mg Take 500 mg by mouth 2 (two) times daily. [facility] valACYclovi r 500 mg tablet 2021-0 318 00:00: 00 Yes 500mg Take 500 mg by mouth 2 (two) times daily. [facility] valACYclovi r 500 mg tablet 2-0 3-18 00:00: 00 Yes 500mg Take 500 mg by mouth 2 (two) times daily. [facility] valACYclovi r 500 mg tablet 2-0 3-18 00:00: 00 Yes 500mg Take 500 mg by mouth 2 (two) times daily. [facility] valACYclovi r 500 mg tablet 2021-0 3-18 00:00: 00 Yes 500mg Take 500 mg by mouth 2 (two) times daily. [facility] valAC[facility] 500 mg tablet 2-0 3-18 00:00: 00 Yes 500mg Take 500 mg by mouth 2 (two) times daily. [facility] valACYclovi r 500 mg tablet 2-0 3-18 00:00: 00 Yes 500mg Take 500 mg by mouth 2 (two) times daily. [facility] valACYclovi r 500 mg tablet 2-0 3-18 00:00: 00 Yes 500mg Take 500 mg by mouth 2 (two) times daily. [facility] valACYclovi r 500 mg tablet 2-0 3-18 00:00: 00 Yes 500mg Take 500 mg by mouth 2 (two) times daily. [facility] valACYclovi r 500 mg tablet 2-0 3-18 00:00: 00 Yes 500mg Take 500 mg by mouth 2 (two) times daily. [facility] valACYclovi r 500 mg tablet 2-0 3-18 00:00: 00 Yes 500mg Take 500 mg by mouth 2 (two) times daily. [facility] valACYclovi r 500 mg tablet 2-0 3-18 00:00: 00 Yes 500mg Take 500 mg by mouth 2 (two) times daily. [facility] valACYclovi r 500 mg tablet 2-0 3-18 00:00: 00 Yes 500mg Take 500 mg by mouth 2 (two) times daily. [facility] VRAYLAR 1.5 mg Cap 2022-0 3-13 00:00: 00 Yes [facility] VRAYLAR 1.5 mg Cap 2022-0 3-13 00:00: 00 Yes [facility] VRAYLAR 1.5 mg Cap 2022-0 3-13 00:00: 00 Yes [facility] VRAYLAR 1.5 mg Cap 2022-0 3-13 00:00: 00 Yes [facility] VRAYLAR 1.5 mg Cap 2022-0 3-13 00:00: 00 Yes [facility] VRAYLAR 1.5 mg Cap 2-0 3-13 00:00: 00 Yes [facility] VRAYLAR 1.5 mg Cap 2-0 3-13 00:00: 00 Yes [facility] VRAYLAR 1.5 mg Cap 2-0 3-13 00:00: 00 Yes [facility] VRAYLAR 1.5 mg Cap 2-0 3-13 00:00: 00 Yes [facility] VRAYLAR 1.5 mg Cap 2-0 3-13 00:00: 00 Yes [facility] VRAYLAR 1.5 mg Cap 2-0 3-13 00:00: 00 Yes [facility] VRAYLAR 1.5 mg Cap 2-0 3-13 00:00: 00 Yes [facility] VRAYLAR 1.5 mg Cap 2-0 3-13 00:00: 00 10-18 00:00 :00 No [facility] VRAYLAR 1.5 mg Cap 2-0 3-13 00:00: 00 10-18 00:00 :00 No [facility] dapaglifloz in ([facility]) 10 mg tablet 2020-05 00:00: 00 08-23 00:00 :00 No [id number] 10mg Take 1 tablet by mouth daily. [facility] glimepiride 2 mg tablet 2020-05 00:00: 00 08-23 00:00 :00 No [id number] 2mg Take 1 tablet by mouth daily with breakfast. [facility] semaglutide (OZEMPIC) 1 mg/dose (4 mg/3 mL) PnIj 2020-05 00:00: 00 08-23 00:00 :00 No [id number] 1mg inject 1 mg under the skin weekly. [facility] dapaglifloz in ([facility]) 10 mg tablet 2020-05 00:00: 00 08-23 00:00 :00 No [id number] 10mg Take 1 tablet by mouth daily. [facility] glimepiride 2 mg tablet 2020-05 00:00: 00 08-23 00:00 :00 No [id number] 2mg Take 1 tablet by mouth daily with breakfast. [facility] semaglutide (OZEMPIC) 1 mg/dose (4 mg/3 mL) PnIj 2020-05 00:00: 00 08-23 00:00 :00 No [id number] 1mg inject 1 mg under the skin weekly. [facility] Lancets (ACCU-CHEK FASTCLIX LANCET DRUM) [facility] 2019-05 00:00: 00 Yes Use to check blood sugar 1X daily. DX:E11.65 [facility] blood sugar diagnostic (ACCU-CHEK GUIDE TEST STRIPS) strip 2019-05 00:00: 00 Yes Use to check blood sugar 1X daily. DX:E11.65 [facility] Blood-Gluco se Meter (ACCU-CHEK GUIDE GLUCOSE METER) [facility] 2019-05 00:00: 00 Yes Use to check blood sugar 1X daily. DX:E11.65 [facility] Lancets (ACCU-CHEK FASTCLIX LANCET DRUM) [facility] 2019-05 00:00: 00 Yes Use to check blood sugar 1X daily. DX:E11.65 [facility] blood sugar diagnostic (ACCU-CHEK GUIDE TEST STRIPS) strip 2019-05 00:00: 00 Yes Use to check blood sugar 1X daily. DX:E11.65 [facility] Blood-Gluco se Meter (ACCU-CHEK GUIDE GLUCOSE METER) [facility] 2019-05 00:00: 00 Yes Use to check blood sugar 1X daily. DX:E11.65 [facility] Lancets (ACCU-CHEK FASTCLIX LANCET DRUM) [facility] 2019-05 00:00: 00 Yes Use to check blood sugar 1X daily. DX:E11.65 [facility] blood sugar diagnostic (ACCU-CHEK GUIDE TEST STRIPS) strip 2019-05 00:00: 00 Yes Use to check blood sugar 1X daily. DX:E11.65 [facility] Blood-Gluco [facility] Meter (ACCU-CHEK GUIDE GLUCOSE METER) [facility] 2019-05 00:00: 00 Yes Use to check blood sugar 1X daily. DX:E11.65 [facility] Lancets (ACCU-CHEK FASTCLIX LANCET DRUM) [facility] 2019-05 00:00: 00 Yes Use to check blood sugar 1X daily. DX:E11.65 [facility] blood sugar diagnostic (ACCU-CHEK GUIDE TEST STRIPS) strip 2019-05 00:00: 00 Yes Use to check blood sugar 1X daily. DX:E11.65 [facility] Blood-Gluco se Meter (ACCU-CHEK GUIDE GLUCOSE METER) [facility] 2019-05 00:00: 00 Yes Use to check blood sugar 1X daily. DX:E11.65 [facility] Lancets (ACCU-CHEK FASTCLIX LANCET DRUM) [facility] 2019-05 00:00: 00 Yes Use to check blood sugar 1X daily. DX:E11.65 [facility] blood sugar diagnostic (ACCU-CHEK GUIDE TEST STRIPS) strip 2019-05 00:00: 00 Yes Use to check blood sugar 1X daily. DX:E11.65 [facility] Blood-Gluco se Meter (ACCU-CHEK GUIDE GLUCOSE METER) [facility] 2019-05 00:00: 00 Yes Use to check blood sugar 1X daily. DX:E11.65 [facility] Lancets (ACCU-CHEK FASTCLIX LANCET DRUM) [facility] 2019-05 00:00: 00 Yes Use to check blood sugar 1X daily. DX:E11.65 [facility] blood sugar diagnostic (ACCU-CHEK GUIDE TEST STRIPS) strip 2019-05 00:00: 00 Yes Use to check blood sugar 1X daily. DX:E11.65 [facility] Blood-Gluco se Meter (ACCU-CHEK GUIDE GLUCOSE METER) [facility] 2019-05 00:00: 00 Yes Use to check blood sugar 1X daily. DX:E11.65 [facility] Lancets (ACCU-CHEK FASTCLIX LANCET DRUM) [facility] 2019-05 00:00: 00 Yes Use to check blood sugar 1X daily. DX:E11.65 [facility] blood sugar diagnostic (ACCU-CHEK GUIDE TEST STRIPS) strip 2019-05 00:00: 00 Yes Use to check blood sugar 1X daily. DX:E11.65 [facility] Blood-Gluco se Meter (ACCU-CHEK GUIDE GLUCOSE METER) [facility] 2019-05 00:00: 00 Yes Use to check blood sugar 1X daily. DX:E11.65 [facility] Lancets (ACCU-CHEK FASTCLIX LANCET DRUM) [facility] 2019-05 00:00: 00 Yes Use to check blood sugar 1X daily. DX:E11.65 [facility] blood sugar diagnostic (ACCU-CHEK GUIDE TEST STRIPS) strip 2019-05 00:00: 00 Yes Use to check blood sugar 1X daily. DX:E11.65 [facility] Blood-Gluco se Meter (ACCU-CHEK GUIDE GLUCOSE METER) [facility] 2019-05 00:00: 00 Yes Use to check blood sugar 1X daily. DX:E11.65 [facility] Lancets (ACCU-CHEK FASTCLIX LANCET DRUM) [facility] 2019-05 00:00: 00 Yes Use to check blood sugar 1X daily. DX:E11.65 [facility] blood sugar diagnostic (ACCU-CHEK GUIDE TEST STRIPS) strip 2019-05 00:00: 00 Yes Use to check blood sugar 1X daily. DX:E11.65 [facility] Blood-Gluco se Meter (ACCU-CHEK GUIDE GLUCOSE METER) [facility] 2019-05 00:00: 00 Yes Use to check blood sugar 1X daily. DX:E11.65 [facility] Lancets (ACCU-CHEK FASTCLIX LANCET DRUM) [facility] 2019-05 00:00: 00 Yes Use to check blood sugar 1X daily. DX:E11.65 [facility] blood sugar diagnostic (ACCU-CHEK GUIDE TEST STRIPS) strip 2019-05 00:00: 00 Yes Use to check blood sugar 1X daily. DX:E11.65 [facility] Blood-Gluco [facility] Meter (ACCU-CHEK GUIDE GLUCOSE METER) [facility] 2019-05 00:00: 00 Yes Use to check blood sugar 1X daily. DX:E11.65 [facility] Lancets (ACCU-CHEK FASTCLIX LANCET DRUM) [facility] 2019-05 00:00: 00 Yes Use to check blood sugar 1X daily. DX:E11.65 [facility] blood sugar diagnostic (ACCU-CHEK GUIDE TEST STRIPS) strip 2019-05 00:00: 00 Yes Use to check blood sugar 1X daily. DX:E11.65 [facility] Blood-Gluco se Meter (ACCU-CHEK GUIDE GLUCOSE METER) [facility] 2019-05 00:00: 00 Yes Use to check blood sugar 1X daily. DX:E11.65 [facility] Lancets (ACCU-CHEK FASTCLIX LANCET DRUM) [facility] 2019-05 00:00: 00 Yes Use to check blood sugar 1X daily. DX:E11.65 [facility] blood sugar diagnostic (ACCU-CHEK GUIDE TEST STRIPS) strip 2019-05 00:00: 00 Yes Use to check blood sugar 1X daily. DX:E11.65 [facility] Blood-Gluco se Meter (ACCU-CHEK GUIDE GLUCOSE METER) [facility] 2019-05 00:00: 00 Yes Use to check blood sugar 1X daily. DX:E11.65 [facility] Lancets (ACCU-CHEK FASTCLIX LANCET DRUM) [facility] 2019-05 00:00: 00 Yes Use to check blood sugar 1X daily. DX:E11.65 [facility] blood sugar diagnostic (ACCU-CHEK GUIDE TEST STRIPS) strip 2019-05 00:00: 00 Yes Use to check blood sugar 1X daily. DX:E11.65 [facility] Blood-Gluco se Meter (ACCU-CHEK GUIDE GLUCOSE METER) [facility] 2019-05 00:00: 00 Yes Use to check blood sugar 1X daily. DX:E11.65 [facility] Lancets (ACCU-CHEK FASTCLIX LANCET DRUM) [facility] 2019-05 00:00: 00 Yes Use to check blood sugar 1X daily. DX:E11.65 [facility] blood sugar diagnostic (ACCU-CHEK GUIDE TEST STRIPS) strip 2019-05 00:00: 00 Yes Use to check blood sugar 1X daily. DX:E11.65 [facility] Blood-Gluco se Meter (ACCU-CHEK GUIDE GLUCOSE METER) [facility] 2019-05 00:00: 00 Yes Use to check blood sugar 1X daily. DX:E11.65 [facility] Lancets (ACCU-CHEK FASTCLIX LANCET DRUM) [facility] 2019-05 00:00: 00 Yes Use to check blood sugar 1X daily. DX:E11.65 [facility] blood sugar diagnostic (ACCU-CHEK GUIDE TEST STRIPS) strip 2019-05 00:00: 00 Yes Use to check blood sugar 1X daily. DX:E11.65 [facility] Blood-Gluco se Meter (ACCU-CHEK GUIDE GLUCOSE METER) [facility] 2019-05 00:00: 00 Yes Use to check blood sugar 1X daily. DX:E11.65 [facility] Lancets (ACCU-CHEK FASTCLIX LANCET DRUM) [facility] 2019-05 00:00: 00 Yes Use to check blood sugar 1X daily. DX:E11.65 [facility] blood sugar diagnostic (ACCU-CHEK GUIDE TEST STRIPS) strip 2019-05 00:00: 00 Yes Use to check blood sugar 1X daily. DX:E11.65 [facility] Blood-Gluco se Meter (ACCU-CHEK GUIDE GLUCOSE METER) [facility] 2019-05 00:00: 00 Yes Use to check blood sugar 1X daily. DX:E11.65 [facility] Lancets (ACCU-CHEK FASTCLIX LANCET DRUM) [facility] 2019-05 00:00: 00 Yes Use to check blood sugar 1X daily. DX:E11.65 [facility] blood sugar diagnostic (ACCU-CHEK GUIDE TEST STRIPS) strip 2019-05 00:00: 00 Yes Use to check blood sugar 1X daily. DX:E11.65 [facility] Blood-Gluco se Meter (ACCU-CHEK GUIDE GLUCOSE METER) [facility] 2019-05 00:00: 00 Yes Use to check blood sugar 1X daily. DX:E11.65 [facility] Lancets (ACCU-CHEK FASTCLIX LANCET DRUM) [facility] 2019-05 00:00: 00 Yes Use to check blood sugar 1X daily. DX:E11.65 [facility] blood sugar diagnostic (ACCU-CHEK GUIDE TEST STRIPS) strip 2019-05 00:00: 00 Yes Use to check blood sugar 1X daily. DX:E11.65 [facility] Blood-Gluco se Meter (ACCU-CHEK GUIDE GLUCOSE METER) [facility] 2019-05 00:00: 00 Yes Use to check blood sugar 1X daily. DX:E11.65 [facility] Lancets (ACCU-CHEK FASTCLIX LANCET DRUM) [facility] 2019-05 00:00: 00 Yes Use to check blood sugar 1X daily. DX:E11.65 [facility] blood sugar diagnostic (ACCU-CHEK GUIDE TEST STRIPS) strip 2019-05 00:00: 00 Yes Use to check blood sugar 1X daily. DX:E11.65 [facility] Blood-Gluco se Meter (ACCU-CHEK GUIDE GLUCOSE METER) [facility] 2019-05 00:00: 00 Yes Use to check blood sugar 1X daily. DX:E11.65 [facility] Lancets (ACCU-CHEK FASTCLIX LANCET DRUM) [facility] 2019-05 00:00: 00 Yes Use to check blood sugar 1X daily. DX:E11.65 [facility] blood sugar diagnostic (ACCU-CHEK GUIDE TEST STRIPS) strip 2019-05 00:00: 00 Yes Use to check blood sugar 1X daily. DX:E11.65 [facility] Blood-Gluco se Meter (ACCU-CHEK GUIDE GLUCOSE METER) [facility] 2019-05 00:00: 00 Yes Use to check blood sugar 1X daily. DX:E11.65 [facility] Lancets (ACCU-CHEK FASTCLIX LANCET DRUM) [facility] 2019-05 00:00: 00 Yes Use to check blood sugar 1X daily. DX:E11.65 [facility] blood sugar diagnostic (ACCU-CHEK GUIDE TEST STRIPS) strip 2019-05 00:00: 00 Yes Use to check blood sugar 1X daily. DX:E11.65 [facility] Blood-Gluco se Meter (ACCU-CHEK GUIDE GLUCOSE METER) [facility] 2019-05 00:00: 00 Yes Use to check blood sugar 1X daily. DX:E11.65 [facility] Lancets (ACCU-CHEK FASTCLIX LANCET DRUM) [facility] 2019-05 00:00: 00 Yes Use to check blood sugar 1X daily. DX:E11.65 [facility] blood sugar diagnostic (ACCU-CHEK GUIDE TEST STRIPS) strip 2019-05 00:00: 00 Yes Use to check blood sugar 1X daily. DX:E11.65 [facility] Blood-Gluco se Meter (ACCU-CHEK GUIDE GLUCOSE METER) [facility] 2019-05 00:00: 00 Yes Use to check blood sugar 1X daily. DX:E11.65 [facility] Lancets (ACCU-CHEK FASTCLIX LANCET DRUM) [facility] 2019-05 00:00: 00 Yes Use to check blood sugar 1X daily. DX:E11.65 [facility] blood sugar diagnostic (ACCU-CHEK GUIDE TEST STRIPS) strip 2019-05 00:00: 00 Yes Use to check blood sugar 1X daily. DX:E11.65 [facility] Blood-Gluco se Meter (ACCU-CHEK GUIDE GLUCOSE METER) [facility] 2019-05 00:00: 00 Yes Use to check blood sugar 1X daily. DX:E11.65 [facility] Lancets (ACCU-CHEK FASTCLIX LANCET DRUM) [facility] 2019-05 00:00: 00 Yes Use to check blood sugar 1X daily. DX:E11.65 [facility] blood sugar diagnostic (ACCU-CHEK GUIDE TEST STRIPS) strip 2019-05 00:00: 00 Yes Use to check blood sugar 1X daily. DX:E11.65 [facility] Blood-Gluco se Meter (ACCU-CHEK GUIDE GLUCOSE METER) [facility] 2019-05 00:00: 00 Yes Use to check blood sugar 1X daily. DX:E11.65 [facility] atorvastati n 40 mg tablet 2019-05 10:23: 31 Yes 40mg Take 40 mg by mouth at bedtime. [facility] atorvastati n 40 mg tablet 2019-05 10:23: 31 Yes 40mg Take 40 mg by mouth at bedtime. [facility] atorvastati n 40 mg tablet 2019-05 10:23: 31 Yes 40mg Take 40 mg by mouth at bedtime. [facility] atorvastati n 40 mg tablet 2019-05 10:23: 31 Yes 40mg Take 40 mg by mouth at bedtime. [facility] atorvastati n 40 mg tablet 2019-05 10:23: 31 Yes 40mg Take 40 mg by mouth at bedtime. [facility] atorvastati n 40 mg tablet 2019-05 10:23: 31 Yes 40mg Take 40 mg by mouth at bedtime. [facility] atorvastati n 40 mg tablet 2019-05 10:23: 31 Yes 40mg Take 40 mg by mouth at bedtime. [facility] atorvastati n 40 mg tablet 2019-05 10:23: 31 Yes 40mg Take 40 mg by mouth at bedtime. [facility] atorvastati n 40 mg tablet 2019-05 10:23: 31 Yes 40mg Take 40 mg by mouth at bedtime. [facility] atorvastati n 40 mg tablet 2019-05 10:23: 31 Yes 40mg Take 40 mg by mouth at bedtime. [facility] atorvastati n 40 mg tablet 2019-05 10:23: 31 Yes 40mg Take 40 mg by mouth at bedtime. [facility] atorvastati n 40 mg tablet 2019-05 10:23: 31 Yes 40mg Take 40 mg by mouth at bedtime. [facility] atorvastati n 40 mg tablet 2019-05 10:23: 31 Yes 40mg Take 40 mg by mouth at bedtime. [facility] ezetimibe 10 mg tablet 2019-05 10:23: 16 Yes 10mg Take 10 mg by mouth daily. [facility] ezetimibe 10 mg tablet 2019-05 10:23: 16 Yes 10mg Take 10 mg by mouth daily. [facility] ezetimibe 10 mg tablet 2019-05 10:23: 16 Yes 10mg Take 10 mg by mouth daily. [facility] ezetimibe 10 mg tablet 2019-05 10:23: 16 Yes 10mg Take 10 mg by mouth daily. [facility] ezetimibe 10 mg tablet 2019-05 10:23: 16 Yes 10mg Take 10 mg by mouth daily. [facility] ezetimibe 10 mg tablet 2019-05 10:23: 16 Yes 10mg Take 10 mg by mouth daily. [facility] ezetimibe 10 mg tablet 2019-05 10:23: 16 Yes 10mg Take 10 mg by mouth daily. [facility] ezetimibe 10 mg tablet 2019-05 10:23: 16 Yes 10mg Take 10 mg by mouth daily. [facility] ezetimibe 10 mg tablet 2019-05 10:23: 16 Yes 10mg Take 10 mg by mouth daily. [facility] ezetimibe 10 mg tablet 2019-05 10:23: 16 Yes 10mg Take 10 mg by mouth daily. [facility] ezetimibe 10 mg tablet 2019-05 10:23: 16 Yes 10mg Take 10 mg by mouth daily. [facility] ezetimibe 10 mg tablet 2019-1 05-16 10:23: 16 Yes 10mg Take 10 mg by mouth daily. [facility] ezetimibe 10 mg tablet 2019-1 - 10:23: 16 Yes 10mg Take 10 mg by mouth daily. [facility] LISINOPRIL ORAL 2020-0 2-17 13:16: 53 Yes Take by mouth. [facility] LISINOPRIL ORAL 2020-0 2-17 13:16: 53 Yes Take by mouth. [facility] LISINOPRIL ORAL 2020-0 2-17 13:16: 53 Yes Take by mouth. [facility] LISINOPRIL ORAL 2020-0 2-17 13:16: 53 Yes Take by mouth. [facility] LISINOPRIL ORAL 2020-0 2-17 13:16: 53 Yes Take by mouth. [facility] LISINOPRIL ORAL 2020-0 2-17 13:16: 53 Yes Take by mouth. [facility] LISIN[facility] ORAL 2020-0 2-17 13:16: 53 Yes Take by mouth. [facility] LISINOPRIL ORAL 2020-0 2-17 13:16: 53 Yes Take by mouth. [facility] LISINOPRIL ORAL 2020-0 2-17 13:16: 53 Yes Take by mouth. [facility] LISINOPRIL ORAL 2020-0 2-17 13:16: 53 Yes Take by mouth. [facility] LISINOPRIL ORAL 2020-0 2-17 13:16: 53 Yes Take by mouth. [facility] LISINOPRIL ORAL 2020-0 2-17 13:16: 53 Yes Take by mouth. [facility] LISINOPRIL ORAL 2020-0 2-17 13:16: 53 Yes Take by mouth. [facility] omeprazole 40 mg capsule 2020-0 2-06 00:00: 00 Yes TK 1 C PO D [facility] omeprazole 40 mg capsule 2020-0 2-06 00:00: 00 Yes TK 1 C PO D [facility] omeprazole 40 mg capsule 2020-0 2-06 00:00: 00 Yes TK 1 C PO D [facility] omeprazole 40 mg capsule 2020-0 2-06 00:00: 00 Yes TK 1 C PO D [facility] omeprazole 40 mg capsule 2020-0 2-06 00:00: 00 Yes TK 1 C PO D [facility] omeprazole 40 mg capsule 2020-0 2-06 00:00: 00 Yes TK 1 C PO D [facility] omeprazole 40 mg capsule 2020-0 2-06 00:00: 00 Yes TK 1 C PO D [facility] omeprazole 40 mg capsule 2020-0 2-06 00:00: 00 Yes TK 1 C PO D [facility] omeprazole 40 mg capsule 2020-0 2-06 00:00: 00 Yes TK 1 C PO D [facility] omeprazole 40 mg capsule 2020-0 2-06 00:00: 00 Yes TK 1 C PO D [facility] omeprazole 40 mg capsule 2020-0 2-06 00:00: 00 Yes TK 1 C PO D [facility] omeprazole 40 mg capsule 2020-0 2-06 00:00: 00 Yes TK 1 C PO D [facility] omeprazole 40 mg capsule 2020-0 2-06 00:00: 00 Yes TK 1 C PO D [facility] omeprazole 40 mg capsule 2020-0 2-06 00:00: 00 - 00:00 :00 No TK 1 C PO D [facility] omeprazole 40 mg capsule 2020-0 2-06 00:00: 00 - 00:00 :00 No TK 1 C PO D [facility] haloperidol 5 mg tablet 2020-0 1-30 00:00: 00 Yes [facility] haloperidol 5 mg tablet 2020-0 1-30 00:00: 00 Yes [facility] haloperidol 5 mg tablet 2020-0 1-30 00:00: 00 Yes [facility] haloperidol 5 mg tablet 2020-0 1-30 00:00: 00 Yes [facility] haloperidol 5 mg tablet 2020-0 1-30 00:00: 00 Yes [facility] haloperidol 5 mg tablet 2020-0 30 00:00: 00 Yes [facility] haloperidol 5 mg tablet 2020-0 06-13 00:00: 00 Yes [facility] haloperidol 5 mg tablet 2020-0 06-13 00:00: 00 Yes [facility] haloperidol 5 mg tablet 2020-0 06-13 00:00: 00 Yes [facility] haloperidol 5 mg tablet 2020-0 06-13 00:00: 00 Yes [facility] haloperidol 5 mg tablet 2019-0 06-13 00:00: 00 Yes [facility] haloperidol 5 mg tablet 2019-0 06-13 00:00: 00 Yes [facility] haloperidol 5 mg tablet 2019-0 06-13 00:00: 00 Yes [facility] haloperidol 5 mg tablet 2019-0 06-13 00:00: 00 10-18 00:00 :00 No [facility] haloperidol 5 mg tablet 2019-0 06-13 00:00: 00 10-18 00:00 :00 No [facility] ABILIFY 15 mg tablet 2019-0 06-12 00:00: 00 Yes TK 1 T PO D [facility] benztropine 0.5 mg tablet 2019-0 06-12 00:00: 00 Yes [facility] ABILIFY 15 mg tablet 2020-0 06-12 00:00: 00 Yes TK 1 T PO D [facility] benztropine 0.5 mg tablet 2019-0 06-12 00:00: 00 Yes [facility] ABILIFY 15 mg tablet 2020-0 06-12 00:00: 00 Yes TK 1 T PO D [facility] benztropine 0.5 mg tablet 2020-0 06-12 00:00: 00 Yes [facility] ABILIFY 15 mg tablet 2020-0 06-12 00:00: 00 Yes TK 1 T PO D [facility] benztropine 0.5 mg tablet 2020-0 [...] 1 T PO D [facility] benztropine 0.5 mg tablet 2020-0 [...] 29 00:00: 00 Yes [facility] ABILIFY 15 mg tablet 2020-0 06-12 00:00: 00 Yes TK 1 T PO D [facility] benztropine 0.5 mg tablet 2019-0 06-12 00:00: 00 Yes [facility] ABILIFY 15 mg tablet 2019-0 06-12 00:00: 00 Yes TK 1 T PO D [facility] benztropine 0.5 mg tablet 2019-0 06-12 00:00: 00 Yes [facility] ABILIFY 15 mg tablet 2019-0 06-12 00:00: 00 Yes TK 1 T PO D [facility] benztropine 0.5 mg tablet 2019-0 06-12 00:00: 00 Yes [facility] ABILIFY 15 mg tablet 2019-0 06-12 00:00: 00 Yes TK 1 T PO D [facility] benztropine 0.5 mg tablet 0 06-12 00:00: 00 Yes [facility] ABILIFY 15 mg tablet 2019-0 06-12 00:00: 00 Yes TK 1 T PO D [facility] benztropine 0.5 mg tablet 2019-0 06-12 00:00: 00 Yes [facility] ABILIFY 15 mg tablet 2019-0 06-12 00:00: 00 Yes TK 1 T PO D [facility] benztropine 0.5 mg tablet 0 06-12 00:00: 00 Yes [facility] ABILIFY 15 mg tablet 2019-0 06-12 00:00: 00 10-18 00:00 :00 No TK 1 T PO D [facility] ABILIFY 15 mg tablet 2019-0 06-12 00:00: 00 10-18 00:00 :00 No TK 1 T PO D [facility] hydrOXYzine 25 mg tablet 2018-05 00:00: 00 Yes TK 1 T PO BID [facility] hydrOXYzine 25 mg tablet 2018-05 00:00: 00 Yes TK 1 T PO BID [facility] hydrOXYzine 25 mg tablet 2018-05 00:00: 00 Yes TK 1 T PO BID [facility] hydrOXYzine 25 mg tablet 2018-05 00:00: 00 Yes TK 1 T PO BID [facility] hydrOXYzine 25 mg tablet 2018-05 00:00: 00 Yes TK 1 T PO BID [facility] hydrOXYzine 25 mg tablet 2018-05 00:00: 00 Yes TK 1 T PO BID [facility] hydrOXYzine 25 mg tablet 2018-05 00:00: 00 Yes TK 1 T PO BID [facility] hydrOXYzine 25 mg tablet 2018-05 00:00: 00 Yes TK 1 T PO BID [facility] hydrOXYzine 25 mg tablet 2018-05 00:00: 00 Yes TK 1 T PO BID [facility] hydrOXYzine 25 mg tablet 2018-05 00:00: 00 Yes TK 1 T PO BID [facility] hydrOXYzine 25 mg tablet 2018-05 00:00: 00 Yes TK 1 T PO BID [facility] hydrOXYzine 25 mg tablet 2018-05 00:00: 00 Yes TK 1 T PO BID [facility] hydrOXYzine 25 mg tablet 2018-05 00:00: 00 Yes TK 1 T PO BID [facility] hydrOXYzine 25 mg tablet 2018-05 00:00: 00 10-18 00:00 :00 No TK 1 T PO BID [facility] hydrOXYzine 25 mg tablet 2018-05 00:00: 00 10-18 00:00 :00 No TK 1 T PO BID [facility] Ketoprofen 200 mg C24P 2018-05 00:00: 00 Yes TK 1 C PO ONCE D PRN [facility] Ketoprofen 200 mg C24P 2018-05 00:00: 00 Yes TK 1 C PO ONCE D PRN [facility] Ketoprofen 200 mg C24P 2018-05 00:00: 00 Yes TK 1 C PO ONCE D PRN [facility] Ketoprofen 200 mg C24P 2019- 2 00:00: 00 Yes TK 1 C PO ONCE D PRN [facility] Ketoprofen 200 mg C24P 2019-1 2 00:00: 00 Yes TK 1 C PO ONCE D PRN [facility] Ketoprofen 200 mg C24P 2019- 2 00:00: 00 Yes TK 1 C PO ONCE D PRN [facility] Ketoprofen 200 mg C24P 2019- 2 00:00: 00 Yes TK 1 C PO ONCE D PRN [facility] Ketoprofen 200 mg C24P 2019-07-08 00:00: 00 Yes TK 1 C PO ONCE D PRN [facility] Ketoprofen 200 mg C24P 2019-07-08 00:00: 00 Yes TK 1 C PO ONCE D PRN [facility] Ketoprofen 200 mg C24P 2019- 2 00:00: 00 Yes TK 1 C PO ONCE D PRN [facility] Ketoprofen 200 mg C24P 2019-07-08 00:00: 00 Yes TK 1 C PO ONCE D PRN [facility] Ketoprofen 200 mg C24P 2019-07-08 00:00: 00 Yes TK 1 C PO ONCE D PRN [facility] Ketoprofen 200 mg C24P 2018-07-08 00:00: 00 Yes TK 1 C PO ONCE D PRN [facility] Ketoprofen 200 mg C24P 2019- 2 00:00: 00 Yes TK 1 C PO ONCE D PRN [facility] Ketoprofen 200 mg C24P 2019-1 2 00:00: 00 Yes TK 1 C PO ONCE D PRN [facility] Ketoprofen 200 mg C24P 2019-1 2 00:00: 00 Yes TK 1 C PO ONCE D PRN [facility] Ketoprofen 200 mg C24P 2019-1 2 00:00: 00 Yes TK 1 C PO ONCE D PRN [facility] Ketoprofen 200 mg C24P 2019- 2 00:00: 00 Yes TK 1 C PO ONCE D PRN [facility] Ketoprofen 200 mg C24P 2018-05 00:00: 00 Yes TK 1 C PO ONCE D PRN [facility] Ketoprofen 200 mg C24P 2018-05 00:00: 00 Yes TK 1 C PO ONCE D PRN [facility] Ketoprofen 200 mg C24P 2018-05 00:00: 00 Yes TK 1 C PO ONCE D PRN [facility] Ketoprofen 200 mg C24P 2018-05 00:00: 00 Yes TK 1 C PO ONCE D PRN [facility] Ketoprofen 200 mg C24P 2018-05 00:00: 00 Yes TK 1 C PO ONCE D PRN [facility] Ketoprofen 200 mg C24P 2018-05 00:00: 00 Yes TK 1 C PO ONCE D PRN [facility] Immunizations Ordered Immunization Name Filled Immunization Name Date Status Comments Source Influenza Virus Vaccine 2020-01-18 00:00:00 Completed [facility] Influenza Virus Vaccine 2020-01-18 00:00:00 Completed [facility] Influenza Virus Vaccine 2020-01-18 00:00:00 Completed [facility] Influenza Virus Vaccine 2020-01-18 00:00:00 Completed [facility] Influenza Virus Vaccine 2020-01-18 00:00:00 Completed [facility] Influenza Virus Vaccine 2020-01-18 00:00:00 Completed [facility] Influenza Virus Vaccine 2020-01-18 00:00:00 Completed [facility] Influenza Virus Vaccine 2020-01-18 00:00:00 Completed [facility] Influenza Virus Vaccine 2020-01-18 00:00:00 Completed [facility] Influenza Virus Vaccine 2020-01-18 00:00:00 Completed [facility] Influenza Virus Vaccine 2020-01-18 00:00:00 Completed [facility] Influenza Virus Vaccine 2020-01-18 00:00:00 Completed [facility] Influenza Virus Vaccine 2020-01-18 00:00:00 Completed [facility] Influenza Virus Vaccine 2020-01-18 00:00:00 Completed [facility] Influenza Virus Vaccine 2020-01-18 00:00:00 Completed [facility] Influenza Virus Vaccine 2020-01-18 00:00:00 Completed [facility] Influenza Virus Vaccine Unknown Completed [facility] Influenza Virus Vaccine Unknown Completed [facility] Influenza Virus Vaccine Unknown Completed [facility] Influenza Virus Vaccine Unknown Completed [facility] Influenza Virus Vaccine Unknown Completed [facility] Influenza Virus Vaccine Unknown Completed [facility] Influenza Virus Vaccine Unknown Completed [facility] Influenza Virus Vaccine Unknown Completed [facility] Vital Signs Vital Name Observation Time Observation Value Comments S ource Heart rate 2023-04-28 17:35:00 94 /min [facility] Body height 2023-04-28 17:35:00 172.7 cm [facility] Body weight 2023-04-28 17:35:00 136.261 kg [facility] BMI 2023-04-28 17:35:00 45.68 kg/m2 [facility] Oxygen saturation in Arterial blood by Pulse oximetry 2023-04-28 17:35:00 94 /min [facility] Systolic blood pressure 2022-10-18 18:09:00 123 mm[Hg] [facility] Diastolic blood pressure 2022-10-18 18:09:00 94 mm[Hg] [facility] Heart rate 2022-10-18 18:09:00 98 /min [facility] Body height 2022-10-18 18:09:00 172.7 cm [facility] Body weight 2022-10-18 18:09:00 135.353 kg [facility] BMI 2022-10-18 18:09:00 45.37 kg/m2 [facility] Systolic blood pressure 2022-02-22 17:29:00 128 mm[Hg] [facility] Diastolic blood pressure 2022-02-22 17:29:00 89 mm[Hg] [facility] hospital Heart rate 2022-02-22 17:29:00 105 /min [facility] Body height 2022-02-22 17:29:00 172.7 cm [facility] Body weight 2022-02-22 17:29:00 133.811 kg [facility] BMI 2022-02-22 17:29:00 44.85 kg/m2 [facility] Oxygen saturation in Arterial blood by Pulse oximetry 2022-02-22 17:29:00 94 /min [facility] Heart rate 2021-08-23 18:15:00 112 /min [facility] Body height 2021-08-23 18:15:00 172.7 cm [facility] Body weight 2021-08-23 18:15:00 134.718 kg [facility] BMI 2021-08-23 18:15:00 45.16 kg/m2 [facility] Oxygen saturation in Arterial blood by Pulse oximetry 2021-08-23 18:15:00 91 /min [facility] Procedures Procedure Date / Time Performed Performing Clinicia n Source POCT HEMOGLOBIN A1C TEST 2023-04-28 17:37:00 Suzanna Calvillo [facility] ASSIGNMENT OF BENEFITS 2023-04-28 17:03:13 Docto r Unassigned, [place] [facility] POCT HEMOGLOBIN A1C TEST 2022-10-18 18:12:00 Suzanna Calvillo [facility] POCT HEMOGLOBIN A1C TEST 2022-02-22 17:33:00 Janna Hernandes [facility] ASSIGNMENT OF BENEFITS 2022-02-22 17:18:51 Docto r Unassigned, [place] [facility] POCT HEMOGLOBIN A1C TEST 2021-08-23 18:20:00 Ineg Caba [facility] Encounters Start Date/Time End Date/Time Encounter Type Admission Type Attending Clinicians Care Facility Care Department Encounter ID Source 2023-08-25 13:00:00 2023-08-25 13:00:00 Outpatient R SUZANNA CALVILLO [facility] [id number] [facility] 2023-07-18 00:00:00 2023-07-18 00:00:00 [facility]phone [facility] [id number] 350.1.13.10 4.2.7.2.686 [id number] 220 [id number] [facility] 2023-07-05 00:00:00 2023-07-05 00:00:00 [facility] [id number] 350.1.13.10 4.2.7.2.686 [id number] 220 [id number] [facility] 2023-06-21 00:00:00 2023-06-21 00:00:00 [facility] [id number] 350.1.13.10 4.2.7.2.686 [id number] 220 [id number] [facility] 2023-06-19 00:00:00 2023-06-19 00:00:00 Telephone [facility] [id number] 350.1.13.10 4.2.7.2.686 [id number] [facility] 2023-05-22 00:00:00 2023-05-22 00:00:00 Telephone [facility] [id number] 350.1.13.10 4.2.7.2.686 [id number] [facility] 2023-04-28 11:30:00 2023-04-28 14:07:35 Outpatient R SUZANNA CALVILLO [facility] [id number] [facility] 2023-04-28 11:30:00 2023-04-28 14:07:35 Office Visit Karli [facility] BIRD?[facility] 1.2.840.114 350.1.13.10 4.2.7.2.686 [id number] 220 [id number] [facility] 2023-04-28 00:00:00 2023-04-28 00:00:00 Orders Only Doctor Unassigned, [place] [facility] 1.840.114 350.1.13.10 4.2.7.2.686 [id number] [id number] [facility] 2023-03-12 00:00:00 2023-03-12 00:00:00 Outpatient GC_[id number] diyala_S PRIV PRIV [id number] [facility] 2023-01-31 15:30:00 2023-01-31 15:30:00 Outpatient R GOODSUZANNA DUNCAN [facility] [id number] [facility] 2023-01-24 13:00:00 2023-01-24 13:00:00 Outpatient R GOODDAKOTA [facility] [id number] [facility] 2022-10-24 00:00:00 2022-10-24 00:00:00 Refill [facility] 1.840.114 350.1.13.10 4.2.7.2.686 [id number] [facility] 2022-10-18 13:00:00 2022-10-18 13:47:23 Outpatient R GOODDAKOTA [facility] [id number] [facility] 2022-10-18 13:00:00 2022-10-18 13:47:23 Office Visit Karli [facility]?TOSHIAVicki [facility] 1.840.114 350.1.13.10 4.2.7.2.686 [id number] 220 [id number] [facility] 2022-10-06 00:00:00 2022-10-06 00:00:00 [facility] 1.840.114 350.1.13.10 4.2.7.2.686 [id number] [facility] 2022-08-09 14:00:00 2022-08-09 14:00:00 Outpatient R GRETA [facility] [id number] [facility] 2022-08-08 00:00:00 2022-08-08 00:00:00 Refill Greta [facility] 1.840.114 350.1.13.10 4.2.7.2.686 [id number] [facility] 2022-03-17 00:00:00 2022-03-17 00:00:00 Telephone Team, [facility] 1..114 350.1.13.10 4.2.7.2.686 [id number] [facility] 2022-02-22 13:00:00 2022-02-22 13:43:27 Outpatient R GRETA [facility] [id number] [facility] 2022-02-22 13:00:00 2022-02-22 13:43:27 Office Visit Greta [facility] [id number] 350.1.13.10 4.2.7.2.686 [id number] [facility] 2022-02-22 00:00:00 2022-02-22 00:00:00 Orders Only Doctor Unassigned, [place] [facility] 1.20.114 350.1.13.10 4.2.7.2.686 [id number] [facility] 2022-02-22 00:00:00 2022-02-22 00:00:00 Telephone Hernandes, [facility] 1.2840.114 350.1.13.10 4.2.7.2.686 [id number] 220 [id number] [facility] 2021-11-30 16:00:00 2021-11-30 16:00:00 Outpatient R JANNA HERNANDES [facility] [id number] [facility] 2021-11-23 00:00:00 2021-11-23 00:00:00 Telephone Rosales [facility] 1.2840.114 350.1.13.10 4.2.7.2.686 [id number] [facility] 2021-08-26 00:00:00 2021-08-26 00:00:00 Telephone Rsoales [facility] BIRD?[facility] 1.2840.114 350.1.13.10 4.2.7.2.686 [id number] [facility] 2021-08-24 00:00:00 2021-08-24 00:00:00 Telephone Rosales [facility]IRD?[facility] 1.2840.114 350.1.13.10 4.2.7.2.686 [id number] [facility] 2021-08-23 13:30:00 2021-08-23 14:04:25 Outpatient R ROSALES [facility] [id number] [facility] 2021-08-23 13:30:00 2021-08-23 14:04:25 Office Visit Rosales [facility]IRD[facility] 1.2840.114 350.1.13.10 4.2.7.2.686 [id number] [facility] 2021-08-20 00:00:00 2021-08-20 00:00:00 Telephone [facility] 1.2840.114 350.1.13.10 4.2.7.2.686 [id number] [facility] 2021-08-02 11:30:00 2021-08-02 11:30:00 Outpatient R JANY [facility] [id number] [facility] 2021-08-02 11:30:00 2021-08-02 11:30:00 Outpatient R ROSALES [facility] [id number] [facility] 2021-08-02 00:00:00 2021-08-02 00:00:00 Telephone [facility] 1..840.114 350.1.13.10 4.2.7.2.686 [id number] [facility] 2021-07-07 00:00:00 2021-07-07 00:00:00 Orders Only Doctor Unassigned, [place] [facility] 1..840.114 350.1.13.10 4.2.7.2.686 [id number] [facility] 2021-05-25 00:00:00 2021-05-25 00:00:00 Telephone [facility] 1..840.114 350.1.13.10 4.2.7.2.686 [id number] [facility] 2021-04-21 00:00:00 2021-04-21 00:00:00 Telephone [facility] 1..840.114 350.1.13.10 4.2.7.2.686 [id number] [facility] 2021-03-30 08:45:00 2021-03-30 15:54:44 Outpatient R ROSALES [facility] [id number] [facility] 2021-03-30 08:45:00 2021-03-30 08:45:00 Outpatient R INGE CABA [facility] [id number] [facility] 2021-03-29 13:30:00 2021-03-29 13:30:00 Outpatient R INGE CABA [facility] [id number] [facility] 2021-03-29 11:45:47 2021-03-29 12:15:47 Office Visit Rosales [facility] 1.2.840.114 350.1.13.10 4.2.7.2.686 [id number] [facility] 2021-03-29 11:30:00 2021-03-29 11:30:00 Outpatient R JANY [facility] [id number] [facility] 2021-03-29 00:00:00 2021-03-29 00:00:00 Telephone Rosales [facility]Y [facility] 1.2.840.114 350.1.13.10 4.2.7.2.686 [id number] 220 [id number] [facility] 2021-03-14 00:00:00 2021-03-14 00:00:00 Refill [facility] BUILDING 1.2.840.114 350.1.13.10 4.2.7.2.686 [id number] 220 [id number] [facility] 2021-02-22 10:30:00 2021-02-22 10:30:00 Outpatient R [facility] [id number] [facility] 2021-01-25 13:00:00 2021-01-25 13:00:00 Outpatient R [facility] [id number] [facility] 2021-01-22 00:00:00 2021-01-22 00:00:00 Telephone Inge Caba [facility] 1.2.840.114 350.1.13.10 4.2.7.2.686 [id number] 220 [id number] [facility] 2020-10-05 13:45:00 2020-10-05 13:45:00 Outpatient R [facility] [id number] [facility] 2020-10-05 13:45:00 2020-10-05 13:45:00 Outpatient R [facility] [id number] [facility] 2020-09-14 11:00:00 2020-09-14 11:00:00 Outpatient R [facility] [id number] [facility] 2020-09-14 09:57:24 2020-09-14 10:54:01 Office Visit [facility]ales [facility] 1..840.114 350.1.13.10 4.2.7.2.686 [id number] 220 [id number] [facility] 2020-09-14 10:00:00 2020-09-14 10:00:00 Outpatient R [facility] [id number] [facility] 2020-09-11 00:00:00 2020-09-11 00:00:00 Orders Only Doctor Unassigned, [place] [facility] 1..840.114 350.1.13.10 4.2.7.2.686 [id number] 009 [id number] [facility] 2020-09-08 00:00:00 2020-09-08 00:00:00 Telephone [facility] 1.2.840.114 350.1.13.10 4.2.7.2.686 [id number] 220 [id number] [facility] 2020-09-08 00:00:00 2020-09-08 00:00:00 Telephone Inge Caba [facility] 1.2.840.114 350.1.13.10 4.2.7.2.686 [id number] 220 [id number] [facility] 2020-07-15 00:00:00 2020-07-15 00:00:00 [facility] 1.2.840.114 350.1.13.10 4.2.7.2.686 [id number] 220 [id number] [facility] 2020-05-27 00:00:00 2020-05-27 00:00:[address] [facility] [place] [place] 1.2.840.114 350.1.13.10 4.2.7.2.686 [id number] 220 [id number] [facility] 2020-04-16 00:00:00 2020-04-16 00:00:00 Refill [facility] 1.2.840.114 350.1.13.10 4.2.7.2.686 [id number] 220 [id number] 2020-04-16 00:00:00 2020-04-16 00:00:[address] [facility] [place] [place] 1.2.840.114 350.1.13.10 4.2.7.2.686 [id number] 220 [id number] [facility] 2020-04-03 12:00:00 2020-04-03 12:00:00 Outpatient [facility] [id number] [facility] 2020-03-26 00:00:00 2020-03-26 00:00:00 Orders Only Doctor Unassigned, [place] [facility] 1.2.840.114 350.1.13.10 4.2.7.2.686 [id number] 009 [id number] 2020-03-26 00:00:00 2020-03-26 00:00:00 Orders Only Doctor Unassigned, [place] [facility] 1.2.840.114 350.1.13.10 4.2.7.2.686 [id number] 009 [id number] [facility] 2020-03-16 09:57:45 2020-03-16 10:33:41 Office Visit [facility] 1.2.840.114 350.1.13.10 4.2.7.2.686 [id number] 220 [id number] 2020-03-16 09:57:45 2020-03-16 10:33:41 Office Visit [facility] 1.2.840.114 350.1.13.10 4.2.7.2.686 [id number] 220 [id number] [facility] 2020-03-16 10:00:00 2020-03-16 10:00:00 Outpatient R [facility] [id number] [facility] 2020-03-16 00:00:00 2020-03-16 00:00:00 Orders Only Doctor Unassigned, [place] [facility] 1.2.840.114 350.1.13.10 4.2.7.2.686 [id number] 009 [id number] 2020-03-16 00:00:00 2020-03-16 00:00:00 Letter (Out) Doctor Unassigned, [place] [facility] 1.2.840.114 350.1.13.10 4.2.7.2.686 [id number] 044 [id number] [facility] 2020-03-16 00:00:00 2020-03-16 00:00:00 Orders Only Doctor Unassigned, [place] [facility] 1.2.840.114 350.1.13.10 4.2.7.2.686 [id number] 009 [id number] [facility] 2020-02-17 11:00:00 2020-02-17 11:00:00 Outpatient R INGE CABA [facility] [id number] [facility] 2020-02-07 00:00:00 2020-02-07 00:00:00 Telephone Inge Caba [facility] nal Building 1.2.840.114 350.1.13.10 4.2.7.2.686 [id number] 220 [id number] [facility] 2020-01-24 00:00:00 2020-01-24 00:00:[address] [facility] 1.2.840.114 350.1.13.10 4.2.7.2.686 [id number] 220 [id number] [facility] 2020-01-24 00:00:00 2020-01-24 00:00:00 Telephone Inge Caba [facility] 1.2.840.114 350.1.13.10 4.2.7.2.686 [id number] 220 [id number] [facility] 2020-01-01 00:00:00 2020-01-01 00:00:00 Telephone Rosales Inge [facility] Building 1.2.840.114 350.1.13.10 4.2.7.2.686 [id number] 220 [id number] [facility] 2019-12-08 00:00:00 2019-12-08 00:00:00 Telephone Inge Caba [facility] 1.2.840.114 350.1.13.10 4.2.7.2.686 [id number] 220 [id number] [facility] 2019-12-06 00:00:00 2019-12-06 00:00:00 Telephone Bj Blackwell [facility]al Building 1.2840.114 350.1.13.10 4.2.7.2.686 [id number] 220 [id number] [facility] 2019-10-16 00:00:00 2019-10-16 00:00:00 Orders Only Doctor Unassigned, [place] [facility] 1.2.840.114 350.1.13.10 4.2.7.2.686 [id number] 009 [id number] [facility] 2019-10-08 00:00:00 2019-10-08 00:00:00 [facility] 1.2840.114 350.1.13.10 4.2.7.2.686 [id number] 220 [id number] [facility] 2019-09-30 11:30:00 2019-09-30 11:30:00 Outpatient R [facility] [id number] [facility] 2019-09-30 08:04:06 2019-09-30 08:34:06 Telemedici ne Visit Douglasmaximo [facility] 1.2840.114 350.1.13.10 4.2.7.2.686 [id number] 220 [id number] [facility] 2019-08-28 00:00:00 2019-08-28 00:00:00 Orders Only Doctor Unassigned, [place] [facility] 1.2840.114 350.1.13.10 4.2.7.2.686 [id number] 009 [id number] [facility] 2019-08-22 00:00:00 2019-08-22 00:00:00 Telephone Douglaschemokhadijah [facility] 1.2840.114 350.1.13.10 4.2.7.2.686 [id number] 220 [id number] [facility] 2019-08-22 00:00:00 2019-08-22 00:00:00 Telephone Inge Caba [facility] Building 1.2.840.114 350.1.13.10 4.2.7.2.686 [id number] 220 [id number] [facility] 2019-08-02 00:00:00 2019-08-02 00:00:00 Orders Only Doctor Unassigned, [place] [facility] 1.2.840.114 350.1.13.10 4.2.7.2.686 [id number] 009 [id number] [facility] 2019-07-31 00:00:00 2019-07-31 00:00:00 Telephone Inge Caba [facility] Building 1.2.840.114 350.1.13.10 4.2.7.2.686 [id number] 220 [id number] [facility] 2019-07-31 00:00:00 2019-07-31 00:00:00 Telephone Inge Caba [facility] Building 1.2.840.114 350.1.13.10 4.2.7.2.686 [id number] 220 [id number] [facility] 2019-07-15 00:00:00 2019-07-15 00:00:00 Telephone Inge Caba [facility] Building 1.2.840.114 350.1.13.10 4.2.7.2.686 [id number] 220 [id number] [facility] 2019-07-14 00:00:00 2019-07-14 00:00:00 Orders Only Doctor Unassigned, [place] [facility] 1.2.840.114 350.1.13.10 4.2.7.2.686 [id number] 009 [id number] [facility] 2019-07-10 00:00:00 2019-07-10 00:00:00 [facility] 1.2.840.114 350.1.13.10 4.2.7.2.686 [id number] 220 [id number] [facility] 2019-07-08 00:00:00 2019-07-08 00:00:00 Telephone Inge Caba [facility] essio nal Building 1.2.840.114 350.1.13.10 4.2.7.2.686 [id number] 220 [id number] [facility] 2019-07-01 12:57:27 2019-07-01 17:00:06 Office Visit Inge Caba [facility] Maggi[facility] nal Building 1.2.840.114 350.1.13.10 4.2.7.2.686 [id number] 220 [id number] [facility] Results Test Description Test Time Test Comments Results Result Co mments Source [facility] Hemoglobin A1C [id number] 17:37:00* Test Item Value Reference Range Interpretation Comme nts POCT HBA1C (test code = 4548-4) 9.6 % 4-6 A Lab Interpretation (test cod e = 64380-9) Abnormal [facility] HEMOGLOBIN A1C [id number] 18:12:00* Test Item Value Reference Range Interpretation Comme nts POCT HBA1C (test code = 4548-4) 8.0 % 4-6 A Lab Interpretation (test cod e = 94141-2) Abnormal [facility] HEMOGLOBIN A1C [id number] 18:12:00* Test Item Value Reference Range Interpretation Comme nts POCT HBA1C (test code = 4548-4) 8.0 % 4-6 A Lab Interpretation (test cod e = 73850-6) Abnormal [facility] HEMOGLOBIN A1C [id number] 17:33:00* Test Item Value Reference Range Interpretation Comme nts POCT HBA1C (test code = 4548-4) 7.9 % 4-6 A Lab Interpretation (test cod e = 34063-9) Abnormal [facility] HEMOGLOBIN A1C [id number] 17:33:00* Test Item Value Reference Range Interpretation Comme nts POCT HBA1C (test code = 4548-4) 7.9 % 4-6 A Lab Interpretation (test cod e = 35107-2) Abnormal [facility] HEMOGLOBIN A1C [id number] 18:20:00* Test Item Value Reference Range Interpretation Comme [facility] POCT HBA1C (test code = 4548-4) 8.3 % 4-6 A Lab Interpretation (test cod e = 89651-9) Abnormal [facility] HEMOGLOBIN A1C [id number] 18:20:00* Test Item Value Reference Range Interpretation Comme [facility] POCT HBA1C (test code = 4548-4) 8.3 % 4-6 A Lab Interpretation (test cod e = 66543-7) Abnormal [facility] Notes Date/Time Note Provider Source 2023-07-18 17:30:11 2qqDS9F82XfhLMHHsmfV 5lle8Fq8m0Vwl dYjDCpI2TWBZDh47MLwdk8H8c9lrSjr43 05-08-047:30:11 Please call patient and let her know that since her insurance will not cover her Víctorxiga, I have placed a prescription for Jardiance instead. 77088-5Cevjzlhph encounter FtobRE2817-88-82J80:35:27Telephon e encounter NoteTXT1.2.840.805148.1.13.104.2. 7.2.894680|[id number] for patient waqx28950-8RsazVUHJBMJGLIKEtiqvrq ed C-CDA narrative text[address] BtioFexsvmkibEgjzdaarpQDBE8757073 344EXJEEMONZECEQAHXHSLRPZ3016-01- 05T17:35:271.2.840.993017.1.72.3. 15|1.2.840.870057.1.13.104.2.7.2. 727879_[id number] [facility] 2023-07-05 10:35:21 5/pWb+hl1gDsewP2JFLY RSTZXFS+QW5B8 VCRZIVLGzKsfGT91xmkSpGL1Uwz9/zG20 08-07-20T10:35:21 RAMILA 04/28/2023NOV 4dapagliflozin (FARXIGA) 10 mg Lon Montes MA 07/05/2023 10:37 AM 77791-5Bnhwlhagu encounter PrtaMA1332-51-97X16:38:21Telephon e encounter NoteTXT1.2.840.155050.1.13.104.2. 7.2.511139|5870115895AWQxlrsqwql for patient hftf96813-8LnlmGZSCZUMTSQDRikdoax ed C-CDA narrative textUT[address] LkqlXspynkmevJktkfulveGUQE6362604 693KTCVYLLDREPIOECBHLMUZN7154-19- 21T10:38:211.2.840.313869.1.72.3. 15|1.2.840.238254.1.13.104.2.7.2. 727879_[id number] [facility] 2023-06-21 10:08:21 GEqvRUqsK6m7pqYK0Bh7 TJ2p2KvaR3sCX gjqMbDwGQUSMYmTGKq7be3XqcifmY7A10 08-07-06T10:08:21 Spoke with patient and let her [...] heard from pharmacy or been able to picker / packer Teddy so I can follow up. Let patient know many medications are requiring a prior authorization but the clinic sometimes does not receive the fax. 07563-9Oeknqlbpn encounter GtlpTN2698-41-99E28:14:21Telephon e encounter NoteTXT1.2.840.588401.1.13.104.2. 7.2.099991|4361581453RWLgoesrvei for patient sxys43021-7OojoSTUNPTERXPALclebjp ed C-CDA narrative ikbs472642887Frhf D [place] [address] 898JMTNFSICCHTEDEHXWLTWKM2702-88- 07T10:14:211.2.840.283570.1.72.3. 15|1.2.840.140362.1.13.104.2.7.2. 727879_[id number] Aga Knutson LVN [facility] 2023-06-21 08:57:21 JuxpJIaEkRVEjD8i16Q8 cnOVZnpo93VRz a3fCBb8cE/a6GHSKm4mLUusSCewTOqJ96 08-07-06T08:57:21 Noted. Closing encounter 29940-5Xqcdhmury encounter VtnkCV7644-82-11J84:57:33Telephon e encounter NoteTXT1.2.840.377146.1.13.104.2. 7.2.901891|5365738607LRBmpubsfph for patient zdhn50557-9MkcoTSNFBVEKRTBDshyrxm ed C-CDA narrative pkhs268962434Gpbm D [place] [address] 022ZUPXWHORGXFMPDKUFILLDR6347-20- 07T08:57:331.2.840.394198.1.72.3. 15|1.2.840.544345.1.13.104.2.7.2. 727879_[id number] Aga Knutson BUSINESS MANAGEMENT INTERN [facility] 2023-06-21 08:38:45 BRkXeDnCWCRMxIiaXaQY HI4Vq+Tn447U+ 5YW47vLe6GcIBVcmYVAVGP9pV8W/cQF20 08-07-0608:38:45 Ozempic has been stopped. A prescription for Mounjaro 7.5 mg weekly injection has been sent to her local [facility] [place] [place] [address]-0Kjjjgnumk encounter JdptZE6315-80-55R36:45:07Telephon e encounter NoteTXT1.2.840.363467.1.13.104.2. 7.2.449756|[id number] for patient cdeu47152-6RkliNMFZHNIKXIVVjcusxv ed C-CDA narrative textUT[address] PdhcCwgmrejfdRqqxotkmmBEGT3162465 378BGAKYNPGKWPGEQHARKSNCI7397-38- 07T08:45:071.2.840.361245.1.72.3. 15|1.2.840.768243.1.13.104.2.7.2. 727879_[id number] [facility] 2023-06-21 08:32:24 RYiMH6NFyjQ3NWsGY2Kk DAtYc55e1QMiy TVnnd23qsamCS3vFNzkGZyeT+/yOwR426 08-07-0608:32:24 Flora Ascencio is a 53 year old female pt is calling stating she is still having elevated blood sugars and Ozempic makes her vomit. Please advise asap 73577-4Nysaxritm encounter YutmMB8148-70-63Z60:34:11Telephon e encounter NoteTXT1.2.840.080341.1.13.104.2. 7.2.228594|8380516474DHHhvxdjwgc for patient tpks51180-7CszkCRJZBOQKIIORtelihq ed C-CDA narrative ithr818113592Oxzahcan [address]TXTX[address] 517IFCVSCRNHATQTXVJOEPDBP5722-30- 07T08:34:111.2.840.707705.1.72.3. 15|1.2.840.448173.1.13.104.2.7.2. 727879_[id number] Kathie FilippoFormerly [facility] 2023-06-20 14:28:34 fguXPrLcvR/z8O+vCuO4 ouwgoka7nx11V tQXWDE173plRYNPTNWTxojMASrxykxG45 08-07-05T14:28:34 Unit Controller Karri is calling to talk to the Nurse about the Assessment call yesterday. Please call Karri at [phone] signed by Lauren Wesley at 06/20/2023 2:30 PM UIE04898-9Lrbdrwcef encounter SrfkHC6946-61-65P70:30:01Telephon e encounter NoteTXT1.2.840.709719.1.13.104.2. 7.2.661052|8242028117USHsenmchtq for patient pgrz89524-4ZuueTRQRLMVVEKQDfkjuft ed C-CDA narrative bgmb110105437Mgihg J Boudreau[address]TX[address] 996YBICDSDGYPRIOMGAPMMMNK8126-60- 06T14:30:011.2.840.058224.1.72.3. 15|1.2.840.035161.1.13.104.2.7.2. 727879_[id number] Lauren Wesley [facility] 2023-06-20 13:27:27 9cxy55Zspi7+opy2sAyM Wkl2zFldXmUxw T/K6RNVyUYQqAD9qqG9IdeONwbcOENX39 08-07-053:27:27 Flora Ascencio is a 53 year old femalePts caregiver is calling to speak with a nurse regarding pts blood sugar and vomiting , Please advise 32357-4Bsvavizvo encounter VinfUA1303-93-45B24:29:36Telephon e encounter NoteTXT1.2.840.996003.1.13.104.2. 7.2.077449|0858254189KDDkokuyeti for patient chwi71795-5ZasqMMTTJSEYOPUXxjuduo ed C-CDA narrative lmgz348917314Rjpexa [address] HgvfRwoykasttKjiltooerXVRF9170547 348EWOUVAYBHSKLKROJKNAZUY0136-48- 06T13:29:361.2.840.258392.1.72.3. 15|1.2.840.116046.1.13.104.2.7.2. 727879_[id number] Rut Navarrete [facility] 2023-06-20 10:32:16 Jasymne/Kai/PROCfLAcgr MAYimMdqe6+63 0lZnXvgMuhoa9SjDRixausUo4oNEn9T80 08-07-050:32:16 Flora Ascencio is a 53 year old femalePt is calling back requesting to speak with a nurse 17828-3Huihmsvxf encounter HuvpKX2351-46-97B02:32:46Telephon e encounter NoteTXT1.2.840.458132.1.13.104.2. 7.2.115143|6785715970HSVhjqpyabo for patient vndg26080-5IcuxUYCLSFOZOBRQeumogr ed C-CDA narrative nudj527854938Weqrbt Mayra Hay[address]TX[address] 841FFGDVJLYWLNZUKWAJGHSXC5789-74- 06T10:32:461.2.840.094403.1.72.3. 15|1.2.840.886286.1.13.104.2.7.2. 727879_[id number] Chinyere Guido [facility] 2023-06-20 09:11:52 2qj/tAKu4eDKIN4nulXr Jose/5LdRZZQR F5mdKFWUbLclfmeKZRaAs9nN6UFr2do23 08-07-05T09:11:52 Flora Ascencio is a 53 year old femalePatient mother calling in requesting a call back from nurse regarding pts sugar being high in the mornings.[phone] - [phone] - [place] [address]-5Wzezqaljy encounter GdjsSO3577-03-56Z68:13:20Telephon e encounter NoteTXT1.2.840.688236.1.13.104.2. 7.2.441780|9122758515DTOtikndvut for patient rvxe66888-8IevtNVZCZUMDAYZHseepbe ed C-CDA narrative ldvv756529299Bszk [address]TX[address] 903MYUFXEFQPYVKBXRKTPJXPB1930-54- 06T09:13:201.2.840.839855.1.72.3. 15|1.2.840.124491.1.13.104.2.7.2. 727879_[id number] Madelyn Curtis [facility] 2023-06-19 15:11:01 l0hHUNRczGUe6yDDHe/0 HsTHbaWxQIERL cDq5m357fHd+TxyDI4+bkmGWYpu0KKX85 08-07-045:11:01 Pt florin moon call 56917-5Fsqcdkrvs encounter WgtwTJ3477-06-22I93:11:13Telephon e encounter NoteTXT1.2.840.219699.1.13.104.2. 7.2.153188|4469397192TDHkzprfmwb for patient iaag47443-8SewbBCKVBOFSQKAPkzjngi ed C-CDA narrative nqlw976628216Dmlmpdn H [address] NniuMdhzdzrlhDelqkwqxdYMRE1434027 377OLGVTDHTZUOVJTWFPVMKSP9738-69- 05T15:11:131.2.840.938249.1.72.3. 15|1.2.840.448882.1.13.104.2.7.2. 727879_[id number] Diann Mckinney [facility] 2023-06-19 14:58:52 5gVc/ihH57MWpk3t4Cb8 k8vM0198MOdSr QkPyicu1DDJ1gRmA4Na9vmM5/tROBD295 08-07-044:58:52 Reached out to patient but no answer. Left message. 88465-1Jjmfvcfld encounter YvqoEI5182-29-96D36:59:21Telephon e encounter NoteTXT1.2.840.962287.1.13.104.2. 7.2.288072|3985982514QBBzmkwwafi for patient cuwd19262-5DkhnXBYQTKBECKUFscaihs ed C-CDA narrative text[address]TXTX[address] 988SPSXRTPBEYOZKGPQRHILUZ8679-22- 05T14:59:211.2.840.749566.1.72.3. 15|1.2.840.491877.1.13.104.2.7.2. 727879_[id number] [facility] 2023-06-19 14:39:12 EhSzsT6hBfEAd3fza0LU R4aaSh/Ad0QSc 2gznJrHIcxiQKdtIeqNifu7KbsJmE3K75 08-07-044:39:12 Pt is returning call to the nurse about her blood sugar being [phone] signed by Lauren Wesley at 06/19/2023 2:41 PM SYC01368-1Njufuzdlu encounter RmbtLH0839-46-19D06:41:16Telephon e encounter NoteTXT1.2.840.439902.1.13.104.2. 7.2.450905|6186505322LNJjawisndd for patient izgu10931-9KjahFSBULECYNCHDswabae ed C-CDA narrative textUT[address]TXTX[address] 492LJDQXFDJNIXCLVFKNJILGA1900-31- 05T14:41:161.2.840.781933.1.72.3. 15|1.2.840.579533.1.13.104.2.7.2. 727879_[id number] [facility] 2023-06-19 08:28:46 Zp7q3lJc5s5UTFQQofoV GnWvLWlOMBbWJ eXKz1hliJewajgt9PmDLFwFK/7Sx5AE16 08-07-0408:28:46 Pt states that her meds are not helping. Pt states that her blood sugar is 300. She states that Ozempic makes her vomit. Pls advise. 33851-1Gkvuejvqc encounter AbghXB3310-92-87U02:29:57Telephon e encounter NoteTXT1.2.840.428544.1.13.104.2. 7.2.692269|5391036157LJJexeabmdw for patient udgz24177-0ZmwkMNNJXBEJSOXHbinolu ed C-CDA narrative wvrd501587455Jsisselw [address] SudsXibbkjdnjBtvddifhcGNIN7372425 914OIXHQHFVLTSYLUVJZNBIPV7142-81- 05T08:29:571.2.840.702129.1.72.3. 15|1.2.840.992714.1.13.104.2.7.2. 727879_[id number] Danilo [facility] 2023-05-23 10:09:53 ELxyao2JQO9/4h5SnLBK kDglHcCeOsOij tishEDZ/qBicHqY5ACfA0zEqdzOtW1n66 07-06-080:09:53 RMAILA 04/28/23NOV 08/25/23Per RAMILA note:Please restart Glimepiride 2 mg BID 21973-9Iyfgzawij encounter VhghVU0319-41-02I23:11:09Telephon e encounter NoteTXT1.2.840.412433.1.13.104.2. 7.2.262403|[id number] for patient pavm61059-8RtywIPTMNCLWEKWBvmclrz ed C-CDA narrative text[address]RbjcWpblebswjGwwxuuwnkGKYU5954000 692JPJHLCAKKIDXVXGLOQKTJM7028-39- 09T10:11:091.2.840.269390.1.72.3. 15|1.2.840.385700.1.13.104.2.7.2. [id number] [facility] 2023-05-22 17:24:23 csaZGNCz1f+qLn4VmxGb PHiQv5HE276jc bJz3HRvwgCyWlEmD0tc6jIAGBMhBCjF18 07-06-077:24:23 Images from the original note were not included. 56094-6Ovrtmtqfi encounter UadlJW4120-56-49Q60:25:05Telephon e encounter NoteTXT1.2.840.444938.1.13.104.2. 7.2.396115|[id number] for patient jhqz62769-0GcbrSXAOGCGENRLSqeevpn ed C-CDA narrative [id number] Nall[address]GxhgX[id number] 491UJSAVSZJTTEJSJPUQTFMRK2603-78- 08T17:25:051.2.840.258094.1.72.3. 15|1.2.840.309888.1.13.104.2.7.2. [id number] Ginger Thomas [facility]"
== END ==
LOC: ER 07:12
DX: Z02.9 Encounter for administrative examinations, unspecified (principal)

== ENCOUNTER → 2023-07-31 | Emergency (ER) | payer OTHER ==
[~2023-07-31] MED LIST changes: -ACYCLOVIR 400 MG TABLET ONE; +AMOX/K CLAV 875 MG TAB ONE; -CEFTRIAXONE 1000 MG/VIAL ONE; -LIDOCAINE 1% MPF 2 ML AMPULE ONE; +LIDOCAINE VISCOUS 2% 10ML ORAL SOLN ONE; +MAGNES/ALUMIN/SIMET 30ML UCUP ONE; -ONDANSETRON 4 MG (ODT) TAB ONE
--- OUTSIDE RECORDS SUMMARY | 2023-07-31 23:29 | XMS REPORT | Continuity of Care Document ---
Author Name Unknown Address [address] [facility] [address] [place] [address] [facility] thconnect Address [address] [facility] [address] [place] [address] Care Team Providers Care Pattern Changer And Repairer Name Role Phone Sandra Owens Primary Care Physician [phone] SUZANNA CALVILLO Attending Clinician Unavailable Suzanna Lora Attending Clinician [phone] Doctor Unassigned, [place] Attending Clinician U navailable [email or web address]_S Attending Clinician Janna Ventura MD Attending Clinician [phone] JANNA HERNANDES Attending Clinician Unavailable Team, [facility] Attending Clinicia n Inge Hay MD Attending Clinician INGE [place] Attending Clinician Unavailable BJ BLACKWELL Attending Clinician Bj Moseley MD Attending Clinician [phone] [email or web address]_Kaarinaa_S Admitting Clinician Sarah araujo Payers Payer Name Policy Type Policy Number Effective Date Expirati on Date Source [employer] CHO[employer] [id number] 2020 00:00:00 Problems Condition Name Condition Details [...] in adult Disease Active 10-25 00:00: 00 [facility] Mixed hyperlipid emia Mixed hyperlipid emia Disease Active 10-25 00:00: 00 [facility] Type 2 diabetes mellitus with hyperglyce yeyo, without long-term current use of insulin Type 2 diabetes mellitus with hyperglyce yeyo, without long-term current use of insulin Disease Active 08-23 00:00: 00 [facility] Allergies, Adverse Reactions, Alerts Allergy Name Allergy Type Status Severity Reaction(s) Onset Date Inactive Date Treating Clinician Comments Source CODEINE DRUG INGREDI Active Rash 10-18 00:00: 00 [facility] LORAZEPA M DRUG INGREDI Active Hives 10-18 00:00: 00 [facility] Codeine Propensi ty to adverse reaction s Active Rash 10-18 00:00: 00 [facility] Lorazepa m Propensi ty to adverse reaction s Active Hives 10-18 00:00: 00 [facility] NO KNOWN ALLERGIE S Drug Class Active [facility] Social History Social Habit Start Date Stop Date Quantity Comments Source [facility] History of tobacco use Cigar Smoker [facility] Alcohol intake 2023-05-12 00:00:00 2023-05-12 00:00:00 .14 /d [facility] History of Social function 2023-04-28 00:00:00 2023-04-28 00:00:00 [facility] Exposure to SARS-CoV-2 (event) 2022-02-12 00:00:00 2022-02-22 12:15:00 Not sure [facility] Sex Assigned At 1970 00:00:00 1970 00:00:00 [facility] Smoking Status Start Date Stop Date Source Occasional tobacco smoker 2023-05-12 00:00:00 [facility] Tobacco smoking consumption unknown [facility] Medications Ordered Medication Name Filled Medication Name Start Date Stop Date Current Medication? Ordering Clinician Indication Dosage Frequency Signature (SIG) Comments Components Source empaglifloz in (JARDIANCE) 10 mg tablet 07-17 00:00: 00 Yes [id number] 10mg Take 1 tablet by mouth in the morning. [facility] DAPAGLIFLOZ IN PROPANEDIOL 10 mg tablet 07-05 00:00: 00 Yes [id number] 10mg TAKE 1 TABLET BY MOUTH IN THE MORNING [facility] DAPAGLIFLOZ IN PROPANEDIOL 10 mg tablet 07-05 00:00: 00 07-17 00:00 :00 No [id number] 10mg TAKE 1 TABLET BY MOUTH IN THE MORNING [facility] tirzepatide (MOUNJARO) 7.5 mg/0.5 mL subcutaneou s injection 06-21 00:00: 00 Yes [id number] 7.5mg inject 7.5 mg under the skin weekly. [facility] tirzepatide (MOUNJARO) 7.5 mg/0.5 mL subcutaneou s injection 06-21 00:00: 00 Yes [id number] 7.5mg inject 7.5 mg under the skin weekly. [facility] tirzepatide (MOUNJARO) 7.5 mg/0.5 mL subcutaneou s injection 06-21 00:00: 00 Yes [id number] 7.5mg inject 7.5 mg under the skin weekly. [facility] tirzepatide (MOUNJARO) 7.5 mg/0.5 mL subcutaneou s injection 06-21 00:00: 00 Yes [id number] 7.5mg inject 7.5 mg under the skin weekly. [facility] glimepiride 2 mg tablet - 00:00: 00 Yes [id number] 2mg Take 1 tablet by mouth 2 (two) times daily before breakfast and dinner. [facility] glimepiride 2 mg tablet 05-23 00:00: 00 Yes [id number] 2mg Take 1 tablet by mouth 2 (two) times daily before breakfast and dinner. [facility] glimepiride 2 mg tablet 4-0 1-09 00:00: 00 Yes [id number] 2mg Take 1 tablet by mouth 2 (two) times daily before breakfast and dinner. [facility] glimepiride 2 mg tablet 4-0 1-09 00:00: 00 Yes [id number] 2mg Take 1 tablet by mouth 2 (two) times daily before breakfast and dinner. [facility] glimepiride 2 mg tablet 4-0 1-09 00:00: 00 Yes [id number] 2mg Take 1 tablet by mouth 2 (two) times daily before breakfast and dinner. [facility] dapaglifloz in (FARXIGA) 10 mg tablet 3-0 6-12 00:00: 00 Yes [id number] TAKE 1 TABLET BY MOUTH IN THE MORNING [facility] dapaglifloz in (FARXIGA) 10 mg tablet 3-0 6-12 00:00: 00 Yes [id number] TAKE 1 TABLET BY MOUTH IN THE MORNING [facility] dapaglifloz in (FARXIGA) 10 mg tablet 3-0 6-12 00:00: 00 Yes [id number] TAKE 1 TABLET BY MOUTH IN THE MORNING [facility] dapaglifloz in (FARXIGA) 10 mg tablet 3-0 6-12 00:00: 00 Yes [id number] TAKE 1 TABLET BY MOUTH IN THE MORNING [facility] dapaglifloz in (FARXIGA) 10 mg tablet 3-0 6-12 00:00: 00 Yes [id number] TAKE 1 TABLET BY MOUTH IN THE MORNING [facility] dapaglifloz in (FARXIGA) 10 mg tablet 3-0 6-12 00:00: 00 Yes [id number] TAKE 1 TABLET BY MOUTH IN THE MORNING [facility] dapaglifloz in (FARXIGA) 10 mg tablet 2023-0 6-12 00:00: 00 Yes [id number] TAKE 1 TABLET BY MOUTH IN THE MORNING [facility] dapaglifloz in (FARXIGA) 10 mg tablet 2023-0 6-12 00:00: 00 07-05 00:00 :00 No [id number] TAKE 1 TABLET BY MOUTH IN THE MORNING [facility] Fe gluconate/v it C/folic acid (IRON-C ORAL) 10-18 13:42: 41 Yes [facility] Fe gluconate/v it C/folic acid (IRON-C ORAL) 0 10-18 13:42: 41 Yes [facility] Fe gluconate/v it C/folic acid (IRON-C ORAL) 0 10-18 13:42: 41 Yes [facility] Fe gluconate/v it C/folic acid (IRON-C ORAL) 10-18 13:42: 41 Yes [facility] Fe gluconate/v it C/folic acid (IRON-C ORAL) 10-18 13:42: 41 Yes [facility] Fe gluconate/v it C/folic acid (IRON-C ORAL) 10-18 13:42: 41 Yes [facility] Fe gluconate/v it C/folic acid (IRON-C ORAL) 0 10-18 13:42: 41 Yes [facility] Fe gluconate/v it C/folic acid (IRON-C ORAL) 10-18 13:42: 41 Yes [facility] Fe gluconate/v it C/folic acid (IRON-C ORAL) 0 10-18 13:42: 41 Yes [facility] Fe gluconate/v it C/folic acid (IRON-C ORAL) 0 10-18 13:42: 41 Yes [facility] Fe gluconate/v it C/folic acid (IRON-C ORAL) 10-18 13:42: 41 Yes [facility] L. acidophilus /Bifido. longum (PROBIOTIC PEARLS ORAL) 0 10-18 13:42: 40 Yes [facility] L. acidophilus /Bifido. longum (PROBIOTIC PEARLS ORAL) 10-18 13:42: 40 Yes [facility] L. acidophilus /Bifido. longum (PROBIOTIC PEARLS ORAL) 10-18 13:42: 40 Yes [facility] L. acidophilus /Bifido. longum (PROBIOTIC PEARLS ORAL) 10-18 13:42: 40 Yes [facility] L. acidophilus /Bifido. longum (PROBIOTIC PEARLS ORAL) 10-18 13:42: 40 Yes [facility] L. acidophilus /Bifido. longum (PROBIOTIC PEARLS ORAL) 10-18 13:42: 40 Yes [facility] L. acidophilus /Bifido. longum (PROBIOTIC PEARLS ORAL) 10-18 13:42: 40 Yes [facility] L. acidophilus /Bifido. longum (PROBIOTIC PEARLS ORAL) 10-18 13:42: 40 Yes [facility] L. acidophilus /Bifido. longum (PROBIOTIC PEARLS ORAL) 10-18 13:42: 40 Yes [facility] L. acidophilus /Bifido. longum (PROBIOTIC PEARLS ORAL) 10-18 13:42: 40 Yes [facility] L. acidophilus /Bifido. longum (PROBIOTIC PEARLS ORAL) 10-18 13:42: 40 Yes [facility] mv-mn/iron/ folic acid/herb 190 (VITAMIN D3 COMPLETE ORAL) 10-18 13:42: 39 Yes [facility] mv-mn/iron/ folic acid/herb 190 (VITAMIN D3 COMPLETE ORAL) 10-18 13:42: 39 Yes [facility] mv-mn/iron/ folic acid/herb 190 (VITAMIN D3 COMPLETE ORAL) 10-18 13:42: 39 Yes [facility] mv-mn/iron/ folic acid/herb 190 (VITAMIN D3 COMPLETE ORAL) 10-18 13:42: 39 Yes [facility] mv-mn/iron/ folic acid/herb 190 (VITAMIN D3 COMPLETE ORAL) 10-18 13:42: 39 Yes [facility] mv-mn/iron/ folic acid/herb 190 (VITAMIN D3 COMPLETE ORAL) 0 10-18 13:42: 39 Yes [facility] mv-mn/iron/ folic acid/herb 190 (VITAMIN D3 COMPLETE ORAL) 0 10-18 13:42: 39 Yes [facility] mv-mn/iron/ folic acid/herb 190 (VITAMIN D3 COMPLETE ORAL) 0 10-18 13:42: 39 Yes [facility] mv-mn/iron/ folic acid/herb 190 (VITAMIN D3 COMPLETE ORAL) 0 10-18 13:42: 39 Yes [facility] mv-mn/iron/ folic acid/herb 190 (VITAMIN D3 COMPLETE ORAL) 0 10-18 13:42: 39 Yes [facility] mv-mn/iron/ folic acid/herb 190 (VITAMIN D3 COMPLETE ORAL) 0 10-18 13:42: 39 Yes [facility] LISINOPRIL ORAL 0 10-18 13:22: 37 Yes Take by mouth. [facility] LISINOPRIL ORAL 0 10-18 13:22: 37 Yes Take by mouth. [facility] LISINOPRIL ORAL 0 10-18 13:22: 37 Yes Take by mouth. [facility] LISINOPRIL ORAL 0 10-18 13:22: 37 Yes Take by mouth. [facility] LISINOPRIL ORAL 0 10-18 13:22: 37 Yes Take by mouth. [facility] LISINOPRIL ORAL 2022-0 10-18 13:22: 37 Yes Take by mouth. [facility] LISINOPRIL ORAL 2022-0 10-18 13:22: 37 Yes Take by mouth. [facility] LISINOPRIL ORAL 0 10-18 13:22: 37 Yes Take by mouth. [facility] LISINOPRIL ORAL 2022-0 10-18 13:22: 37 Yes Take by mouth. [facility] LISINOPRIL ORAL 2022-10-18 13:22: 37 Yes Take by mouth. [facility] LISINOPRIL ORAL 10-18 13:22: 37 Yes Take by mouth. [facility] atorvastati n 40 mg tablet 10-18 13:22: 14 Yes 40mg Take 40 mg by mouth at bedtime. [facility] atorvastati n 40 mg tablet 10-18 13:22: 14 Yes 40mg Take 40 mg by mouth at bedtime. [facility] atorvastati n 40 mg tablet 10-18 13:22: 14 Yes 40mg Take 40 mg by mouth at bedtime. [facility] atorvastati n 40 mg tablet 10-18 13:22: 14 Yes 40mg Take 40 mg by mouth at bedtime. [facility] atorvastati n 40 mg tablet 10-18 13:22: 14 Yes 40mg Take 40 mg by mouth at bedtime. [facility] atorvastati n 40 mg tablet 10-18 13:22: 14 Yes 40mg Take 40 mg by mouth at bedtime. [facility] atorvastati n 40 mg tablet 10-18 13:22: 14 Yes 40mg Take 40 mg by mouth at bedtime. [facility] atorvastati n 40 mg tablet 10-18 13:22: 14 Yes 40mg Take 40 mg by mouth at bedtime. [facility] atorvastati n 40 mg tablet 10-18 13:22: 14 Yes 40mg Take 40 mg by mouth at bedtime. [facility] atorvastati n 40 mg tablet 0 10-18 13:22: 14 Yes 40mg Take 40 mg by mouth at bedtime. [facility] atorvastati n 40 mg tablet 0 10-18 13:22: 14 Yes 40mg Take 40 mg by mouth at bedtime. [facility] ezetimibe 10 mg tablet 10-18 13:22: 13 Yes 10mg Take 10 mg by mouth daily. [facility] ezetimibe 10 mg tablet 2022-0 10-18 13:22: 13 Yes 10mg Take 10 mg by mouth daily. [facility] ezetimibe 10 mg tablet 2022-0 10-18 13:22: 13 Yes 10mg Take 10 mg by mouth daily. [facility] ezetimibe 10 mg tablet 0 10-18 13:22: 13 Yes 10mg Take 10 mg by mouth daily. [facility] ezetimibe 10 mg tablet 2022-0 10-18 13:22: 13 Yes 10mg Take 10 mg by mouth daily. [facility] ezetimibe 10 mg tablet 0 10-18 13:22: 13 Yes 10mg Take 10 mg by mouth daily. [facility] ezetimibe 10 mg tablet 0 10-18 13:22: 13 Yes 10mg Take 10 mg by mouth daily. [facility] ezetimibe 10 mg tablet 0 10-18 13:22: 13 Yes 10mg Take 10 mg by mouth daily. [facility] ezetimibe 10 mg tablet 0 10-18 13:22: 13 Yes 10mg Take 10 mg by mouth daily. [facility] ezetimibe 10 mg tablet 0 10-18 13:22: 13 Yes 10mg Take 10 mg by mouth daily. [facility] ezetimibe 10 mg tablet 0 10-18 13:22: 13 Yes 10mg Take 10 mg by mouth daily. [facility] semaglutide (OZEMPIC) 2 mg/dose (8 mg/3 mL) PnIj 0 10-18 00:00: 00 Yes [id number] 2mg inject 2 mg under the skin weekly. [facility] glimepiride 2 mg tablet 0 10-18 00:00: 00 Yes [id number] 2mg Take 1 tablet by mouth 2 (two) times daily before breakfast and dinner. [facility] semaglutide (OZEMPIC) 2 mg/dose (8 mg/3 mL) PnIj 10-18 00:00: 00 Yes [id number] 2mg inject 2 mg under the skin weekly. [facility] glimepiride 2 mg tablet 10-18 00:00: 00 Yes [id number] 2mg Take 1 tablet by mouth 2 (two) times daily before breakfast and dinner. [facility] semaglutide (OZEMPIC) 2 mg/dose (8 mg/3 mL) PnIj 10-18 00:00: 00 Yes [id number] 2mg inject 2 mg under the skin weekly. [facility] glimepiride 2 mg tablet 10-18 00:00: 00 Yes [id number] 2mg Take 1 tablet by mouth 2 (two) times daily before breakfast and dinner. [facility] semaglutide (OZEMPIC) 2 mg/dose (8 mg/3 mL) PnIj 10-18 00:00: 00 Yes [id number] 2mg inject 2 mg under the skin weekly. [facility] glimepiride 2 mg tablet 10-18 00:00: 00 Yes [id number] 2mg Take 1 tablet by mouth 2 (two) times daily before breakfast and dinner. [facility] semaglutide (OZEMPIC) 2 mg/dose (8 mg/3 mL) PnIj 10-18 00:00: 00 Yes [id number] 2mg inject 2 mg under the skin weekly. [facility] glimepiride 2 mg tablet 10-18 00:00: 00 Yes [id number] 2mg Take 1 tablet by mouth 2 (two) times daily before breakfast and dinner. [facility] semaglutide (OZEMPIC) 2 mg/dose (8 mg/3 mL) PnIj 0 10-18 00:00: 00 Yes [id number] 2mg inject 2 mg under the skin weekly. [facility] glimepiride 2 mg tablet 10-18 00:00: 00 Yes [id number] 2mg Take 1 tablet by mouth 2 (two) times daily before breakfast and dinner. [facility] semaglutide (OZEMPIC) 2 mg/dose (8 mg/3 mL) PnIj 0 6-06 00:00: 00 Yes [id number] 2mg inject 2 mg under the skin weekly. [facility] semaglutide (OZEMPIC) 2 mg/dose (8 mg/3 mL) PnIj 0 6- 00:00: 00 06-21 00:00 :00 No [id number] 2mg inject 2 mg under the skin weekly. [facility] glimepiride 2 mg tablet 0 - 00:00: 00 05-23 00:00 :00 No [id number] 2mg Take 1 tablet by mouth 2 (two) times daily before breakfast and dinner. [facility] dapaglifloz in ([facility]) 10 mg tablet 3-0 5-25 00:00: 00 Yes [id number] 10mg Take 1 tablet by mouth in the morning. NEED TO MAKE FOLLOW UP APPT FOR FURTHER REFILLS [facility] tablet 3-0 5-25 00:00: 00 10-24 00:00 :00 No [id number] 10mg Take 1 tablet by mouth in the morning. NEED TO MAKE FOLLOW UP APPT FOR FURTHER REFILLS [facility] 10 mg tablet 3-0 5-25 00:00: 00 10-24 00:00 :00 No [id number] 10mg Take 1 tablet by mouth in the morning. NEED TO MAKE FOLLOW UP APPT FOR FURTHER REFILLS [facility]z [facility] 10 mg tablet 3-0 5-25 00:00: 00 10-24 00:00 :00 No [id number] 10mg Take 1 tablet by mouth in the morning. NEED TO MAKE FOLLOW UP APPT FOR FURTHER REFILLS [facility] ABILIFY 10 mg tablet 2023-0 5-10 00:00: 00 Yes [facility] ABILIFY 10 mg tablet 3-0 5-10 00:00: 00 Yes [facility] ABILIFY 10 mg tablet 2023-0 5-10 00:00: 00 Yes [facility] ABILIFY 10 mg tablet 2023-0 5-10 00:00: 00 Yes [facility] ABILIFY 10 mg tablet 2023-0 5-10 00:00: 00 Yes [facility] ABILIFY 10 mg tablet 3-0 5-10 00:00: 00 Yes [facility] ABILIFY 10 mg tablet 2023-0 5-10 00:00: 00 Yes [facility] ABILIFY 10 mg tablet 2023-0 5-10 00:00: 00 Yes [facility] ABILIFY 10 mg tablet 3-0 5-10 00:00: 00 Yes [facility] ABILIFY 10 mg tablet 3-0 5-10 00:00: 00 Yes [facility] ABILIFY 10 mg tablet 3-0 5-10 00:00: 00 Yes [facility] azelastine 137 mcg (0.1 %) nasal [...] EACH NOSTRIL TWICE DAILY [facility] azelastine 137 mcg (0.1 %) nasal spray 2022-0 08-10 00:00: 00 Yes USE 1 TO 2 SPRAYS IN EACH NOSTRIL TWICE DAILY [facility] azelastine 137 mcg (0.1 %) nasal spray 2022-0 08-10 00:00: 00 Yes USE 1 TO 2 SPRAYS IN EACH NOSTRIL TWICE DAILY [facility] azelastine 137 mcg (0.1 %) nasal spray 2022-0 08-10 00:00: 00 Yes USE 1 TO 2 SPRAYS IN EACH NOSTRIL TWICE DAILY [facility] azelastine 137 mcg (0.1 %) nasal spray 08-10 00:00: 00 Yes USE 1 TO 2 SPRAYS IN EACH NOSTRIL TWICE DAILY [facility] azelastine 137 mcg (0.1 %) nasal spray 08-10 00:00: 00 Yes USE 1 TO 2 SPRAYS IN EACH NOSTRIL TWICE DAILY [facility] azelastine 137 mcg (0.1 %) nasal spray 08-10 00:00: 00 Yes USE 1 TO 2 SPRAYS IN EACH NOSTRIL TWICE DAILY [facility] azelastine 137 mcg (0.1 %) nasal spray 08-10 00:00: 00 Yes USE 1 TO 2 SPRAYS IN EACH NOSTRIL TWICE DAILY [facility] azelastine 137 mcg (0.1 %) nasal spray 08-10 00:00: 00 Yes USE 1 TO 2 SPRAYS IN EACH NOSTRIL TWICE DAILY [facility] glimepiride 2 mg tablet 2021-05 00:00: 00 Yes [id number] 2mg Take 1 tablet by mouth 2 (two) times daily before breakfast and dinner. [facility] dapaglifloz in ([facility]) 10 mg tablet 2021-05 00:00: 00 Yes [id number] 10mg Take 1 tablet by mouth in the morning. [facility] semaglutide (OZEMPIC) 1 mg/dose (4 mg/3 mL) PnIj 2021-05 00:00: 00 Yes [id number] 1mg inject 1 mg under the skin weekly. [facility] glimepiride 2 mg tablet 2021-05 00:00: 00 Yes [id number] 2mg Take 1 tablet by mouth 2 (two) times daily before breakfast and dinner. [facility]z [facility] 10 mg tablet 2021-05 00:00: 00 Yes [id number] 10mg Take 1 tablet by mouth in the morning. [facility] semaglutide (OZEMPIC) 1 mg/dose (4 mg/3 mL) PnIj 2021-05 00:00: 00 Yes [id number] 1mg inject 1 mg under the skin weekly. [facility] glimepiride 2 mg tablet 2021-05 00:00: 00 Yes [id number] 2mg Take 1 tablet by mouth 2 (two) times daily before breakfast and dinner. [facility] dapaglifloz in ([facility]) 10 mg tablet 2021-05 00:00: 00 Yes [id number] 10mg Take 1 tablet by mouth in the morning. [facility] semaglutide (OZEMPIC) 1 mg/dose (4 mg/3 mL) [facility] 2021-05 00:00: 00 Yes [id number] 1mg inject 1 mg under the skin weekly. [facility] glimepiride 2 mg tablet 2021-05 00:00: 00 Yes [id number] 2mg Take 1 tablet by mouth 2 (two) times daily before breakfast and dinner. [facility]loz [facility] 10 mg tablet 2021-05 00:00: 00 Yes [id number] 10mg Take 1 tablet by mouth in the morning. [facility] semaglutide (OZEMPIC) 1 mg/dose (4 mg/3 mL) Ij 2021-05 00:00: 00 Yes [id number] 1mg inject 1 mg under the skin weekly. [facility] glimepiride 2 mg tablet 2021-05 00:00: 00 Yes [id number] 2mg Take 1 tablet by mouth 2 (two) times daily before breakfast and dinner. [facility] dapaglifloz in ([facility]) 10 mg tablet 2021-05 00:00: 00 Yes [id number] 10mg Take 1 tablet by mouth in the morning. [facility] semaglutide (OZEMPIC) 1 mg/dose (4 mg/3 mL) PnIj 2021-05 00:00: 00 Yes [id number] 1mg inject 1 mg under the skin weekly. [facility] glimepiride 2 mg tablet 2021-05 0-11 00:00: 00 Yes [id number] 2mg Take 1 tablet by mouth 2 (two) times daily before breakfast and dinner. [facility] semaglutide (OZEMPIC) 1 mg/dose (4 mg/3 mL) PnIj 2021-05 0-11 00:00: 00 Yes [id number] 1mg inject 1 mg under the skin weekly. [facility] glimepiride 2 mg tablet 2021-05 0 00:00: 00 10-18 00:00 :00 No [id number] 2mg Take 1 tablet by mouth 2 (two) times daily before breakfast and dinner. [facility] semaglutide (OZEMPIC) 1 mg/dose (4 mg/3 mL) PnIj 2021-05 0 00:00: 00 10-18 00:00 :00 No [id number] 1mg inject 1 mg under the skin weekly. [facility] glimepiride 2 mg tablet 2021-05 0 00:00: 00 10-18 00:00 :00 No [id number] 2mg Take 1 tablet by mouth 2 (two) times daily before breakfast and dinner. [facility] semaglutide (OZEMPIC) 1 mg/dose (4 mg/3 mL) PnIj 2021-05 0 00:00: 00 10-18 00:00 :00 No [id number] 1mg inject 1 mg under the skin weekly. [facility] dapaglifloz in ([facility]) 10 mg tablet 2021-05 0-11 00:00: 00 10-06 00:00 :00 No [id number] 10mg Take 1 tablet by mouth in the morning. [facility] vilazodone 20 mg 2021- 0-10 00:00: 00 Yes [facility] vilazodone 20 mg 2021- 0-10 00:00: 00 Yes [facility] vilazodone 20 mg 2021- 0-10 00:00: 00 Yes [facility] vilazodone 20 mg 2-1 0-10 00:00: 00 Yes [facility] vilazodone 20 mg 2-1 0-10 00:00: 00 Yes [facility] vilazodone 20 mg 2-1 0-10 00:00: 00 Yes [facility] vilazodone 20 mg 2-1 0-10 00:00: 00 10-18 00:00 :00 No [facility] vilazodone 20 mg 2-1 0-10 00:00: 00 10-18 00:00 :00 No [facility] semaglutide (OZEMPIC) 1 mg/dose (4 mg/3 mL) PnIj 08-23 00:00: 00 Yes [id number] 1mg inject 1 mg under the skin weekly. [facility] glimepiride 2 mg tablet 08-23 00:00: 00 Yes [id number] 2mg Take 1 tablet by mouth 2 (two) times daily before breakfast and dinner. [facility] dapaglifloz in ([facility]) 10 mg tablet 2021-0 08-23 00:00: 00 Yes [id number] 10mg Take 1 tablet by mouth daily. [facility] semaglutide (OZEMPIC) 1 mg/dose (4 mg/3 mL) PnIj 0 08-23 00:00: 00 Yes [id number] 1mg inject 1 mg under the skin weekly. [facility] glimepiride 2 mg tablet 0 08-23 00:00: 00 Yes [id number] 2mg Take 1 tablet by mouth 2 (two) times daily before breakfast and dinner. [facility] dapaglifloz in ([facility]) 10 mg tablet 0 08-23 00:00: 00 Yes [id number] 10mg Take 1 tablet by mouth daily. [facility] semaglutide (OZEMPIC) 1 mg/dose (4 mg/3 mL) PnIj 0 - 00:00: 00 Yes [id number] 1mg inject 1 mg under the skin weekly. [facility] glimepiride 2 mg tablet 0 08-23 00:00: 00 Yes [id number] 2mg Take 1 tablet by mouth 2 (two) times daily before breakfast and dinner. [facility] d[facility]lifloz in ([facility] [facility] 10 mg tablet 0 08-23 00:00: 00 Yes [id number] 10mg Take 1 tablet by mouth daily. [facility] semaglutide (OZEMPIC) 1 mg/dose (4 mg/3 mL) PnIj 0 08-23 00:00: 00 Yes [id number] 1mg inject 1 mg under the skin weekly. [facility] glimepiride 2 mg tablet 08-23 00:00: 00 Yes [id number] 2mg Take 1 tablet by mouth 2 (two) times daily before breakfast and dinner. [facility] dapaglifloz in ([facility]) 10 mg tablet 08-23 00:00: 00 Yes [id number] 10mg Take 1 tablet by mouth daily. [facility] semaglutide (OZEMPIC) 1 mg/dose (4 mg/3 mL) PnIj 0 08-23 00:00: 00 Yes [id number] 1mg inject 1 mg under the skin weekly. [facility] glimepiride 2 mg tablet 2021-0 08-23 00:00: 00 Yes [id number] 2mg Take 1 tablet by mouth 2 (two) times daily before breakfast and dinner. [facility] dapaglifloz in ([facility]) 10 mg tablet 2021-0 08-23 00:00: 00 Yes [id number] 10mg Take 1 tablet by mouth daily. [facility] semaglutide (OZEMPIC) 1 mg/dose (4 mg/3 mL) PnIj 0 08-23 00:00: 00 Yes [id number] 1mg inject 1 mg under the skin weekly. [facility] glimepiride 2 mg tablet 2021-0 - 00:00: 00 Yes [id number] 2mg Take 1 tablet by mouth 2 (two) times daily before breakfast and dinner. [facility] dapaglifloz in ([facility]) 10 mg tablet 08-23 00:00: 00 Yes [id number] 10mg Take 1 tablet by mouth daily. [facility] glimepiride 2 mg tablet 08-23 00:00: 00 02-22 00:00 :00 No [id number] 2mg Take 1 tablet by mouth 2 (two) times daily before breakfast and dinner. [facility] dapaglifloz in ([facility]) 10 mg tablet 08-23 00:00: 00 02-22 00:00 :00 No [id number] 10mg Take 1 tablet by mouth daily. [facility] semaglutide (OZEMPIC) 1 mg/dose (4 mg/3 mL) Ij 08-23 00:00: 00 02-22 00:00 :00 No [id number] 1mg inject 1 mg under the skin weekly. [facility] glimepiride 2 mg tablet 08-23 00:00: 00 02-22 00:00 :00 No [id number] 2mg Take 1 tablet by mouth 2 (two) times daily before breakfast and dinner. [facility] dapaglifloz in ([facility]) 10 mg tablet 08-23 00:00: 00 02-22 00:00 :00 No [id number] 10mg Take 1 tablet by mouth daily. [facility] semaglutide (OZEMPIC) 1 mg/dose (4 mg/3 mL) PnIj 08-23 00:00: 00 02-22 00:00 :00 No [id number] 1mg inject 1 mg under the skin weekly. [facility] valACYclovi r 500 mg tablet 18 00:00: 00 Yes 500mg Take 500 mg by mouth 2 (two) times daily. [facility] valACYclovi r 500 mg tablet 18 00:00: 00 Yes 500mg Take 500 mg by mouth 2 (two) times daily. [facility] valACYclovi r 500 mg tablet 18 00:00: 00 Yes 500mg Take 500 mg by mouth 2 (two) times daily. [facility] valACYclovi r 500 mg tablet 2021-0 3-18 00:00: 00 Yes 500mg Take 500 mg by mouth 2 (two) times daily. [facility] valACYclovi r 500 mg tablet 2021-0 3-18 00:00: 00 Yes 500mg Take 500 mg by mouth 2 (two) times daily. [facility] valACYclovi r 500 mg tablet 2021-0 318 00:00: 00 Yes 500mg Take 500 mg by mouth 2 (two) times daily. [facility] valACYclovi r 500 mg tablet 2021-0 18 00:00: 00 Yes 500mg Take 500 mg by mouth 2 (two) times daily. [facility] valACYclovi r 500 mg tablet 2021-0 318 00:00: 00 Yes 500mg Take 500 mg by mouth 2 (two) times daily. [facility] valACYclovi r 500 mg tablet 2021-0 18 00:00: 00 Yes 500mg Take 500 mg by mouth 2 (two) times daily. [facility] valACYclovi r 500 mg tablet 2021-0 18 00:00: 00 Yes 500mg Take 500 mg by mouth 2 (two) times daily. [facility] valACYclovi r 500 mg tablet 2021-0 318 00:00: 00 Yes 500mg Take 500 mg by mouth 2 (two) times daily. [facility] valACYclovi r 500 mg tablet 2021-0 318 00:00: 00 Yes 500mg Take 500 mg by mouth 2 (two) times daily. [facility] valACYclovi r 500 mg tablet 2-0 3-18 00:00: 00 Yes 500mg Take 500 mg by mouth 2 (two) times daily. [facility] valACYclovi r 500 mg tablet 2-0 3-18 00:00: 00 Yes 500mg Take 500 mg by mouth 2 (two) times daily. [facility] valACYclovi r 500 mg tablet 2021-0 3-18 00:00: 00 Yes 500mg Take 500 mg by mouth 2 (two) times daily. [facility]-0 3-18 00:00: 00 Yes 500mg Take 500 mg by mouth 2 (two) times daily. [facility] tablet 2-0 3-18 00:00: 00 Yes 500mg Take 500 mg by mouth 2 (two) times daily. [facility] mg tablet 2-0 3-18 00:00: 00 Yes 500mg Take 500 mg by mouth 2 (two) times daily. [facility] mg tablet 2-0 3-18 00:00: 00 Yes 500mg Take 500 mg by mouth 2 (two) times daily. [facility] mg tablet 2-0 3-18 00:00: 00 Yes 500mg Take 500 mg by mouth 2 (two) times daily. [facility] mg tablet 2-0 3-18 00:00: 00 Yes 500mg Take 500 mg by mouth 2 (two) times daily. [facility] mg tablet 2-0 3-18 00:00: 00 Yes 500mg Take 500 mg by mouth 2 (two) times daily. [facility] valACYclovi r 500 mg tablet 2-0 3-18 00:00: 00 Yes 500mg Take 500 mg by mouth 2 (two) times daily. [facility] VRAYLAR 1.5 mg Cap 2022-0 3-13 00:00: 00 Yes [facility] VRAYLAR 1.5 mg Cap 2022-0 3-13 00:00: 00 Yes [facility] VRAYLAR 1.5 mg Cap 2022-0 3-13 00:00: 00 Yes [facility] VRAYLAR 1.5 mg Cap 2022-0 3-13 00:00: 00 Yes [facility] VRAYLAR 1.5 mg Cap 2022-0 3-13 00:00: 00 Yes [facility] VRAYLAR 1.5 mg Cap 2-0 3-13 00:00: 00 Yes [facility] VRAYLAR 1.5 mg Cap 2-0 3-13 00:00: 00 Yes [facility] VRAYLAR 1.5 mg Cap 2-0 3-13 00:00: 00 Yes [facility] VRAYLAR 1.5 mg Cap 2-0 3-13 00:00: 00 Yes [facility] VRAYLAR 1.5 mg Cap 2-0 3-13 00:00: 00 Yes [facility] VRAYLAR 1.5 mg Cap 2-0 3-13 00:00: 00 Yes [facility] VRAYLAR 1.5 mg Cap 2-0 3-13 00:00: 00 Yes [facility] VRAYLAR 1.5 mg Cap 2-0 3-13 00:00: 00 10-18 00:00 :00 No [facility] VRAYLAR 1.5 mg Cap 2-0 3-13 00:00: 00 10-18 00:00 :00 No [facility] dapaglifloz in ([facility]) 10 mg tablet 2020-05 00:00: 00 08-23 00:00 :00 No [id number] 10mg Take 1 tablet by mouth daily. [facility] glimepiride 2 mg tablet 2020-05 00:00: 00 08-23 00:00 :00 No [id number] 2mg Take 1 tablet by mouth daily with breakfast. [facility] semaglutide (OZEMPIC) 1 mg/dose (4 mg/3 mL) PnIj 2020-05 00:00: 00 08-23 00:00 :00 No [id number] 1mg inject 1 mg under the skin weekly. [facility] dapaglifloz in ([facility]) 10 mg tablet 2020-05 00:00: 00 08-23 00:00 :00 No [id number] 10mg Take 1 tablet by mouth daily. [facility] glimepiride 2 mg tablet 2020-05 00:00: 00 08-23 00:00 :00 No [id number] 2mg Take 1 tablet by mouth daily with breakfast. [facility] semaglutide (OZEMPIC) 1 mg/dose (4 mg/3 mL) PnIj 2020-05 00:00: 00 08-23 00:00 :00 No [id number] 1mg inject 1 mg under the skin weekly. [facility] Lancets (ACCU-CHEK FASTCLIX LANCET DRUM) [facility] [place] 2019-05 00:00: 00 Yes Use to check blood sugar 1X daily. DX:E11.65 [facility] blood sugar diagnostic (ACCU-CHEK GUIDE TEST STRIPS) strip 2019-05 00:00: 00 Yes Use to check blood sugar 1X daily. DX:E11.65 [facility] Blood-Gluco se Meter (ACCU-CHEK GUIDE GLUCOSE METER) [facility] [place] 2019-05 00:00: 00 Yes Use to check blood sugar 1X daily. DX:E11.65 [facility] Lancets (ACCU-CHEK FASTCLIX LANCET DRUM) [facility] [place] 2019-05 00:00: 00 Yes Use to check blood sugar 1X daily. DX:E11.65 [facility] blood sugar diagnostic (ACCU-CHEK GUIDE TEST STRIPS) strip 2019-05 00:00: 00 Yes Use to check blood sugar 1X daily. DX:E11.65 [facility] Blood-Gluco se Meter (ACCU-CHEK GUIDE GLUCOSE METER) [facility] [place] 2019-05 00:00: 00 Yes Use to check blood sugar 1X daily. DX:E11.65 [facility] Lancets (ACCU-CHEK FASTCLIX LANCET DRUM) [facility] [place] 2019-05 00:00: 00 Yes Use to check blood sugar 1X daily. DX:E11.65 [facility] blood sugar diagnostic (ACCU-CHEK GUIDE TEST STRIPS) strip 2019-05 00:00: 00 Yes Use to check blood sugar 1X daily. DX[facility]E11.65 [facility] (ACCU-CHEK GUIDE GLUCOSE METER) [facility] [place] 2019-05 00:00: 00 Yes Use to check blood sugar 1X daily. DX:E11.65 [facility] Lancets (ACCU-CHEK FASTCLIX LANCET DRUM) [facility] [place] [facility] 2019-05 00:00: 00 Yes Use to check blood sugar 1X daily. DX:E11.65 [facility] blood sugar diagnostic (ACCU-CHEK GUIDE TEST STRIPS) strip 2019-05 00:00: 00 Yes Use to check blood sugar 1X daily. DX:E11.65 [facility] Blood-Gluco se Meter (ACCU-CHEK GUIDE GLUCOSE METER) [facility] [place] 2019-05 00:00: 00 Yes Use to check blood sugar 1X daily. DX:E11.65 [facility] Lancets (ACCU-CHEK FASTCLIX LANCET DRUM) [facility] [place] 2019-05 00:00: 00 Yes Use to check blood sugar 1X daily. DX:E11.65 [facility] blood sugar diagnostic (ACCU-CHEK GUIDE TEST STRIPS) strip 2019-05 00:00: 00 Yes Use to check blood sugar 1X daily. DX:E11.65 [facility] Blood-Gluco se Meter (ACCU-CHEK GUIDE GLUCOSE METER) [facility] [place] 2019-05 00:00: 00 Yes Use to check blood sugar 1X daily. DX:E11.65 [facility] Lancets (ACCU-CHEK FASTCLIX LANCET DRUM) [facility] [place] 2019-05 00:00: 00 Yes Use to check blood sugar 1X daily. DX:E11.65 [facility] blood sugar diagnostic (ACCU-CHEK GUIDE TEST STRIPS) strip 2019-05 00:00: 00 Yes Use to check blood sugar 1X daily. DX:E11.65 [facility] Blood-Gluco se Meter (ACCU-CHEK GUIDE GLUCOSE METER) [facility] [place] 2019-05 00:00: 00 Yes Use to check blood sugar 1X daily. DX:E11.65 [facility] Lancets (ACCU-CHEK FASTCLIX LANCET DRUM) [facility] [place] 2019-05 00:00: 00 Yes Use to check blood sugar 1X daily. DX:E11.65 [facility] blood sugar diagnostic (ACCU-CHEK GUIDE TEST STRIPS) strip 2019-05 00:00: 00 Yes Use to check blood sugar 1X daily. DX:E11.65 [facility] Blood-Gluco se Meter (ACCU-CHEK GUIDE GLUCOSE METER) [facility] [place] [facility] 2019-05 00:00: 00 Yes Use to check blood sugar 1X daily. DX:E11.65 [facility] Lancets (ACCU-CHEK FASTCLIX LANCET DRUM) [facility] [place] 2019-05 00:00: 00 Yes Use to check blood sugar 1X daily. DX:E11.65 [facility] blood sugar diagnostic (ACCU-CHEK GUIDE TEST STRIPS) strip 2019-05 00:00: 00 Yes Use to check blood sugar 1X daily. DX:E11.65 [facility] Blood-Gluco se Meter (ACCU-CHEK GUIDE GLUCOSE METER) [facility] [place] 2019-05 00:00: 00 Yes Use to check blood sugar 1X daily. DX:E11.65 [facility] Lancets (ACCU-CHEK FASTCLIX LANCET DRUM) [facility] [place] 2019-05 00:00: 00 Yes Use to check blood sugar 1X daily. DX:E11.65 [facility] blood sugar diagnostic (ACCU-CHEK GUIDE TEST STRIPS) strip 2019-05 00:00: 00 Yes Use to check blood sugar 1X daily. DX:E11.65 [facility] Blood-Gluco se Meter (ACCU-CHEK GUIDE GLUCOSE METER) [facility] [place] 2019-05 00:00: 00 Yes Use to check blood sugar 1X daily. DX:E11.65 [facility] Lancets (ACCU-CHEK FASTCLIX LANCET DRUM) [facility] [place] [facility] 2019-05 00:00: 00 Yes Use to check blood sugar 1X daily. DX:E11.65 [facility] blood sugar diagnostic (ACCU-CHEK GUIDE TEST STRIPS) strip 2019-05 00:00: 00 Yes Use to check blood sugar 1X daily. DX[facility]E11.65 [facility] (ACCU-CHEK GUIDE GLUCOSE METER) [facility] [place] 2019-05 00:00: 00 Yes Use to check blood sugar 1X daily. DX:E11.65 [facility] Lancets (ACCU-CHEK FASTCLIX LANCET DRUM) [facility] [place] [facility] 2019-05 00:00: 00 Yes Use to check blood sugar 1X daily. DX:E11.65 [facility] blood sugar diagnostic (ACCU-CHEK GUIDE TEST STRIPS) strip 2019-05 00:00: 00 Yes Use to check blood sugar 1X daily. DX:E11.65 [facility] Blood-Gluco se Meter (ACCU-CHEK GUIDE GLUCOSE METER) [facility] [place] 2019-05 00:00: 00 Yes Use to check blood sugar 1X daily. DX:E11.65 [facility] Lancets (ACCU-CHEK FASTCLIX LANCET DRUM) [facility] [place] [facility] 2019-05 00:00: 00 Yes Use to check blood sugar 1X daily. DX:E11.65 [facility] blood sugar diagnostic (ACCU-CHEK GUIDE TEST STRIPS) strip 2019-05 00:00: 00 Yes Use to check blood sugar 1X daily. DX:E11.65 [facility] Blood-Gluco se Meter (ACCU-CHEK GUIDE GLUCOSE METER) [facility] [place] 2019-05 00:00: 00 Yes Use to check blood sugar 1X daily. DX:E11.65 [facility] Lancets (ACCU-CHEK FASTCLIX LANCET DRUM) [facility] [place] 2019-05 00:00: 00 Yes Use to check blood sugar 1X daily. DX:E11.65 [facility] blood sugar diagnostic (ACCU-CHEK GUIDE TEST STRIPS) strip 2019-05 00:00: 00 Yes Use to check blood sugar 1X daily. DX:E11.65 [facility] Blood-Gluco se Meter (ACCU-CHEK GUIDE GLUCOSE METER) [facility] [place] 2019-05 00:00: 00 Yes Use to check blood sugar 1X daily. DX:E11.65 [facility] Lancets (ACCU-CHEK FASTCLIX LANCET DRUM) [facility] [place] 2019-05 00:00: 00 Yes Use to check blood sugar 1X daily. DX:E11.65 [facility] blood sugar diagnostic (ACCU-CHEK GUIDE TEST STRIPS) strip 2019-05 00:00: 00 Yes Use to check blood sugar 1X daily. DX:E11.65 [facility] Blood-Gluco se Meter (ACCU-CHEK GUIDE GLUCOSE METER) [facility] [place] [facility] 2019-05 00:00: 00 Yes Use to check blood sugar 1X daily. DX:E11.65 [facility] Lancets (ACCU-CHEK FASTCLIX LANCET DRUM) [facility] [place] 2019-05 00:00: 00 Yes Use to check blood sugar 1X daily. DX:E11.65 [facility] blood sugar diagnostic (ACCU-CHEK GUIDE TEST STRIPS) strip 2019-05 00:00: 00 Yes Use to check blood sugar 1X daily. DX:E11.65 [facility] Blood-Gluco se Meter (ACCU-CHEK GUIDE GLUCOSE METER) [facility] [place] 2019-05 00:00: 00 Yes Use to check blood sugar 1X daily. DX:E11.65 [facility] Lancets (ACCU-CHEK FASTCLIX LANCET DRUM) [facility] [place] 2019-05 00:00: 00 Yes Use to check blood sugar 1X daily. DX:E11.65 [facility] blood sugar diagnostic (ACCU-CHEK GUIDE TEST STRIPS) strip 2019-05 00:00: 00 Yes Use to check blood sugar 1X daily. DX:E11.65 [facility] Blood-Gluco se Meter (ACCU-CHEK GUIDE GLUCOSE METER) [facility] [place] 2019-05 00:00: 00 Yes Use to check blood sugar 1X daily. DX:E11.65 [facility] Lancets (ACCU-CHEK FASTCLIX LANCET DRUM) [facility] [place] 2019-05 00:00: 00 Yes Use to check blood sugar 1X daily. DX[facility]E11.65 [facility] (ACCU-CHEK GUIDE TEST STRIPS) strip 2019-05 00:00: 00 Yes Use to check blood sugar 1X daily. DX:E11.65 [facility] Blood-[facility]uco [facility] Meter (ACCU-CHEK GUIDE GLUCOSE METER) [facility] [place] 2019-05 00:00: 00 Yes Use to check blood sugar 1X daily. DX:E11.65 [facility] (ACCU-CHEK FASTCLIX LANCET DRUM) [facility] [place] [facility] 2019-05 00:00: 00 Yes Use to check blood sugar 1X daily. DX:E11.65 [facility] (ACCU-CHEK GUIDE TEST STRIPS) strip 2019-05 00:00: 00 Yes Use to check blood sugar 1X daily. DX:E11.65 [facility] Blood-Gluco se Meter (ACCU-CHEK GUIDE GLUCOSE METER) [facility] [place] 2019-05 00:00: 00 Yes Use to check blood sugar 1X daily. DX:E11.65 [facility] Lancets (ACCU-CHEK FASTCLIX LANCET DRUM) [facility] [place] 2019-05 00:00: 00 Yes Use to check blood sugar 1X daily. DX:E11.65 [facility] blood sugar diagnostic (ACCU-CHEK GUIDE TEST STRIPS) strip 2019-05 00:00: 00 Yes Use to check blood sugar 1X daily. DX:E11.65 [facility] (ACCU-CHEK GUIDE GLUCOSE METER) [facility] [place] [facility] 2019-05 00:00: 00 Yes Use to check blood sugar 1X daily. DX:E11.65 [facility] (ACCU-CHEK FASTCLIX LANCET DRUM) [facility] [place] 2019-05 00:00: 00 Yes Use to check blood sugar 1X daily. DX:E11.65 [facility] (ACCU-CHEK GUIDE TEST STRIPS) strip 2019-05 00:00: 00 Yes Use to check blood sugar 1X daily. DX:E11.65 [facility] Blood-[facility]uco [facility] Meter (ACCU-CHEK GUIDE GLUCOSE METER) [facility] [place] 2019-05 00:00: 00 Yes Use to check blood sugar 1X daily. DX:E11.65 [facility] Lancets (ACCU-CHEK FASTCLIX LANCET DRUM) [facility] [place] 2019-05 00:00: 00 Yes Use to check blood sugar 1X daily. DX:E11.65 [facility] blood sugar diagnostic (ACCU-CHEK GUIDE TEST STRIPS) strip 2019-05 00:00: 00 Yes Use to check blood sugar 1X daily. DX:E11.65 [facility] Blood-Gluco se Meter (ACCU-CHEK GUIDE GLUCOSE METER) [facility] 2019-05 00:00: 00 Yes Use to check blood sugar 1X daily. DX:E11.65 [facility] Lancets (ACCU-CHEK FASTCLIX LANCET DRUM) [facility] [place] [facility] 2019-05 00:00: 00 Yes Use to check blood sugar 1X daily. DX:E11.65 [facility] blood sugar diagnostic (ACCU-CHEK GUIDE TEST STRIPS) strip 2019-05 00:00: 00 Yes Use to check blood sugar 1X daily. DX:E11.65 [facility] Blood-Gluco se Meter (ACCU-CHEK GUIDE GLUCOSE METER) [facility] [place] [facility] 2019-05 00:00: 00 Yes Use to check blood sugar 1X daily. DX:E11.65 [facility] Lancets (ACCU-CHEK FASTCLIX LANCET DRUM) [facility] [place] [facility] 2019-05 00:00: 00 Yes Use to check blood sugar 1X daily. DX:E11.65 [facility] blood sugar diagnostic (ACCU-CHEK GUIDE TEST STRIPS) strip 2019-05 00:00: 00 Yes Use to check blood sugar 1X daily. DX:E11.65 [facility] Blood-Gluco se Meter (ACCU-CHEK GUIDE GLUCOSE METER) [facility] [place] 2019-05 00:00: 00 Yes Use to check blood sugar 1X daily. DX:E11.65 [facility] Lancets (ACCU-CHEK FASTCLIX LANCET DRUM) [facility] [place] [facility] 2019-05 00:00: 00 Yes Use to check blood sugar 1X daily. DX:E11.65 [facility] blood sugar diagnostic (ACCU-CHEK GUIDE TEST STRIPS) strip 2019-05 00:00: 00 Yes Use to check blood sugar 1X daily. DX:E11.65 [facility] Blood-Gluco se Meter (ACCU-CHEK GUIDE GLUCOSE METER) [facility] [place] [facility] 2019-05 00:00: 00 Yes Use to check blood sugar 1X daily. DX:E11.65 [facility] atorvastati n 40 mg tablet 2019-05 10:23: 31 Yes 40mg Take 40 mg by mouth at bedtime. [facility] atorvastati n 40 mg tablet 2019-05 10:23: 31 Yes 40mg Take 40 mg by mouth at bedtime. [facility] atorvastati n 40 mg tablet 2019-05 10:23: 31 Yes 40mg Take 40 mg by mouth at bedtime. [facility] atorvastati n 40 mg tablet 2019-05 10:23: 31 Yes 40mg Take 40 mg by mouth at bedtime. [facility] atorvastati n 40 mg tablet 2019-05 10:23: 31 Yes 40mg Take 40 mg by mouth at bedtime. [facility] atorvastati n 40 mg tablet 2019-05 10:23: 31 Yes 40mg Take 40 mg by mouth at bedtime. [facility] atorvastati n 40 mg tablet 2019-05 10:23: 31 Yes 40mg Take 40 mg by mouth at bedtime. [facility] atorvastati n 40 mg tablet 2019-05 10:23: 31 Yes 40mg Take 40 mg by mouth at bedtime. [facility] atorvastati n 40 mg tablet 2019-05 10:23: 31 Yes 40mg Take 40 mg by mouth at bedtime. [facility] atorvastati n 40 mg tablet 2019-05 10:23: 31 Yes 40mg Take 40 mg by mouth at bedtime. [facility] atorvastati n 40 mg tablet 2019-05 10:23: 31 Yes 40mg Take 40 mg by mouth at bedtime. [facility] atorvastati n 40 mg tablet 2019-05 10:23: 31 Yes 40mg Take 40 mg by mouth at bedtime. [facility] atorvastati n 40 mg tablet 2019-05 10:23: 31 Yes 40mg Take 40 mg by mouth at bedtime. [facility] ezetimibe 10 mg tablet 2019-05 10:23: 16 Yes 10mg Take 10 mg by mouth daily. [facility] ezetimibe 10 mg tablet 2019-05 10:23: 16 Yes 10mg Take 10 mg by mouth daily. [facility] ezetimibe 10 mg tablet 2019-05 10:23: 16 Yes 10mg Take 10 mg by mouth daily. [facility] ezetimibe 10 mg tablet 2019-05 10:23: 16 Yes 10mg Take 10 mg by mouth daily. [facility] ezetimibe 10 mg tablet 2019-05 10:23: 16 Yes 10mg Take 10 mg by mouth daily. [facility] ezetimibe 10 mg tablet 2019-05 10:23: 16 Yes 10mg Take 10 mg by mouth daily. [facility] ezetimibe 10 mg tablet 2019-05 10:23: 16 Yes 10mg Take 10 mg by mouth daily. [facility] ezetimibe 10 mg tablet 2019-05 10:23: 16 Yes 10mg Take 10 mg by mouth daily. [facility] ezetimibe 10 mg tablet 2019-05 10:23: 16 Yes 10mg Take 10 mg by mouth daily. [facility] ezetimibe 10 mg tablet 2019-05 10:23: 16 Yes 10mg Take 10 mg by mouth daily. [facility] ezetimibe 10 mg tablet 2019-05 10:23: 16 Yes 10mg Take 10 mg by mouth daily. [facility] ezetimibe 10 mg tablet 2019-1 05-16 10:23: 16 Yes 10mg Take 10 mg by mouth daily. [facility] ezetimibe 10 mg tablet 2019-1 - 10:23: 16 Yes 10mg Take 10 mg by mouth daily. [facility]-0 2-17 13:16: 53 Yes Take by mouth. [facility] 2020-0 2-17 13:16: 53 Yes Take by mouth. [facility] 2020-0 2-17 13:16: 53 Yes Take by mouth. [facility] 2020-0 2-17 13:16: 53 Yes Take by mouth. [facility] LISINOPRIL ORAL 2020-0 2-17 13:16: 53 Yes Take by mouth. [facility] LISINOPRIL ORAL 2020-0 2-17 13:16: 53 Yes Take by mouth. [facility]-0 2-17 13:16: 53 Yes Take by mouth. [facility] LISINOPRIL ORAL 2020-0 2-17 13:16: 53 Yes Take by mouth. [facility] LISINOPRIL ORAL 2020-0 2-17 13:16: 53 Yes Take by mouth. [facility] LISINOPRIL ORAL 2020-0 2-17 13:16: 53 Yes Take by mouth. [facility] LISINOPRIL ORAL 2020-0 2-17 13:16: 53 Yes Take by mouth. [facility] LISINOPRIL ORAL 2020-0 2-17 13:16: 53 Yes Take by mouth. [facility] LISINOPRIL ORAL 2020-0 2-17 13:16: 53 Yes Take by mouth. [facility] omeprazole 40 mg capsule 2020-0 2-06 00:00: 00 Yes TK 1 C PO D [facility] 2020-0 2-06 00:00: 00 Yes TK 1 C PO D [facility] omeprazole 40 mg capsule 2020-0 2-06 00:00: 00 Yes TK 1 C PO D [facility] omeprazole 40 mg capsule 2020-0 2-06 00:00: 00 Yes TK 1 C PO D [facility] omeprazole 40 mg capsule 2020-0 2-06 00:00: 00 Yes TK 1 C PO D [facility] omeprazole 40 mg capsule 2020-0 2-06 00:00: 00 Yes TK 1 C PO D [facility] omeprazole 40 mg capsule 2020-0 2-06 00:00: 00 Yes TK 1 C PO D [facility] omeprazole 40 mg capsule 2020-0 2-06 00:00: 00 Yes TK 1 C PO D [facility] omeprazole 40 mg capsule 2020-0 2-06 00:00: 00 Yes TK 1 C PO D [facility] omeprazole 40 mg capsule 2020-0 2-06 00:00: 00 Yes TK 1 C PO D [facility] omeprazole 40 mg capsule 2020-0 2-06 00:00: 00 Yes TK 1 C PO D [facility] omeprazole 40 mg capsule 2020-0 2-06 00:00: 00 Yes TK 1 C PO D [facility] omeprazole 40 mg capsule 2020-0 2-06 00:00: 00 Yes TK 1 C PO D [facility] omeprazole 40 mg capsule 2020-0 2-06 00:00: 00 - 00:00 :00 No TK 1 C PO D [facility] omeprazole 40 mg capsule 2020-0 2-06 00:00: 00 - 00:00 :00 No TK 1 C PO D [facility] haloperidol 5 mg tablet 2020-0 1-30 00:00: 00 Yes [facility] haloperidol 5 mg tablet 2020-0 1-30 00:00: 00 Yes [facility] haloperidol 5 mg tablet 2020-0 1-30 00:00: 00 Yes [facility] haloperidol 5 mg tablet 2020-0 1-30 00:00: 00 Yes [facility] haloperidol 5 mg tablet 2020-0 1-30 00:00: 00 Yes [facility] haloperidol 5 mg tablet 2020-0 30 00:00: 00 Yes [facility] haloperidol 5 mg tablet 2020-0 06-13 00:00: 00 Yes [facility] haloperidol 5 mg tablet 2020-0 06-13 00:00: 00 Yes [facility] haloperidol 5 mg tablet 2020-0 06-13 00:00: 00 Yes [facility] haloperidol 5 mg tablet 2020-0 06-13 00:00: 00 Yes [facility] haloperidol 5 mg tablet 2019-0 06-13 00:00: 00 Yes [facility] haloperidol 5 mg tablet 2019-0 06-13 00:00: 00 Yes [facility] haloperidol 5 mg tablet 2019-0 06-13 00:00: 00 Yes [facility] haloperidol 5 mg tablet 2019-0 06-13 00:00: 00 10-18 00:00 :00 No [facility] haloperidol 5 mg tablet 2019-0 06-13 00:00: 00 10-18 00:00 :00 No [facility] ABILIFY 15 mg tablet 2019-0 06-12 00:00: 00 Yes TK 1 T PO D [facility] benztropine 0.5 mg tablet 2019-0 06-12 00:00: 00 Yes [facility] ABILIFY 15 mg tablet 2020-0 06-12 00:00: 00 Yes TK 1 T PO D [facility] benztropine 0.5 mg tablet 2019-0 06-12 00:00: 00 Yes [facility] ABILIFY 15 mg tablet 2020-0 06-12 00:00: 00 Yes TK 1 T PO D [facility] benztropine 0.5 mg tablet 2020-0 06-12 00:00: 00 Yes [facility] ABILIFY 15 mg tablet 2020-0 06-12 00:00: 00 Yes TK 1 T PO D [facility] benztropine 0.5 mg tablet 2020-0 [...] 1 T PO D [facility] benztropine 0.5 mg tablet 2020-0 [...] 29 00:00: 00 Yes [facility] ABILIFY 15 mg tablet 2020-0 06-12 00:00: 00 Yes TK 1 T PO D [facility] benztropine 0.5 mg tablet 2019-0 06-12 00:00: 00 Yes [facility] ABILIFY 15 mg tablet 2019-0 06-12 00:00: 00 Yes TK 1 T PO D [facility] benztropine 0.5 mg tablet 2019-0 06-12 00:00: 00 Yes [facility] ABILIFY 15 mg tablet 2019-0 06-12 00:00: 00 Yes TK 1 T PO D [facility] benztropine 0.5 mg tablet 2019-0 06-12 00:00: 00 Yes [facility] ABILIFY 15 mg tablet 2019-0 06-12 00:00: 00 Yes TK 1 T PO D [facility] benztropine 0.5 mg tablet 0 06-12 00:00: 00 Yes [facility] ABILIFY 15 mg tablet 2019-0 06-12 00:00: 00 Yes TK 1 T PO D [facility] benztropine 0.5 mg tablet 2019-0 06-12 00:00: 00 Yes [facility] ABILIFY 15 mg tablet 2019-0 06-12 00:00: 00 Yes TK 1 T PO D [facility] benztropine 0.5 mg tablet 0 06-12 00:00: 00 Yes [facility] ABILIFY 15 mg tablet 2019-0 06-12 00:00: 00 10-18 00:00 :00 No TK 1 T PO D [facility] ABILIFY 15 mg tablet 2019-0 06-12 00:00: 00 10-18 00:00 :00 No TK 1 T PO D [facility] hydrOXYzine 25 mg tablet 2018-05 00:00: 00 Yes TK 1 T PO BID [facility] hydrOXYzine 25 mg tablet 2018-05 00:00: 00 Yes TK 1 T PO BID [facility] hydrOXYzine 25 mg tablet 2018-05 00:00: 00 Yes TK 1 T PO BID [facility] hydrOXYzine 25 mg tablet 2018-05 00:00: 00 Yes TK 1 T PO BID [facility] hydrOXYzine 25 mg tablet 2018-05 00:00: 00 Yes TK 1 T PO BID [facility] hydrOXYzine 25 mg tablet 2018-05 00:00: 00 Yes TK 1 T PO BID [facility] hydrOXYzine 25 mg tablet 2018-05 00:00: 00 Yes TK 1 T PO BID [facility] hydrOXYzine 25 mg tablet 2018-05 00:00: 00 Yes TK 1 T PO BID [facility] hydrOXYzine 25 mg tablet 2018-05 00:00: 00 Yes TK 1 T PO BID [facility] hydrOXYzine 25 mg tablet 2018-05 00:00: 00 Yes TK 1 T PO BID [facility] hydrOXYzine 25 mg tablet 2018-05 00:00: 00 Yes TK 1 T PO BID [facility] hydrOXYzine 25 mg tablet 2018-05 00:00: 00 Yes TK 1 T PO BID [facility] hydrOXYzine 25 mg tablet 2018-05 00:00: 00 Yes TK 1 T PO BID [facility] hydrOXYzine 25 mg tablet 2018-05 00:00: 00 10-18 00:00 :00 No TK 1 T PO BID [facility] hydrOXYzine 25 mg tablet 2018-05 00:00: 00 10-18 00:00 :00 No TK 1 T PO BID [facility] Ketoprofen 200 mg C24P 2018-05 00:00: 00 Yes TK 1 C PO ONCE D PRN [facility] Ketoprofen 200 mg C24P 2018-05 00:00: 00 Yes TK 1 C PO ONCE D PRN [facility] Ketoprofen 200 mg C24P 2018-05 00:00: 00 Yes TK 1 C PO ONCE D PRN [facility] Ketoprofen 200 mg C24P 2019- 2 00:00: 00 Yes TK 1 C PO ONCE D PRN [facility] Ketoprofen 200 mg C24P 2019-1 2 00:00: 00 Yes TK 1 C PO ONCE D PRN [facility] Ketoprofen 200 mg C24P 2019- 2 00:00: 00 Yes TK 1 C PO ONCE D PRN [facility] Ketoprofen 200 mg C24P 2019- 2 00:00: 00 Yes TK 1 C PO ONCE D PRN [facility] Ketoprofen 200 mg C24P 2019-07-08 00:00: 00 Yes TK 1 C PO ONCE D PRN [facility] Ketoprofen 200 mg C24P 2019-07-08 00:00: 00 Yes TK 1 C PO ONCE D PRN [facility] Ketoprofen 200 mg C24P 2019- 2 00:00: 00 Yes TK 1 C PO ONCE D PRN [facility] Ketoprofen 200 mg C24P 2019-07-08 00:00: 00 Yes TK 1 C PO ONCE D PRN [facility] Ketoprofen 200 mg C24P 2019-07-08 00:00: 00 Yes TK 1 C PO ONCE D PRN [facility] Ketoprofen 200 mg C24P 2018-07-08 00:00: 00 Yes TK 1 C PO ONCE D PRN [facility] Ketoprofen 200 mg C24P 2019- 2 00:00: 00 Yes TK 1 C PO ONCE D PRN [facility] Ketoprofen 200 mg C24P 2019-1 2 00:00: 00 Yes TK 1 C PO ONCE D PRN [facility] Ketoprofen 200 mg C24P 2019-1 2 00:00: 00 Yes TK 1 C PO ONCE D PRN [facility] Ketoprofen 200 mg C24P 2019-1 2 00:00: 00 Yes TK 1 C PO ONCE D PRN [facility] Ketoprofen 200 mg C24P 2019- 2 00:00: 00 Yes TK 1 C PO ONCE D PRN [facility] Ketoprofen 200 mg C24P 2018-05 00:00: 00 Yes TK 1 C PO ONCE D PRN [facility] Ketoprofen 200 mg C24P 2018-05 00:00: 00 Yes TK 1 C PO ONCE D PRN [facility] Ketoprofen 200 mg C24P 2018-05 00:00: 00 Yes TK 1 C PO ONCE D PRN [facility] Ketoprofen 200 mg C24P 2018-05 00:00: 00 Yes TK 1 C PO ONCE D PRN [facility] Ketoprofen 200 mg C24P 2018-05 00:00: 00 Yes TK 1 C PO ONCE D PRN [facility] Ketoprofen 200 mg C24P 2018-05 00:00: 00 Yes TK 1 C PO ONCE D PRN [facility] Immunizations Ordered Immunization Name Filled Immunization Name Date Status Comments Source Influenza Virus Vaccine 2020-01-18 00:00:00 Completed [facility] Influenza Virus Vaccine 2020-01-18 00:00:00 Completed [facility] Influenza Virus Vaccine 2020-01-18 00:00:00 Completed [facility] Influenza Virus Vaccine 2020-01-18 00:00:00 Completed [facility] Influenza Virus Vaccine 2020-01-18 00:00:00 Completed [facility] Influenza Virus Vaccine 2020-01-18 00:00:00 Completed [facility] Influenza Virus Vaccine 2020-01-18 00:00:00 Completed [facility] Influenza Virus Vaccine 2020-01-18 00:00:00 Completed [facility] Influenza Virus Vaccine 2020-01-18 00:00:00 Completed [facility] Influenza Virus Vaccine 2020-01-18 00:00:00 Completed [facility] Influenza Virus Vaccine 2020-01-18 00:00:00 Completed [facility] Influenza Virus Vaccine 2020-01-18 00:00:00 Completed [facility] Influenza Virus Vaccine 2020-01-18 00:00:00 Completed [facility] Influenza Virus Vaccine 2020-01-18 00:00:00 Completed [facility] Influenza Virus Vaccine 2020-01-18 00:00:00 Completed [facility] Influenza Virus Vaccine 2020-01-18 00:00:00 Completed [facility] Influenza Virus Vaccine Unknown Completed [facility] Influenza Virus Vaccine Unknown Completed [facility] Influenza Virus Vaccine Unknown Completed [facility] Influenza Virus Vaccine Unknown Completed [facility] Influenza Virus Vaccine Unknown Completed [facility] Influenza Virus Vaccine Unknown Completed [facility] Influenza Virus Vaccine Unknown Completed [facility] Influenza Virus Vaccine Unknown Completed [facility] Vital Signs Vital Name Observation Time Observation Value Comments S ource Heart rate 2023-04-28 17:35:00 94 /min [facility] Body height 2023-04-28 17:35:00 172.7 cm [facility] Body weight 2023-04-28 17:35:00 136.261 kg [facility] BMI 2023-04-28 17:35:00 45.68 kg/m2 [facility] Oxygen saturation in Arterial blood by Pulse oximetry 2023-04-28 17:35:00 94 /min [facility] Systolic blood pressure 2022-10-18 18:09:00 123 mm[Hg] [facility] Diastolic blood pressure 2022-10-18 18:09:00 94 mm[Hg] [facility] acute hospital Heart rate 2022-10-18 18:09:00 98 /min [facility] Body height 2022-10-18 18:09:00 172.7 cm [facility] Body weight 2022-10-18 18:09:00 135.353 kg [facility] BMI 2022-10-18 18:09:00 45.37 kg/m2 [facility] Systolic blood pressure 2022-02-22 17:29:00 128 mm[Hg] [facility] acute hospital Diastolic blood pressure 2022-02-22 17:29:00 89 mm[Hg] [facility] acute hospital Heart rate 2022-02-22 17:29:00 105 /min [facility] Body height 2022-02-22 17:29:00 172.7 cm [facility] Body weight 2022-02-22 17:29:00 133.811 kg [facility] BMI 2022-02-22 17:29:00 44.85 kg/m2 [facility] Oxygen saturation in Arterial blood by Pulse oximetry 2022-02-22 17:29:00 94 /min [facility] Heart rate 2021-08-23 18:15:00 112 /min [facility] Body height 2021-08-23 18:15:00 172.7 cm [facility] Body weight 2021-08-23 18:15:00 134.718 kg [facility] BMI 2021-08-23 18:15:00 45.16 kg/m2 [facility] Oxygen saturation in Arterial blood by Pulse oximetry 2021-08-23 18:15:00 91 /min [facility] Procedures Procedure Date / Time Performed Performing Clinicia n Source POCT HEMOGLOBIN A1C TEST 2023-04-28 17:37:00 Suzanna Calvillo [facility] ASSIGNMENT OF BENEFITS 2023-04-28 17:03:13 Docto r Unassigned, [place] [facility] POCT HEMOGLOBIN A1C TEST 2022-10-18 18:12:00 Suzanna Calvillo [facility] POCT HEMOGLOBIN A1C TEST 2022-02-22 17:33:00 Janna Hernandes [facility] ASSIGNMENT OF BENEFITS 2022-02-22 17:18:51 Docto r Unassigned, [place] [facility] POCT HEMOGLOBIN A1C TEST 2021-08-23 18:20:00 Inge Caba [facility] Encounters Start Date/Time End Date/Time Encounter Type Admission Type Attending Clinicians Care Facility Care Department Encounter ID Source 2023-08-25 13:00:00 2023-08-25 13:00:00 Outpatient R USZANNA CALVILLO [facility] [id number] [facility] 2023-07-18 00:00:00 2023-07-18 00:00:00 [facility] 1.2.840.114 350.1.13.10 4.2.7.2.686 [id number] [facility] 2023-07-05 00:00:00 2023-07-05 00:00:00 [facility] 1.2.840.114 350.1.13.10 4.2.7.2.686 [id number] [facility] 2023-06-21 00:00:00 2023-06-21 00:00:00 [facility] 1.2.840.114 350.1.13.10 4.2.7.2.686 [id number] 220 [id number] [facility] 2023-06-19 00:00:00 2023-06-19 00:00:00 Telephone [facility] 1.2.840.114 350.1.13.10 4.2.7.2.686 [id number] [facility] 2023-05-22 00:00:00 2023-05-22 00:00:00 Telephone [facility] 1.2.840.114 350.1.13.10 4.2.7.2.686 [id number] [facility] 2023-04-28 11:30:00 2023-04-28 14:07:35 Outpatient R SUZANNA CALVILLO [facility] [id number] [facility] 2023-04-28 11:30:00 2023-04-28 14:07:35 Office Visit Karli [facility] 1.2.840.114 350.1.13.10 4.2.7.2.686 [id number] [facility] 2023-04-28 00:00:00 2023-04-28 00:00:00 Orders Only Doctor Unassigned, [place] [facility] 1.840.114 350.1.13.10 4.2.7.2.686 [id number] [facility] 2023-03-12 00:00:00 2023-03-12 00:00:00 Outpatient GC_GCBZW_Ka diyala_S PRIV PRIV [id number] [facility] 2023-01-31 15:30:00 2023-01-31 15:30:00 Outpatient R GOODSUZANNA DUNCAN [facility] [id number] [facility] 2023-01-24 13:00:00 2023-01-24 13:00:00 Outpatient R [facility]DAK[facility] [id number] [facility] 2022-10-24 00:00:00 2022-10-24 00:00:00 Refill Greta [facility] 1.840.114 350.1.13.10 4.2.7.2.686 [id number] [facility] 2022-10-18 13:00:00 2022-10-18 13:47:23 Outpatient R GOODDAKOTA [facility] [id number] [facility] 2022-10-18 13:00:00 2022-10-18 13:47:23 Office Visit Karli [facility]?TOSHIAVicki [facility] 1.840.114 350.1.13.10 4.2.7.2.686 [id number] [facility] 2022-10-06 00:00:00 2022-10-06 00:00:00 [facility]phone [facility] 1.840.114 350.1.13.10 4.2.7.2.686 [id number] [facility] 2022-08-09 14:00:00 2022-08-09 14:00:00 Outpatient R GRETA [facility] [id number] [facility] 2022-08-08 00:00:00 2022-08-08 00:00:00 Refill Greta [facility]?RONY [facility] 1.840.114 350.1.13.10 4.2.7.2.686 [id number] [facility] 2022-03-17 00:00:00 2022-03-17 00:00:00 Telephone Team, [facility] 1..114 350.1.13.10 4.2.7.2.686 [id number] [facility] 2022-02-22 13:00:00 2022-02-22 13:43:27 Outpatient R GRETA [facility] [id number] [facility] 2022-02-22 13:00:00 2022-02-22 13:43:27 Office Visit Greta [facility] 1.84114 350.1.13.10 4.2.7.2.686 [id number] [facility] 2022-02-22 00:00:00 2022-02-22 00:00:00 Orders Only Doctor Unassigned, [place] [facility] 1.20.114 350.1.13.10 4.2.7.2.686 [id number] [facility] 2022-02-22 00:00:00 2022-02-22 00:00:00 Telephone Hernandes, [facility] 1.2840.114 350.1.13.10 4.2.7.2.686 [id number] [facility] 2021-11-30 16:00:00 2021-11-30 16:00:00 Outpatient R JANNA HERNANDES [facility] [id number] [facility] 2021-11-23 00:00:00 2021-11-23 00:00:00 Telephone Rosales [facility] 1.2840.114 350.1.13.10 4.2.7.2.686 [id number] [facility] 2021-08-26 00:00:00 2021-08-26 00:00:00 Telephone Rosales [facility] BIRD?[facility] 1.2840.114 350.1.13.10 4.2.7.2.686 [id number] [facility] 2021-08-24 00:00:00 2021-08-24 00:00:00 Telephone Rosales [facility] BIRD?[facility] 1.2840.114 350.1.13.10 4.2.7.2.686 [id number] [facility] 2021-08-23 13:30:00 2021-08-23 14:04:25 Outpatient R ROSALES [facility] [id number] [facility] 2021-08-23 13:30:00 2021-08-23 14:04:25 Office Visit Rosales [facility] BIRD[facility] 1.2840.114 350.1.13.10 4.2.7.2.686 [id number] [facility] 2021-08-20 00:00:00 2021-08-20 00:00:00 [facility] 1.2840.114 350.1.13.10 4.2.7.2.686 [id number] [facility] 2021-08-02 11:30:00 2021-08-02 11:30:00 [facility] [id number] 2021-08-02 11:30:00 2021-08-02 11:30:00 Outpatient R ROSALES [facility] [id number] [facility] 2021-08-02 00:00:00 2021-08-02 00:00:00 [facility] 1..840.114 350.1.13.10 4.2.7.2.686 [id number] [facility] 2021-07-07 00:00:00 2021-07-07 00:00:00 Orders Only Doctor Unassigned, [place] [facility] 1..840.114 350.1.13.10 4.2.7.2.686 [id number] [facility] 2021-05-25 00:00:00 2021-05-25 00:00:00 Telephone [facility] 1..840.114 350.1.13.10 4.2.7.2.686 [id number] [facility] 2021-04-21 00:00:00 2021-04-21 00:00:00 Telephone [facility] 1..840.114 350.1.13.10 4.2.7.2.686 [id number] [facility] 2021-03-30 08:45:00 2021-03-30 15:54:44 Outpatient R ROSALES [facility] [id number] [facility] 2021-03-30 08:45:00 2021-03-30 08:45:00 Outpatient R INGE CABA [facility] [id number] [facility] 2021-03-29 13:30:00 2021-03-29 13:30:00 Outpatient R INGE CABA [facility] [id number] [facility] 2021-03-29 11:45:47 2021-03-29 12:15:47 Office Visit Rosales [facility] 1.2.840.114 350.1.13.10 4.2.7.2.686 [id number] [facility] 2021-03-29 11:30:00 2021-03-29 11:30:00 [facility] [id number] [facility] 2021-03-29 00:00:00 2021-03-29 00:00:00 Telephone Rosales [facility] 1.2.840.114 350.1.13.10 4.2.7.2.686 [id number] [facility] 2021-03-14 00:00:00 2021-03-14 00:00:00 Refill Rosales [facility] 1.2.840.114 350.1.13.10 4.2.7.2.686 [id number] [facility] 2021-02-22 10:30:00 2021-02-22 10:30:00 Outpatient R [facility] [id number] [facility] 2021-01-25 13:00:00 2021-01-25 13:00:00 Outpatient R ROSALES [facility] [id number] [facility] 2021-01-22 00:00:00 2021-01-22 00:00:00 Telephone Inge Caba [facility] 1.2.840.114 350.1.13.10 4.2.7.2.686 [id number] [facility] 2020-10-05 13:45:00 2020-10-05 13:45:00 Outpatient R ROSALES [facility] [id number] [facility] 2020-10-05 13:45:00 2020-10-05 13:45:00 Outpatient R ROSALES [facility] [id number] [facility] 2020-09-14 11:00:00 2020-09-14 11:00:00 Outpatient R ROSALES [facility] [id number] [facility] 2020-09-14 09:57:24 2020-09-14 10:54:01 Office Visit Rosales [facility] 1..840.114 350.1.13.10 4.2.7.2.686 [id number] [facility] 2020-09-14 10:00:00 2020-09-14 10:00:00 Outpatient R ROSALES [facility] [id number] [facility] 2020-09-11 00:00:00 2020-09-11 00:00:00 Orders Only Doctor Unassigned, [place] [facility] 1..840.114 350.1.13.10 4.2.7.2.686 [id number] 009 [id number] [facility] 2020-09-08 00:00:00 2020-09-08 00:00:00 Telephone [facility] 1.2.840.114 350.1.13.10 4.2.7.2.686 [id number] 220 [id number] [facility] 2020-09-08 00:00:00 2020-09-08 00:00:00 Telephone Inge Caba [facility] 1.2.840.114 350.1.13.10 4.2.7.2.686 [id number] 220 [id number] [facility] 2020-07-15 00:00:00 2020-07-15 00:00:00 [facility] 1.2.840.114 350.1.13.10 4.2.7.2.686 [id number] 220 [id number] [facility] 2020-05-27 00:00:00 2020-05-27 00:00:00 [facility] 1.2.840.114 350.1.13.10 4.2.7.2.686 [id number] 220 [id number] [facility] 2020-04-16 00:00:00 2020-04-16 00:00:00 Refill [facility] 1.2.840.114 350.1.13.10 4.2.7.2.686 [id number] 220 [id number] 2020-04-16 00:00:00 2020-04-16 00:00:00 [facility] 1.2.840.114 350.1.13.10 4.2.7.2.686 [id number] 220 [id number] [facility] 2020-04-03 12:00:00 2020-04-03 12:00:00 Outpatient BJ BURCIAGA [facility] [id number] [facility] 2020-03-26 00:00:00 2020-03-26 00:00:00 Orders Only Doctor Unassigned, [place] [facility] 1.2.840.114 350.1.13.10 4.2.7.2.686 [id number] 009 [id number] 2020-03-26 00:00:00 2020-03-26 00:00:00 Orders Only Doctor Unassigned, [place] [facility] 1.2.840.114 350.1.13.10 4.2.7.2.686 [id number] 009 [id number] [facility] 2020-03-16 09:57:45 2020-03-16 10:33:41 Office Visit [facility] 1.2.840.114 350.1.13.10 4.2.7.2.686 [id number] 220 [id number] 2020-03-16 09:57:45 2020-03-16 10:33:41 Office Visit [facility] 1.2.840.114 350.1.13.10 4.2.7.2.686 [id number] 220 [id number] [facility] 2020-03-16 10:00:00 2020-03-16 10:00:00 Outpatient R [facility]ES [facility] [id number] [facility] 2020-03-16 00:00:00 2020-03-16 00:00:00 Orders Only Doctor Unassigned, [place] [facility] 1.2.840.114 350.1.13.10 4.2.7.2.686 [id number] 009 [id number] 2020-03-16 00:00:00 2020-03-16 00:00:00 Letter (Out) Doctor Unassigned, [place] [facility] 1.2.840.114 350.1.13.10 4.2.7.2.686 [id number] 044 [id number] [facility] 2020-03-16 00:00:00 2020-03-16 00:00:00 Orders Only Doctor Unassigned, [place] [facility] 1.2.840.114 350.1.13.10 4.2.7.2.686 [id number] 009 [id number] [facility] 2020-02-17 11:00:00 2020-02-17 11:00:00 Outpatient R INGE CABA [facility] [id number] [facility] 2020-02-07 00:00:00 2020-02-07 00:00:00 Telephone Inge Caba [facility] 1.2.840.114 350.1.13.10 4.2.7.2.686 [id number] 220 [id number] [facility] 2020-01-24 00:00:00 2020-01-24 00:00:[address] [facility] 1.2.840.114 350.1.13.10 4.2.7.2.686 [id number] 220 [id number] [facility] 2020-01-24 00:00:00 2020-01-24 00:00:00 Telephone Inge Caba [facility] 1.2.840.114 350.1.13.10 4.2.7.2.686 [id number] 220 [id number] [facility] 2020-01-01 00:00:00 2020-01-01 00:00:00 Telephone Rsoales Inge [facility] 1.2.840.114 350.1.13.10 4.2.7.2.686 [id number] 220 [id number] [facility] 2019-12-08 00:00:00 2019-12-08 00:00:00 Telephone Inge Caba [facility] 1.2.840.114 350.1.13.10 4.2.7.2.686 [id number] 220 [id number] [facility] 2019-12-06 00:00:00 2019-12-06 00:00:00 Telephone Bj Blackwell [facility] 1.2840.114 350.1.13.10 4.2.7.2.686 [id number] 220 [id number] [facility] 2019-10-16 00:00:00 2019-10-16 00:00:00 Orders Only Doctor Unassigned, [place] [facility] 1.2.840.114 350.1.13.10 4.2.7.2.686 [id number] 009 [id number] [facility] 2019-10-08 00:00:00 2019-10-08 00:00:00 [facility] 1.2840.114 350.1.13.10 4.2.7.2.686 [id number] 220 [id number] [facility] 2019-09-30 11:30:00 2019-09-30 11:30:00 Outpatient R [facility] [id number] [facility] 2019-09-30 08:04:06 2019-09-30 08:34:06 Telemedici ne Visit Douglasmaximo [facility] 1.2840.114 350.1.13.10 4.2.7.2.686 [id number] 220 [id number] [facility] 2019-08-28 00:00:00 2019-08-28 00:00:00 Orders Only Doctor Unassigned, [place] [facility] 1.2840.114 350.1.13.10 4.2.7.2.686 [id number] 009 [id number] [facility] 2019-08-22 00:00:00 2019-08-22 00:00:00 Telephone Douglaschemokhadijah [facility] 1.2840.114 350.1.13.10 4.2.7.2.686 [id number] 220 [id number] [facility] 2019-08-22 00:00:00 2019-08-22 00:00:00 Telephone Inge Caba [facility] Building 1.2.840.114 350.1.13.10 4.2.7.2.686 [id number] 220 [id number] [facility] 2019-08-02 00:00:00 2019-08-02 00:00:00 Orders Only Doctor Unassigned, [place] [facility] 1.2.840.114 350.1.13.10 4.2.7.2.686 [id number] 009 [id number] [facility] 2019-07-31 00:00:00 2019-07-31 00:00:00 Telephone Inge Caba [facility] Building 1.2.840.114 350.1.13.10 4.2.7.2.686 [id number] 220 [id number] [facility] 2019-07-31 00:00:00 2019-07-31 00:00:00 Telephone Inge Caba [facility] Building 1.2.840.114 350.1.13.10 4.2.7.2.686 [id number] 220 [id number] [facility] 2019-07-15 00:00:00 2019-07-15 00:00:00 Telephone Inge Caba [facility] Building 1.2.840.114 350.1.13.10 4.2.7.2.686 [id number] 220 [id number] [facility] 2019-07-14 00:00:00 2019-07-14 00:00:00 Orders Only Doctor Unassigned, [place] [facility] 1.2.840.114 350.1.13.10 4.2.7.2.686 [id number] 009 [id number] [facility] 2019-07-10 00:00:00 2019-07-10 00:00:00 [facility] 1.2.840.114 350.1.13.10 4.2.7.2.686 [id number] 220 [id number] [facility] 2019-07-08 00:00:00 2019-07-08 00:00:00 Telephone Inge Caba [facility] nal Building 1.2.840.114 350.1.13.10 4.2.7.2.686 [id number] 220 [id number] [facility] 2019-07-01 12:57:27 2019-07-01 17:00:06 Office Visit Inge Caba [facility] 1.2.840.114 350.1.13.10 4.2.7.2.686 [id number] 220 [id number] [facility] Results Test Description Test Time Test Comments Results Result Co mments Source [facility] Hemoglobin A1C [id number] 17:37:00* Test Item Value Reference Range Interpretation Comme nts POCT HBA1C (test code = 4548-4) 9.6 % 4-6 A Lab Interpretation (test cod e = 37407-0) Abnormal [facility] HEMOGLOBIN A1C [id number] 18:12:00* Test Item Value Reference Range Interpretation Comme nts POCT HBA1C (test code = 4548-4) 8.0 % 4-6 A Lab Interpretation (test cod e = 17248-8) Abnormal [facility] HEMOGLOBIN A1C [id number] 18:12:00* Test Item Value Reference Range Interpretation Comme nts POCT HBA1C (test code = 4548-4) 8.0 % 4-6 A Lab Interpretation (test cod e = 29544-7) Abnormal [facility] HEMOGLOBIN A1C [id number] 17:33:00* Test Item Value Reference Range Interpretation Comme nts POCT HBA1C (test code = 4548-4) 7.9 % 4-6 A Lab Interpretation (test cod e = 77470-8) Abnormal [facility] HEMOGLOBIN A1C [id number] 17:33:00* Test Item Value Reference Range Interpretation Comme nts POCT HBA1C (test code = 4548-4) 7.9 % 4-6 A Lab Interpretation (test cod e = 72752-7) Abnormal [facility] HEMOGLOBIN A1C [id number] 18:20:00* Test Item Value Reference Range Interpretation Comme [facility] POCT HBA1C (test code = 4548-4) 8.3 % 4-6 A Lab Interpretation (test cod e = 45754-3) Abnormal [facility] HEMOGLOBIN A1C [id number] 18:20:00* Test Item Value Reference Range Interpretation Comme [facility] POCT HBA1C (test code = 4548-4) 8.3 % 4-6 A Lab Interpretation (test cod e = 61827-0) Abnormal [facility] Notes Date/Time Note Provider Source 2023-07-18 17:30:11 5osQF5Y38QmiJSZYbuzK 4lxr7Yv2r1Wee bTlGFqA4TVCZLx64WHuea9S6e8rvEeg36 05-08-047:30:11 Please call patient and let her know that since her insurance will not cover her Víctorxiga, I have placed a prescription for Jardiance instead. 76589-0Zskvdkbdq encounter WqfbIZ3839-41-93I28:35:27Telephon e encounter NoteTXT1.2.840.384776.1.13.104.2. 7.2.107811|5076171150ZENgedvthej for patient yggc16148-9HgymFKADZWURXGHWrgyidg ed C-CDA narrative textUT[address] XidxDmhqzmizgZkptbrgkfRHLR4750945 137KOKMSXXSNCURQNMFVAPDQZ1313-46- 05T17:35:271.2.840.191072.1.72.3. 15|1.2.840.572276.1.13.104.2.7.2. 727879_[id number] [facility] 2023-07-05 10:35:21 5/pWb+lc5zCyuzV6UIAK RSTZXFS+QW5B8 QEUHVWYGlRjtQU26qkdDjIK5Nci4/zG20 08-07-20T10:35:21 RAMILA 04/28/2023NOV 4dapagliflozin (FARXIGA) 10 mg Lon Montes MA 07/05/2023 10:37 AM 07683-9Qporenyij encounter LiseWL3925-03-50X23:38:21Telephon e encounter NoteTXT1.2.840.972625.1.13.104.2. 7.2.468932|5756211818HVFihmiyraf for patient onzd66034-2GsirCKVYOVZEFMNOdsjzhn ed C-CDA narrative textUT[address] AcqoOsauffpupSbbvkwiumNVGL1546496 755OVFPLZDGQTEOAIUVHKARRX2118-20- 21T10:38:211.2.840.505433.1.72.3. 15|1.2.840.210862.1.13.104.2.7.2. 727879_[id number] [facility] 2023-06-21 10:08:21 BJlgZUcuB9a4arAI5Di1 EZ1o0AogV9cPD gktFwRgFKGXMOoCKZk4vk9ClszthA3T73 08-07-06T10:08:21 Spoke with patient and let her [...] heard from pharmacy or been able to brick picker Teddy so I can follow up. Let patient know many medications are requiring a prior authorization but the clinic sometimes does not receive the fax. 70806-4Gajmadret encounter DcvjSN2518-22-15J64:14:21Telephon e encounter NoteTXT1.2.840.519153.1.13.104.2. 7.2.176153|5353068606MJZfmymbuus for patient cvyn01519-4OgcvJPJXIXMNPUCEjpyhev ed C-CDA narrative neho605204809Scfc D Jet[place] [address] 723CUOJOKTQQLTWUHDMRALMDK9933-28- 07T10:14:211.2.840.467225.1.72.3. 15|1.2.840.327069.1.13.104.2.7.2. 727879_[id number] Aga Knutson LVN [facility] 2023-06-21 08:57:21 PcjwXLuDsHGXcP0a92E5 rmTKMarc82BDd x1uXZj8lP/x0APBAw7lDOnnKGbpGJgC92 08-07-06T08:57:21 Noted. Closing encounter 49112-0Lecsajgem encounter ZkzyGM5975-27-21X54:57:33Telephon e encounter NoteTXT1.2.840.126715.1.13.104.2. 7.2.828841|2920286533JDMwpvlkyjk for patient qjpn22053-9WrwhPHQEEMJNFFFLidkvxm ed C-CDA narrative glqe924596668Nbxq D [place] [address]TX[address] 349BSAHNFHMQVFGSAHTWNYRHZ0384-08- 07T08:57:331.2.840.679691.1.72.3. 15|1.2.840.454950.1.13.104.2.7.2. 727879_[id number] Aga Knutson LAUNDRY RO[employer] ATTENDANT [facility] 2023-06-21 08:38:45 BRkXeDnCWCRMxIiaXaQY HI4Vq+Rx411M+ 0JU45mOo3LsBJVcmPODHQB3gE1V/cQF20 08-07-0608:38:45 Ozempic has been stopped. A prescription for Mounjaro 7.5 mg weekly injection has been sent to her local [facility] [place] [address]-3Vaoitoeeo encounter VixuNR4611-69-69X08:45:07Telephon e encounter NoteTXT1.2.840.249464.1.13.104.2. 7.2.745320|6027540905WPOvikyocge for patient saju28940-6FivdAAYCOYHKNIGUdnmogj ed C-CDA narrative textUT[address] PmnmXfppglfmmAwaypzkmbLWMK7757278 208XQOSMZCQJGQPERVXGXAPUW7512-76- 07T08:45:071.2.840.885522.1.72.3. 15|1.2.840.631752.1.13.104.2.7.2. 727879_[id number] [facility] 2023-06-21 08:32:24 JYtXR7UXacX8OVfHF9Rc MBaAj14o7ELqb EUibt11zfoeAY3jQThhRTzuF+/yYyC004 08-07-0608:32:24 Flora Ascencio is a 53 year old female pt is calling stating she is still having elevated blood sugars and Ozempic makes her vomit. Please advise asap 41359-7Maallplnj encounter DfjnAZ1912-65-67E81:34:11Telephon e encounter NoteTXT1.2.840.703703.1.13.104.2. 7.2.727781|6355747591BJQbwjszeuo for patient mebt34747-5PagtCZBXXDKGQUNBjywoup ed C-CDA narrative oses677867115Chczolgy [address]TXTX[address] 564YIQITTTLYYUEVTQGNDZWWV9189-40- 07T08:34:111.2.840.606298.1.72.3. 15|1.2.840.507096.1.13.104.2.7.2. 727879_[id number] [facility] 14:28:34 fguXPrLcvR/z8O+vCuO4 jffdkpr2ai44W fIQBTP268icEYQPPOOLkvvHWLgkldrV67 08-07-05T14:28:34 Mender Hand Karri is calling to talk to the Nurse about the Assessment call yesterday. Please call Karri at [phone] signed by Lauren Wesley at 06/20/2023 2:30 PM PNQ41740-1Opehfnjhc encounter TkeyDX0797-77-60A39:30:01Telephon e encounter NoteTXT1.2.840.791435.1.13.104.2. 7.2.478048|8712930508YHUcrqwxdjl for patient phdh80463-2KkayIZDSYUHUSIRJmcoxar ed C-CDA narrative uybi248507007Lajrs J Boudreau[address]TX[address] 488MLBMVVJOIEUUXVMXTHCLLN2806-85- 06T14:30:011.2.840.919933.1.72.3. 15|1.2.840.701043.1.13.104.2.7.2. 727879_[id number] Lauren Wesley [facility] 2023-06-20 13:27:27 5dlt49Ywem5+bzy2iQaP Rpv4uDuzWtEza T/Z3EYDfLYNpWD7nfC3ZcuOCpdsQRTF32 08-07-053:27:27 Flora Ascencio is a 53 year old femalePts caregiver is calling to speak with a nurse regarding pts blood sugar and vomiting , Please advise 72069-6Kkitmwsqj encounter PotzKQ9868-63-04L82:29:36Telephon e encounter NoteTXT1.2.840.307228.1.13.104.2. 7.2.956463|1098840720FWQqzxqublv for patient fpvm49644-0UjghRXPMFKTCQUDFacqjbn ed C-CDA narrative mefp581761197Vpjkoq [address] IlezFgnsxzmbeUdjutlrfvHWGG7475777 327HWSUXHKCKKMWLADFOBMFKK4065-36- 06T13:29:361.2.840.873117.1.72.3. 15|1.2.840.555450.1.13.104.2.7.2. 727879_[id number] Rut Navarrete [facility] 2023-06-20 10:32:16 Jasmyne/Kai/PROCfLAcgr MAYimMdqe6+63 1kQqYxmPlgcz3HsVXgcunkOq5yAFw8U33 08-07-050:32:16 Flora Ascencio is a 53 year old femalePt is calling back requesting to speak with a nurse 70764-5Wpbqvjdal encounter UzjhCN5844-49-15P26:32:46Telephon e encounter NoteTXT1.2.840.183803.1.13.104.2. 7.2.247780|9638769195XYEahgfexgs for patient jgxn25317-2XytsUVNMWMDXITHFwbmnfs ed C-CDA narrative uqit431016567Uiqnxv Mayra Hay[address] 065YTBXTVFHSQQIPPOCHCCZDB0468-21- 06T10:32:461.2.840.691328.1.72.3. 15|1.2.840.238839.1.13.104.2.7.2. 727879_[id number] Chinyere Guido [facility] 2023-06-20 09:11:52 2qj/dPNs6iVIGM0beyGq Jose/5LdRZZQR D5qsJEVIsBpmbieFGGuGf5bQ1ZSp0tk59 08-07-05T09:11:52 Flora Ascencio is a 53 year old femalePatient mother calling in requesting a call back from nurse regarding pts sugar being high in the mornings.[phone] - [phone] - correll number 45493-9Ywdxgsikc encounter YxepXA2699-80-60P41:13:20Telephon e encounter NoteTXT1.2.840.654643.1.13.104.2. 7.2.114249|3061346658IJZyfsrdjug for patient uyvc57543-0VezhAPGBSTTYUNSYuywbqc ed C-CDA narrative atww879462144Hhpy [address]TXTX[address] 573NAQILIXPKDADXMODNQCWTC7230-82- 06T09:13:201.2.840.531431.1.72.3. 15|1.2.840.921595.1.13.104.2.7.2. 727879_[id number] Madelyn Curtis [facility] 2023-06-19 15:11:01 p9iPZHCslYAp3tJMOa/0 HsTHbaWxQIERL eEf3r721gJc+TxyDI4+mwiLOGvu4QTB36 08-07-045:11:01 Pt florin moon call 48993-9Wvrfkgmnt encounter KhcjPW2217-99-00B55:11:13Telephon e encounter NoteTXT1.2.840.533896.1.13.104.2. 7.2.472195|9420851134REOjrubnpun for patient nzha94354-1LewwUOZRYXLOQYZPvwlcyg ed C-CDA narrative dadq782959510Ubwycov H [address]linger[address] DwdnUnjabxubiYrqtvhflaBPUV4160869 722XDQXOLYLRBQITONTAMPTCE6355-69- 05T15:11:131.2.840.881658.1.72.3. 15|1.2.840.579024.1.13.104.2.7.2. 727879_[id number] Diann Mckinney [facility] 2023-06-19 14:58:52 5gVc/kbZ34IUqn8q7Nn4 j6zQ9268HYcMv SjGfknw5JZU3eJvY5Ow2vrF4/cLHYA003 08-07-044:58:52 Reached out to patient but no answer. Left message. 91338-0Yabatvsct encounter AktzXE5022-98-94C26:59:21Telephon e encounter NoteTXT1.2.840.419560.1.13.104.2. 7.2.581593|6725907588HMRqsmznomn for patient etue02073-7DnqvXENHZMRCQCZWfxzlba ed C-CDA narrative text[address]TXTX[address] 683OFBVUBDOKLERIKVLLIBJMU0624-72- 05T14:59:211.2.840.799336.1.72.3. 15|1.2.840.623564.1.13.104.2.7.2. 727879_[id number] [facility] 2023-06-19 14:39:12 TtNgvG8vNkOUa8roi9DJ R4aaSh/Ad0QSc 8pvjSgBTuwrTWwiKfaYgrf2PfgXoR5N38 08-07-044:39:12 Pt is returning call to the nurse about her blood sugar being [phone] signed by Lauren Wesley at 06/19/2023 2:41 PM VCP09456-2Zxenooozs encounter BnitZX0955-46-18J54:41:16Telephon e encounter NoteTXT1.2.840.184929.1.13.104.2. 7.2.162952|9080973690PWVwscwgpju for patient adyd70814-0XxrxIHZLQJSQCZWPimmwvv ed C-CDA narrative textUT[address]TXTX[address] 993BHTMRBIUIBFOWJPUJKCPVD5472-14- 05T14:41:161.2.840.824123.1.72.3. 15|1.2.840.616641.1.13.104.2.7.2. 727879_[id number] [facility] 2023-06-19 08:28:46 Fm5j7wFq7a6XGZQAisrI GnWvLWlOMBbWJ tZRt4byjWfvjboa1NwKAZrCQ/4Ai2NO12 08-07-0408:28:46 Pt states that her meds are not helping. Pt states that her blood sugar is 300. She states that Ozempic makes her vomit. Pls advise. 91056-5Gxncjojlh encounter KqafQP9143-96-87J05:29:57Telephon e encounter NoteTXT1.2.840.345738.1.13.104.2. 7.2.522728|9276522802UYVohmjeega for patient gjsm95426-1IaalNBSEOPQAHPTNseptqw ed C-CDA narrative exbv838231724Ogesqldc [address] OiaxCxgxeaqsyTzbjreqjlBLDG2131093 893FOSVACCSTPENSQPMOSCHEM2386-68- 05T08:29:571.2.840.863059.1.72.3. 15|1.2.840.709992.1.13.104.2.7.2. 727879_[id number] Danilo [facility] 2023-05-23 10:09:53 EXcsth1JIG3/7j3LvUVS kDglHcCeOsOij tishEDZ/vGbcVyF0YReC1lTtrgLkQ7r81 07-06-080:09:53 RAMILA 04/28/23NOV 08/25/23Per RAMILA note:Please restart Glimepiride 2 mg BID 52501-7Entosphek encounter ArscNC6796-77-68T62:11:09Telephon e encounter NoteTXT1.2.840.759534.1.13.104.2. 7.2.892029|5420342220RRRmrpcxqzu for patient xofb09924-7TxagKTBMFQMUPMHZvypywu ed C-CDA narrative textUT[address] StreetUhjgCjljwzglhMmoxqffdxLRWO5281535 604SIXANTWYWMZGTUKQQSUMHH5960-97- 09T10:11:091.2.840.451520.1.72.3. 15|1.2.840.134097.1.13.104.2.7.2. 727879_[id number] [facility] 2023-05-22 17:24:23 nwlSRGXy5u+nSj4MpiQo ZVzDi8AV188wv gSn0XEsqmIySpPnU1ki5hZUYBLfZWcE24 07-06-077:24:23 Images from the original note were not included. 79051-7Fjjdpkfal encounter TnnaUA8828-46-56J16:25:05Telephon e encounter NoteTXT1.2.840.523425.1.13.104.2. 7.2.714093|8400260715UWXybmjqshp for patient musw11210-8IyszRCQZFAWTKJWYxlbzmc ed C-CDA narrative xewx463813139Lkevxd NallUT34 [address] StreetSczvFflgjagzpPiqddhfraCYUH9563302 461PNZSKJPBUKIBWTEVZZDPNU6757-56- 08T17:25:051.2.840.398432.1.72.3. 15|1.2.840.754725.1.13.104.2.7.2. 727879_[id number] Ginger Thomas [facility]"
--- NOTE | 2023-08-01 00:24 | ER ---
Nurse's Notes [facility] Name: Flora Ascencio Age: 53 yrs Sex: Female : 1970 Arrival Date: 07/31/2023 Time: 23:23 Bed 20 Private MD: Diagnosis: Disorder of teeth and supporting structures, unspecified;Other forms of stomatitis Presentation: 07/30 23:23 Chief complaint: Patient states: MOUTH PAIN. WAS SEEN IN THE ER LAST WEEK AND WAS GIVEN jj7 A SHOT FOR PAIN AND ANTIBIOTICS STATES SHE WANTS ANOTHER SHOT AND ANTIBIOTICS. FEELS BETTER JUST BEING IN THE ER. EMS states: MOUTH PAIN. WAS SEEN BY DENTIST AND ER DOCTOR. HAS TAKEN A COURSE OF ANTIBIOTICS ALREADY. DIDN'T HOME CARE CHAPLAIN HER PRESCRIPTION FOR KEFLEX TODAY AND WANTED TO COME HERE. Coronavirus screen: At this time, the client does not indicate any symptoms associated with coronavirus-19. Ebola Screen: No symptoms or risks identified at this time. Initial Sepsis Screen: Does the patient meet any 2 criteria? No. Patient's initial sepsis screen is negative. Does the patient have a suspected source of infection? No. Patient's initial sepsis screen is negative. Risk Assessment: Do you want to hurt yourself or someone else? Patient reports no desire to harm self or others. 23:23 Method Of Arrival: EMS: [facility] 23:23 Acuity: LILLIANA 5 [facility] 23:30 Onset of symptoms was July 31, 2023. [facility] Triage Assessment: 23:23 General: Appears in no apparent distress. comfortable, Behavior is calm, cooperative, jj7 appropriate for age. Pain: Complains of pain in hard palate, soft palate, left buccal mucosa and right buccal mucosa Pain currently is 3 out of 10 on a pain scale. 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 - Social history:: Smoking status: Patient/guardian denies using tobacco, Stopped _ months ago 2 Patient/guardian denies using alcohol, street drugs, IV drugs. Screenin:23 [facility] ED Fall Risk Assessment (Adult) History of falling in the last 3 months, jj7 including since admission No falls in past 3 months (0 pts) Confusion or Disorientation No (0 pts) Intoxicated or Sedated No (0 pts) Impaired Gait No (0 pts) Mobility Assist Device Used No (0 pt) Altered Elimination No (0 pt) Score/Fall Risk Level 0 - 2 = Low Risk Oriented to surroundings, Maintained a safe environment, Educated pt \T\ family on fall prevention, incl call for assistance when getting out of bed. Abuse screen: Denies threats or abuse. Nutritional screening: No deficits noted. Tuberculosis screening: No symptoms or risk factors identified. Assessment: 23:23 Reassessment: SEE TRIAGE ASSESSMENT. jj7 Vital Signs: 23:23 BP 161 / 105; Pulse 93; Resp 18; Temp 97.3; Pulse Ox 98% ; Weight 136.08 kg; Height 5 j7 ft. 8 in. ; Pain 3/10; 07/31 00:30 BP 158 / 93; Pulse 90; Resp 16; Pulse Ox 97% ; Pain 0/10; jj7 07/30 23:23 Body Mass Index 45.61 (136.08 kg, 172.72 cm) j7 0318 23:23 Pain Scale: Adult jj7 07/31 00:30 Pain Scale: Adult jj7 ED Course: 07/30 23:23 Arm band placed on right wrist. Patient placed in an exam room, on a stretcher, on jj7 pulse oximetry. 23:23 Patient has correct armband on for positive identification. Bed in low position. Call jj7 light in reach. Side rails up X2. 23:23 No provider procedures requiring assistance completed. Patient did not have IV access jj7 during this emergency room visit. 23:30 Provided Education on: USE OF CALL VILLALOBOS. jj7 23:37 Patient arrived in ED. jj7 23:38 Aliza Chopra RN is Primary Nurse. jj7 23:42 Harpal Oliveira PA is PHCP. cp 23:42 Harpal Ayala MD is Attending Physician. cp 23:42 Triage completed. jj7 Administered Medications: 07/31 00:25 Drug: GI Cocktail without - (Maalox PO 30 ml, Lidocaine Mucous Membrane 2 % 15 jj7 ml) PO once Route: PO; 00:40 Follow up: Response: Marked relief of symptoms jj7 00:25 Drug: Amoxicillin-Clavulanate PO 875 mg PO once Route: PO; jj7 00:40 Follow up: Response: Marked relief of symptoms jj7 00:25 Drug: Ketorolac IM 30 mg IM once Route: IM; Site: right deltoid; jj7 00:40 Follow up: Response: Marked relief of symptoms jj7 Medication: 00:30 VIS not applicable for this client. jj7 Outcome: 00:24 Discharge ordered by . own 00:40 Discharged to home ambulatory, jj7 00:40 Condition: improved 00:40 Discharge instructions given to patient, Instructed on discharge instructions, follow up and referral plans. medication usage, Demonstrated understanding of instructions, follow-up care, medications, Prescriptions given X 2, 00:40 Patient left the ED. jj7 Signatures: Harpal Oliveira PA PA cp Johnson, Juwairiyah RN RN jj7 Corrections: (The following items were deleted from the chart) 00:51 00:50 Patient left the ED. jj7 jj7
--- NOTE | 2023-08-01 00:25 | EDPHYS ---
Physician Documentation [facility] Name: Flora Ascencio Age: 53 yrs Sex: Female : 1970 Arrival Date: 07/31/2023 Time: 23:23 Bed 20 Private MD: ED Physician Harpal Ayala HPI: 07/30 23:52 This 53 yrs old Female presents to ER via EMS with complaints of Tooth Pain. cp 23:52 The patient presents with pain, ulceration. The problem is located in the right upper cp jaw and left lower jaw. 23:52 Onset: The symptoms/episode began/occurred last week. cp 23:52 Duration: The symptoms are continuous. Associated signs and symptoms: Pertinent cp negatives: dysphagia, fever, inability to eat, vomiting. Severity of symptoms: in the emergency department the symptoms are unchanged, despite home interventions. 23:52 Patient reports being seen 4 days ago for similar complaints. Has RX at pharmacy for cp Keflex that she has not started. Reports to be using OTC mouthwash every 30 to 45 minutes due to mouth pain. 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 - Social history:: Smoking status: Patient/guardian denies using tobacco, Stopped _ months ago 2 Patient/guardian denies using alcohol, street drugs, IV drugs. ROS: 23:55 ENT: Positive for dental pain, Negative for drainage from ear(s), ear pain, sore cp throat, difficulty swallowing, difficulty handling secretions, 23:55 Constitutional: Negative for fever, cp Exam: 23:59 Constitutional: The patient appears in no acute distress, alert, awake, non-toxic, well cp developed, well nourished, obese, 23:59 Head/Face: Normocephalic, atraumatic. cp 23:59 Eyes: Periorbital structures: appear normal, Conjunctiva: normal, no exudate, no injection, Sclera: no appreciated abnormality, Lids and lashes: appear normal, bilaterally, 23:59 ENT: External ear(s): are unremarkable, Ear canal(s): are normal, clear, TM's: dullness, bilaterally, Nose: is normal, Mouth: Lips: moist, mild erythema, mild swelling, Oral mucosa: moist, noted to have obvious stomatitis, reddened, Gums: reddened, swollen, abscess, is not appreciated, Posterior pharynx: Airway: no evidence of obstruction, patent, erythema, that is moderate, exudate, is not appreciated, Dental exam: abscess, is not appreciated, dental caries, that is mild, diffusely, pain, that is mild, specifically in the upper right first molar (#3) and lower left first molar (#19), Voice: is normal, 23:59 Neck: ROM/movement: is normal, is supple, without pain, no range of motions limitations, no meningismus, 23:59 Chest/axilla: Inspection: normal, 23:59 Cardiovascular: Rate: normal, Rhythm: regular, 23:59 Respiratory: the patient does not display signs of respiratory distress, Respirations: normal, no use of accessory muscles, no retractions, labored breathing, is not present, Breath sounds: are clear throughout, no decreased breath sounds, no stridor, no wheezing, 23:59 Abdomen/GI: Inspection: obese Palpation: abdomen is soft and non-tender, 23:59 Neuro: Orientation: to person, place \T\ time. Mentation: is normal, Vital Signs: 23:23 BP 161 / 105; Pulse 93; Resp 18; Temp 97.3; Pulse Ox 98% ; Weight 136.08 kg; Height 5 jj7 ft. 8 in. ; Pain 3/10; 07/31 00:30 BP 158 / 93; Pulse 90; Resp 16; Pulse Ox 97% ; Pain 0/10; [facility] 07/30 23:23 Body Mass Index 45.61 (136.08 kg, 172.72 cm) [facility] 07/30 23:23 Pain Scale: Adult j7 07/31 00:30 Pain Scale: Adult [facility] MDM: 07/30 23:42 Patient medically screened. cp 07/31 00:00 Differential diagnosis: dental caries, gingivitis, dental abscess, pericoronitis, cp aphthous ulcers. 00:23 Data reviewed: vital signs, nurses notes, and as a result, I will discharge patient. cp 00:23 I considered the following discharge prescriptions or medication management in the cp emergency department Medications were administered in the Emergency Department. See MAR. Care significantly affected by the following chronic conditions: Diabetes, Hypertension, Obesity. Counseling: I had a detailed discussion with the patient and/or guardian regarding the historical points, exam findings, and any diagnostic results supporting the discharge/admit diagnosis, to return to the emergency department if symptoms worsen or persist or if there are any questions or concerns that arise at home. ED course: VSS. Patient non-toxic. Will discharge to home for continued monitoring. Administered Medications: 00:25 Drug: GI Cocktail without - (Maalox PO 30 ml, Lidocaine Mucous Membrane 2 % 15 jj7 ml) PO once Route: PO; 00:40 Follow up: Response: Marked relief of symptoms jj7 00:25 Drug: Amoxicillin-Clavulanate PO 875 mg PO once Route: PO; jj7 00:40 Follow up: Response: Marked relief of symptoms jj7 00:25 Drug: Ketorolac IM 30 mg IM once Route: IM; Site: right deltoid; jj7 00:40 Follow up: Response: Marked relief of symptoms jj7 Disposition Summary: 08/01/23 00:24 Discharge Ordered Notes: Location: Home cp Problem: an ongoing problem cp Symptoms: have improved cp Condition: Stable cp Diagnosis - Disorder of teeth and supporting structures, unspecified cp - Other forms of stomatitis cp Followup: cp - With: Private Physician - When: 2 - 3 days - Reason: Recheck today's complaints Discharge Instructions: - Discharge Summary Sheet cp - Dental Pain cp - Stomatitis cp Forms: - Medication Reconciliation Form cp - Thank You Letter cp - Antibiotic Education cp - Prescription Opioid Use cp - Patient Portal Instructions cp - Leadership Thank You Letter cp Prescriptions: - Lidocaine Viscous - take 5 milliliter ORAL route every 4-6 hours As needed; 236 milliliter; cp Refills: 0, Product Selection Permitted - Amoxicillin 875 mg Oral Tablet - take 1 tablet ORAL route every 12 hours for 10 days; 20 tablet; Refills: 0, cp Product Selection Permitted Signatures: Harpal Oliveira PA PA cp Johnson, Juwairiyah, RN RN jj7 Corrections: (The following items were deleted from the chart) 00:25 00:24 Other lesions of oral mucosa cp cp
[2023-08-01 01:09] VITALS: BP 161/105; TEMP 97.3; O2SAT 98
== END ==
LOC: ER 23:23
DX: K08.89 Other specified disorders of teeth and supporting structures (principal); K12.1 Other forms of stomatitis; Z88.5 Allergy status to narcotic agent

== ENCOUNTER 2024-08-09 09:57 | Emergency (ER) | payer OTHER ==
[2024-08-09 11:37] LABS: Absolute Basophils 0.1 K/uL (0-0.5); Absolute Eosinophils 0.1 K/uL (0-0.5); Absolute Lymphocytes (CBC) 1.9 K/uL (0.7-4.9); Absolute Monocytes 0.6 K/uL (0.1-1.3); Absolute Neutrophil 4.1 K/uL (1.8-8.0); Basophils % 1.2 % (0-1.3); Eosinophils % 1.9 % (0-4.4); Hematocrit 44.6 % (36.0-45.0); Hemoglobin 15.4 g/dL (12.0-15.0); Lymphocytes % 28.1 % (15.3-44.8); MCH 30.3 pg (27.0-35.0); MCHC 34.6 g/dL (32.0-36.0); MCV 87.7 fL (80-100); MPV 8.6 fL (7.6-11.3); Monocytes % 8.5 % (3.3-12.3); Neutrophils % 60.3 % (41.7-73.7); Platelets 261 thou/uL (152-406); RBC Red Blood Cell Count 5.09 M/uL (3.86-4.86); Red Cell Distribution Width 15.4 % (12.1-15.2)
[2024-08-09 12:34] LABS: ALT/SGPT 29 U/L (13-56); AST/SGOT 12 U/L (15-37); Albumin 3.3 g/dL (3.4-5.0); Albumin/Globulin Ratio 0.9 (1.1-1.8); Alkaline Phosphatase 68 U/L (45-117); Anion Gap 12.8 mEq/L (5.0-15.0); BUN Blood Urea Nitrogen 16 mg/dL (7-18); Bicarbonate 23 mEq/L (21-32); Bilirubin Direct 0.2 mg/dL (0-0.2); Bilirubin Indirect, Calculated 0.4 mg/dL (0.2-0.8); Bilirubin Total 0.6 mg/dL (0.2-1.0); Globulin 3.7 g/dL (2.3-3.5); Glomerular Filtration Rate 96 ml/min (=/>90); Glucose Level 315 mg/dL (74-106); Potassium 3.8 mEq/L (3.5-5.1); Sodium Level 137 mEq/L (136-145)
[2024-08-09 12:36] LABS: Troponin High Sensitivity < 3.0 pg/mL (<58.9)
--- NOTE | 2024-08-09 12:47 | ER ---
Nurse's Notes [facility] Name: Flora Ascencio Age: 54 yrs Sex: Female : 1970 Arrival Date: 08/09/2024 Time: 09:57 Bed 16 Private MD: Diagnosis: Hypotension resolved Presentation: 08/09 10:30 Chief complaint: Patient states: Low BP yesterday 98/54, PCP sent to ED for evaluation. jl7 Coronavirus screen: At this time, the client does not indicate any symptoms associated with coronavirus-19. Ebola Screen: No symptoms or risks identified at this time. Initial Sepsis Screen: Does the patient meet any 2 criteria? No. Patient's initial sepsis screen is negative. Does the patient have a suspected source of infection? No. Patient's initial sepsis screen is negative. Risk Assessment: Do you want to hurt yourself or someone else? Patient reports no desire to harm self or others. Onset of symptoms is unknown. 10:30 Method Of Arrival: Ambulatory jl7 10:30 Acuity: LILLIANA 3 jl7 Triage Assessment: 10:32 General: Appears in no apparent distress. uncomfortable, Behavior is calm, cooperative, jl7 appropriate for age. Pain: Denies pain. 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 - Infectious Disease History:: Denies. - Social history:: Smoking status: Patient denies any tobacco usage or history of. Screenin:30 [facility] ED Fall Risk Assessment (Adult) History of falling in the last 3 months, cm10 including since admission No falls in past 3 months (0 pts) Confusion or Disorientation No (0 pts) Intoxicated or Sedated No (0 pts) Impaired Gait No (0 pts) Mobility Assist Device Used No (0 pt) Altered Elimination No (0 pt) Score/Fall Risk Level 0 - 2 = Low Risk Oriented to surroundings, Maintained a safe environment, Hourly rounding (assess needs \T\ fall precautionary measures) done. Abuse screen: Denies threats or abuse. Denies injuries from another. Nutritional screening: No deficits noted. Tuberculosis screening: No symptoms or risk factors identified. Assessment: 10:30 General: Appears in no apparent distress. comfortable, Behavior is calm, cooperative. cm10 Pain: Denies pain. Neuro: No deficits noted. Level of Consciousness is awake, alert, obeys commands, Oriented to person, place, time, situation, Appropriate for age. Cardiovascular: No deficits noted. Patient's skin is warm and dry. Respiratory: No deficits noted. Airway is patent Respiratory effort is even, unlabored, Respiratory pattern is regular, symmetrical. Respiratory: Breath sounds are clear bilaterally. Derm: Skin is pink, warm \T\ dry. Musculoskeletal: No deficits noted. Range of motion: intact in all extremities. 12:45 Reassessment: Pt refusing chest x-ray. Asking to have IV removed and would like to cm10 leave. Vital Signs: 10:30 BP 107 / 81; Pulse 107; Resp 17; Temp 98.5; Pulse Ox 95% ; Weight 125.65 kg; Height 5 jl7 ft. 8 in. ; Pain 0/10; 10:46 BP 114 / 86 Supine; Pulse 97; Pulse Ox 96% on R/A; cc6 10:48 BP 128 / 77 Sitting; Pulse 100; Pulse Ox 91% on R/A; cc6 10:50 BP 97 / 63; Pulse 108; Pulse Ox 94% on R/A; cc6 12:00 BP 125 / 84; Pulse 93; Resp 15; Pulse Ox 95% ; cm10 10:30 Body Mass Index 42.12 (125.65 kg, 172.72 cm) jl7 10:30 Pain Scale: Adult jl7 ED Course: 09:59 Patient arrived in ED. im 10:00 Adonay Whatley MD is Attending Physician. sp3 10:21 Huma Quinonez, [place] is Primary Nurse. cm10 10:30 Patient has correct armband on for positive identification. Bed in low position. Call 10 light in reach. 10:32 Triage completed. jl7 10:32 Arm band placed on right wrist. jl7 11:06 EKG done, by ED staff, reviewed by Adonay Whatley MD. cm10 11:20 Initial lab(s) drawn, by ks, sent to lab. Inserted saline lock: 22 gauge in left bp forearm, using aseptic technique. Blood collected. Flushed with 10 mL NS. 12:57 Provided Education on: Follow-up instructions. cm10 12:57 No provider procedures requiring assistance completed. IV discontinued, intact, cm10 bleeding controlled, No redness/swelling at site. Pressure dressing applied. Administered Medications: No medications were administered Medication: 10:30 VIS not applicable for this client. cm10 Outcome: 12:46 Discharge ordered by MD. nelson 12:58 Discharged to home ambulatory, cm10 12:58 Condition: good 12:58 Discharge instructions given to patient, Instructed on discharge instructions, follow up and referral plans. Demonstrated understanding of instructions, follow-up care, 12:58 Patient left the ED. cm10 Signatures: Basilia Saravia RN RN jl7 Josh Valentin RN RN bp Adonay Whatley MD MD sp3 Ronit Real Clarissa RN RN cm10 Daylin Mondragon 6
--- NOTE | 2024-08-09 12:47 | EDPHYS ---
Physician Documentation [facility] Name: Flora Ascencio Age: 54 yrs Sex: Female : 1970 Arrival Date: 08/09/2024 Time: 09:57 Bed 16 Private MD: ED Physician Adonay Whatley HPI: 08/09 10:49 This 54 yrs old Female presents to ER via Ambulatory with complaints of low blood sp3 pressure resolved; No complaints. 10:50 54-year-old female with history of diabetes, hypertension, schizophrenia, depression sp3 presents to the ED with chief complaint "my blood pressure was low yesterday when the visiting insurance nurse came at 98/50". She states her blood pressure is normally in the 110-120 range. She is having no symptoms including chest pain, shortness of breath, headache, fever, abdominal pain, nausea, vomiting, diarrhea, syncope, near syncope, dyspnea on exertion, decrease in urine output, or any other signs or symptoms on ROS at this time. She reports no sick contacts or travel history. No change in any recent medications. Blood sugars have been normal.. 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 - Infectious Disease History:: Denies. - Social history:: Smoking status: Patient denies any tobacco usage or history of. ROS: 10:54 Constitutional: Negative for fever, chills, and weight loss, Eyes: Negative for injury, sp3 pain, redness, and discharge, ENT: Negative for injury, pain, and discharge, Neck: Negative for injury, pain, and swelling, Cardiovascular: Negative for chest pain, palpitations, and edema, Respiratory: Negative for shortness of breath, cough, wheezing, and pleuritic chest pain, Abdomen/GI: Negative for abdominal pain, nausea, vomiting, diarrhea, and constipation, Back: Negative for injury and pain, MS/Extremity: Negative for injury and deformity, Skin: Negative for injury, rash, and discoloration, Neuro: Negative for headache, weakness, numbness, tingling, and seizure, Psych: Negative for depression, anxiety, suicide ideation, homicidal ideation, and hallucinations, Allergy/Immunology: Negative for hives, rash, and allergies, Endocrine: Negative for neck swelling, polydipsia, polyuria, polyphagia, and marked weight changes, Hematologic/Lymphatic: Negative for swollen nodes, abnormal bleeding, and unusual bruising, 10:54 All other systems are negative, Exam: 10:54 Constitutional: This is a well developed, well nourished patient who is awake, alert, sp3 and in no acute distress. Head/Face: Normocephalic, atraumatic. Eyes: Pupils equal round and reactive to light, extra-ocular motions intact. Lids and lashes normal. Conjunctiva and sclera are non-icteric and not injected. Cornea within normal limits. Periorbital areas with no swelling, redness, or edema. ENT: Nares patent. No nasal discharge, no septal abnormalities noted. External auditory canals are clear. Oropharynx with no redness, swelling, or masses, exudates, or evidence of obstruction, uvula midline. Mucous membranes moist. Neck: Trachea midline, no thyromegaly or masses palpated, and no cervical lymphadenopathy. Supple, full range of motion without nuchal rigidity, or vertebral point tenderness. No Meningismus. Chest/axilla: Normal chest wall appearance and motion. Nontender with no deformity. No lesions are appreciated. Cardiovascular: Regular rate and rhythm with a normal S1 and S2. No gallops, murmurs, or rubs. Normal PMI, no JVD. No pulse deficits. Respiratory: Lungs have equal breath sounds bilaterally, clear to auscultation and percussion. No rales, rhonchi or wheezes noted. No increased work of breathing, no retractions or nasal flaring. Abdomen/GI: Soft, non-tender, with normal bowel sounds. No distension or tympany. No guarding or rebound. No evidence of tenderness throughout. Back: No spinal tenderness. No costovertebral tenderness. Full range of motion. Skin: Warm, dry with normal turgor. Normal color with no rashes, no lesions, and no evidence of cellulitis. MS/ Extremity: Pulses equal, no cyanosis. Neurovascular intact. Full, normal range of motion. Neuro: Awake and alert, GCS 15, oriented to person, place, time, and situation. Cranial nerves II-XII grossly intact. Motor strength 5/5 in all extremities. Sensory grossly intact. Cerebellar exam normal. Normal gait. Psych: Awake, alert, with orientation to person, place and time. Behavior, mood, and affect are within normal limits. 11:13 ECG was reviewed by the Attending Physician. EKG demonstrates normal sinus rhythm at 96 sp3 bpm with normal intervals, normal axis, normal QRS except nonspecific intraventricular delay and nonspecific diffuse ST/T changes without evidence of acute ischemia. Vital Signs: 10:30 BP 107 / 81; Pulse 107; Resp 17; Temp 98.5; Pulse Ox 95% ; Weight 125.65 kg; Height 5 jl7 ft. 8 in. ; Pain 0/10; 10:46 BP 114 / 86 Supine; Pulse 97; Pulse Ox 96% on R/A; cc6 10:48 BP 128 / 77 Sitting; Pulse 100; Pulse Ox 91% on R/A; cc6 10:50 BP 97 / 63; Pulse 108; Pulse Ox 94% on R/A; cc6 12:00 BP 125 / 84; Pulse 93; Resp 15; Pulse Ox 95% ; cm10 10:30 Body Mass Index 42.12 (125.65 kg, 172.72 cm) jl7 10:30 Pain Scale: Adult jl7 MDM: 10:19 Medical Screening Exam initiated sp3 10:55 Data reviewed: vital signs, nurses notes, EKG. ED course: 54-year-old female with PMH sp3 above with a resolved very mild low blood pressure yesterday. She is only here because the nurse said that she should potentially go get "checked out". Her blood pressure machine at home did not work so she came here for blood pressure recheck. Here it is 107/81. Pulse was initially 107 when she first walked in however is in the low 90s now. Patient with no complaints and normal physical exam. Patient is alert and oriented I do not believe she is hypoglycemic. Will obtain EKG and orthostatic vital signs. If normal, patient is safe for discharge with follow-up to PCP as needed.. 11:14 ED course: Nonspecific changes on EKG so we will obtain routine labs and troponin. If sp3 negative discharge home.. 12:46 ED course: Labs negative. Waiting on x-ray however patient is wanting to leave. And we sp3 will discharge her home at this time.. 08/09 11:09 Order name: Basic Metabolic Panel; Complete Time: 12:37 sp3 08/09 11:09 Order name: CBC with Diff; Complete Time: 12:34 sp3 08/09 11:09 Order name: LFT's; Complete Time: 12:37 sp3 08/09 11:09 Order name: Troponin HS; Complete Time: 12:37 sp3 08/09 10:45 Order name: EKG; Complete Time: 10:45 sp3 08/09 10:45 Order name: EKG - Nurse/Tech; Complete Time: 11:06 sp3 08/09 10:45 Order name: Orthostatics; Complete Time: 10:57 sp3 08/09 11:09 Order name: IV Saline Lock; Complete Time: 11:20 sp3 08/09 11:09 Order name: Labs collected and sent; Complete Time: 11:20 sp3 Administered Medications: No medications were administered Disposition Summary: 08/09/24 12:46 Discharge Ordered Notes: Location: Home sp3 Condition: Stable sp3 Diagnosis - Hypotension resolved sp3 Followup: sp3 - With: Private Physician - When: Upon discharge from the Emergency Department - Reason: Continuance of care Discharge Instructions: - Discharge Summary Sheet sp3 - Hypotension, [id number] sp3 Forms: - Medication Reconciliation Form sp3 - Antibiotic Education sp3 - Prescription Opioid Use sp3 - Patient Portal Instructions sp3 - Leadership Thank You Letter sp3 Signatures: Dispatcher [employer] Basilia Solo RN RN jl7 Adonay Whatley MD MD sp3 Corrections: (The following items were deleted from the chart) 12:56 11:09 Chest Single View+[email or web address] ordered. EDMS EDMS
[2024-08-09 13:22] VITALS: TEMP 98.5
[2024-08-09 13:26] VITALS: BP 125/84; O2SAT 95
--- NOTE | 2024-08-12 11:29 | EKG ---
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
== END 2024-08-09 12:58 | disposition home or self-care (01) ==
LOC: ER 09:57
DX: I95.9 Hypotension, unspecified (principal); E11.9 Type 2 diabetes mellitus without complications; I10 Essential (primary) hypertension
CPT/HCPCS: 36415; 80048; 80076; 84484; 85025; 93005; 99284